=== PATIENT | female | born 1955 | race Caucasian/White ===

== ENCOUNTER → 2018-02-10 02:24 | Outpatient (CLI) | payer OTHER, SELFPAY ==
[2018-02-10 12:58] LABS: Hemoglobin A1C 7.5 % (4.5-6.2)
[2018-02-10 13:10] LABS: ALT 17 U/L (12-78); AST 9 U/L (15-37); Albumin 3.5 g/dL (3.4-5.0); Alkaline Phosphatase 75 U/L (46-116); Anion Gap 5.8 mmol/L (3-11); BUN 15 mg/dL (7-18); Bilirubin, Total 0.8 mg/dL (0.2-1.0); CO2 32.2 mmol/L (21.0-32.0); CREATININE 0.79 mg/dL (0.55-1.02); Calcium 9.1 mg/dL (8.5-10.1); Chloride 103 mmol/L (98-107); Cholesterol 143 mg/dL (50-200); Glucose 161 mg/dL (70-100); HDL Cholesterol 62 mg/dL (40-60); LDL CHOLESTEROL 71 mg/dL (<100); Potassium 4.5 mmol/L (3.5-5.1); Sodium 141 mmol/L (136-145); Total Protein 6.7 g/dL (6.4-8.2); Triglyceride 66 mg/dL (30-150)
[2018-02-10 13:30] LABS: COMMENT (LAB VIEW ONLY) 35.19 mg/dL; Microalb ug/mg Crea 30.7 ug/mg Cr
== END ==
PROVIDERS: PCP Family Medicine; Visit Provider Family Medicine
DX: E78.5 Hyperlipidemia, unspecified (principal); E03.9 Hypothyroidism, unspecified; E11.8 Type 2 diabetes mellitus with unspecified complications; Z79.4 Long term (current) use of insulin
CPT/HCPCS: 36415; 80053; 80061; 83721; 82043; 82570; 83036; 84443

== ENCOUNTER 2018-03-05 14:25 | Emergency (ER) | payer OTHER, SELFPAY ==
[2018-03-05] VITALS (46 sets, daily range): BP systolic 66–146; BP diastolic 40–113; PULSE 57–88; RESP 11–26; TEMP 36.8; O2SAT 92–98
--- NOTE | 2018-03-05 14:57 | W.ED.GENAD ---
Discharge Plan Disposition Patient Disposition: HOME Condition: Stable Discharge Details Chief Complaint: Chest Pain Clinical Impression: Chest pain Primary Care Provider: Rocio Mo ED Provider: Lashell Whalen Home Meds and New Rx's Prescriptions: Continue amitriptyline 25 MG tablet 25 mg PO HS Qty: 30 RF: 12 montelukast 10 MG tablet 10 mg PO DAILY Qty: 90 RF: 4 insulin glargine [Lantus Solostar U-100 Insulin] 100 UNIT/1 ML insulin pen 34 unit SQ HS Qty: 3 RF: 6 pen needle, diabetic [BD Ultra-Fine Jhoana Pen Needle] 1 EACH needle 1 ea Miscellaneous DAILY Qty: 100 RF: 3 blood sugar diagnostic [OneTouch Verio] 1 EACH strip 1 ea Miscellaneous 4-6 times/day Qty: 100 RF: 3 mirabegron [Myrbetriq] 25 MG tablet extended release 24 hr 25 mg PO DAILY Qty: 30 RF: 11 trazodone 50 MG tablet 50 - 100 mg PO HS PRNQty: 180 RF: 4 pravastatin 40 MG tablet 40 mg PO DAILY Qty: 90 RF: 4 lisinopril 20 MG tablet 20 mg PO DAILY Qty: 90 RF: 4 levothyroxine 50 MCG tablet 50 mcg PO DAILY Qty: 90 RF: 2 insulin lispro [Humalog KwikPen Insulin] 100 UNIT/1 ML insulin pen 1 - 20 units SQ AC MDD 60 Qty: 3 RF: 6 metformin 500 MG tablet 500 mg PO BID Qty: 180 RF: 2 albuterol sulfate [ProAir HFA] 8.5 GM HFA aerosol inhaler 1 - 2 puff Inhalation QID PRNQty: 3 RF: 6 empagliflozin [Jardiance] 25 MG tablet 25 mg PO DAILY Qty: 30 RF: 4 aspirin [Aspir-81] 81 MG tablet,delayed release (DR/EC) 81 mg PO HS RF: 0 albuterol sulfate 3 ML solution for nebulization 3 ml UPD Q6H PRN PRNQty: 30 RF: 0 Discharge Instructions Instructions: Chest Pain (ED) Additional Instructions: Please return immediately to the emergency department if you develop any new or worsening symptoms or if you become otherwise concerned. It is extremely important that you make an appointment to be seen by your primary care doctor and have a stress test performed in the next 48 hours. Please call [phone] if you have any difficulty scheduling department Referrals: Rocio Mo MD [Primary Care Provider] - Discharge Data Discharge Date/Time-TO BE ENTERED AT DEPARTURE: 03/05/18 21:38 Medical Decision Making MDM Narrative Medical decision making narrative: Preeti Garner is a 62 y/o woman with history of COPD, diabetes, hypertension, hyperlipidemia, GERD, hypothyroidism presenting to the emergency department with intermittent chest pain that last for seconds at a time that has been occurring over the last 3 months (and also approx 1 yr ago with neg stress test), non-exertional. On exam Pt is well and non-toxic appearing. + cardiac mumur known to Pt, otherwise normal cardiopulmonary exam. Concern for MSK vs pericarditis vs other, doubt ACS or PE. Pt does have cardiac risk factors, but long-standing pain without worsening and nature of pain (lasting for seconds, non-exertional) makes ACS very unlikely. Exam/hx not c/w acute aortic pathology. Plan for EKG, CXR, screening labs, ASA, telemetry. Pt continues to have no pain. EKG, CXR non-diagnostic. Trop neg. Out of abdundance of caution, plan for repeat trop and EKG given intermittent pain. A diagnosis of pulmonary embolism was considered. ?Low clinical suspicion. ?D-Dimer negative. ?A low clinical suspicion with a negative D-Dimer makes the risk of PE <2% and I doubt PE as a disease process in this patient. On reassessment Pt well without complaint. 2nd trop neg. No ischemic dynamic changes on rpt EKG. Plan for outpt stress test and PCP f/u. Pt placed on list for care management involvement in f/u plan. Lengthy discussion with Pt re: RTED precatuons and importance of outpt f/u with PCP, stress test. Pt is amenable to the plan. Medical Records Medical records reviewed: Yes I reviewed the patient's medical records. Imaging Data Radiologic Study: Attestation: I personally reviewed and interpreted this imaging study as follows: Imaging: X-Ray Radiologist's impression: CHEST X-RAY, PA AND LATERAL: Comparison is 12/05/17. The heart size is within normal limits. The pulmonary vasculature appears stable. The lungs remain clear. No effusions or pneumothoraces are identified. Degenerative changes are seen in the spine. Surgical clips are again noted in the right upper quadrant of the abdomen. IMPRESSION: No acute pulmonary process. Lab Data Lab results reviewed: Yes I reviewed the patient's lab results. ECG Data Attestation: I personally reviewed and interpreted this ECG (s) as follows: Prior ECG tracings: not available for review Interpretation: EKG #1 shows NSR at 85 with inc RBBB, ST changes leads I and aVL, no prior for comparison. No STEMI, non-diagnostic EKG #2 shows NSR at 70 with inc RBBB, ST changes aVL, no dynamic ischemic changes. No STEMI, non-diagnostic. HPI - General Adult General Mode of arrival: ambulatory. Date/Time Provider Initiated Documentation: 03/05/18 14:41. Limitations to Documentation: no limitations. Information obtained by: patient and family. HPI Narrative: Preeti Garner is a 62 y/o woman with history of COPD, diabetes, hypertension, hyperlipidemia, GERD, hypothyroidism presenting to emergency department with chest pain. Patient reports that she has had intermittent chest pain over the past 3 months. She reports that pain is a pressure sensation and lasts for a few seconds at a time. 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 It resolved, and she currently does not have chest pain. She reports that she does not have chest pain with exertion and it also does not seem related to movement, position, or deep breathing. She did have a stress test last year for similar pain that was negative. She has baseline shortness of breath from COPD that is not worse than usual. She denies any other pain, nausea, vomiting, sweating, numbness, tingling, weakness, fever, cough. Feels otherwise in her usual state of health. No recent travel or mobilization. Related Data Home Medications Medication Instructions Recorded Confirmed aspirin [Aspir-81] 81 mg PO HS 11/01/14 03/05/18 amitriptyline 25 mg PO HS #30 tab 09/06/16 trazodone 50 - 100 mg PO HS PRN #180 tab 09/23/17 albuterol sulfate [ProAir HFA] 1 - 2 puff INHALATION QID PRN #3 10/25/17 inhaler Previous Rx's Medication Instructions Recorded albuterol sulfate 3 ml UPD Q6H PRN PRN #30 vial 03/29/15 montelukast 10 mg PO DAILY #90 tab-cap 04/03/17 insulin glargine [Lantus Solostar 34 unit SQ HS #3 box 06/13/17 U-100 Insulin] pen needle, diabetic [BD #100 ndl 07/24/17 Ultra-Fine Jhoana Pen Needle] blood sugar diagnostic [OneTouch #100 strip 08/08/17 Verio] mirabegron [Myrbetriq] 25 mg PO DAILY #30 tab-cap 08/08/17 levothyroxine 50 mcg PO DAILY #90 tab-cap 09/23/17 lisinopril 20 mg PO DAILY #90 tab-cap 09/23/17 pravastatin 40 mg PO DAILY #90 tab-cap 09/23/17 insulin lispro [Humalog KwikPen 1 - 20 units SQ AC #3 box MDD 60 10/09/17 Insulin] metformin 500 mg PO BID #180 tab-cap 10/23/17 empagliflozin [Jardiance] 25 mg PO DAILY #30 tab-cap 10/30/17 Allergies Allergy/AdvReac Type Severity Reaction Status Date / Time egg AdvReac Intermediate ABDOMINAL Unverified 03/05/18 14:45 PAIN influenza virus vaccine, AdvReac Unknown NAUSEA/VOMI Unverified 03/05/18 14:45 specific TING sulfamethoxazole AdvReac Unknown NAUSEA/VOMI Unverified 03/05/18 14:45 TING trimethoprim AdvReac Unknown Unverified 03/05/18 14:45 General Stated Complaint: Chest Pain LUZ: 2 Review of Systems Review of Systems Constitutional: denies fevers Eyes: denies eye pain ENT: denies facial pain, dental pain, sore throat Cardiovascular: denies edema, reports chest pain Respiratory: denies SOB, cough GI: denies abdominal pain, vomiting, diarrhea : denies flank pain MSK: denies back pain, neck pain, arhtralgias, myalgias Skin: denies rash Neuro: denies headaches, lightheadedness, weakness PFSH Family History Mother Essential hypertension COPD (chronic obstructive pulmonary disease) Depression Heart disease Neoplasm Father Hodgkins disease Sister Essential hypertension Sister Diabetes Essential hypertension COPD (chronic obstructive pulmonary disease) Neoplasm Asthma Grandfather No problems noted. Grandfather Personal history of malignant neoplasm Grandmother No problems noted. Grandmother Essential hypertension Sister Substance abuse Alcohol abuse Son No problems noted. Son Asthma Medical History COPD (chronic obstructive pulmonary disease) Cardiac murmur Depressive disorder Fibromyalgia Hyperlipidemia Mixed stress and urge urinary incontinence Non-proliferative diabetic retinopathy Type 2 diabetes mellitus Uterine prolapse Social History Smoking/Tobacco Use Status: Never Surgical History Breast, Lumpectomy Cholecystectomy Fracture, Open Treatment (08/08/10) MOLE REMOVAL Open Carpal Tunnel release (~1999) Tonsillectomy Exam Narrative Exam Narrative: Constitutional: well and [id number], pleasant, conversing normally HENT: head atraumatic, normocephalic normal inspection, mucous membranes moist Eyes: conjunctiva normal, sclera normal, pupils 3mm b/l Neck: no stridor, normal ROM, trachea midline Chest: normal inspection Resp: normal work of breathing, LCTAB Cardio: normal rate, normal rhythm, + murmur known to Pt GI: abdomen soft, non-tender, non-distended Back: normal inspection, no rash Skin: warm, dry, normal color, no rash Neuro: alert, not altered, grossly non-focal, normal tone Ext: no edema Psych: normal mood, normal affect, normal behavior Course Vital Signs Temperature 36.8 C 03/05/18 14:41 Pulse 81 03/05/18 14:41 Respiratory Rate 24 03/05/18 14:41 Blood Pressure 128/53 L 03/05/18 14:41 Pulse Oximetry 93 L 03/05/18 14:41 Temperature 36.8 C 03/05/18 14:41 Pulse 81 03/05/18 14:41 Respiratory Rate 26 H 03/05/18 14:48 Blood Pressure 128/53 L 03/05/18 14:41 Pulse Oximetry 93 L 03/05/18 14:41
[2018-03-05 15:38] LABS: Abs Immature Grans 0.01 k/cumm (0.0-0.09); Absolute Basophil Count 0.08 k/cumm (0.0-0.2); Absolute Lymphocyte Count 2.47 k/cumm (1.2-3.4); Absolute Monocyte Count 0.49 k/cumm (0.11-0.7); Absolute Neutrophil Count 4.51 k/cumm (1.2-6.7); Eosinophils % 2.6; HCT 40.8 % (36.0-46.0); HGB 13.6 g/dL (12.0-15.5); Immature Grans % 0.1; Lymphocytes % 31.8; Mean Corp. HGB Concentration 33.3 g/dL (32.0-36.0); Mean Corpuscular Hemoglobin 29.7 pg (27.0-33.0); Mean Corpuscular Volume 89.1 fL (80-95); Mean Platelet Volume 10.7 fL (8.0-11.0); Monocytes % 6.3; Neutrophils % 58.2; Platelet Count 274 x1000/uL (130-400); RBC 4.58 m/cumm (4.00-5.20); White Blood Cell Count 7.76 k/cumm (4.4-10.8)
[2018-03-05 15:57] LABS: ALT 21 U/L (12-78); AST 9 U/L (15-37); Albumin 3.5 g/dL (3.4-5.0); Alkaline Phosphatase 96 U/L (46-116); Anion Gap 5.9 mmol/L (3-11); BUN 15 mg/dL (7-18); Bilirubin, Total 0.5 mg/dL (0.2-1.0); CO2 32.1 mmol/L (21.0-32.0); CREATININE 0.84 mg/dL (0.55-1.02); Chloride 102 mmol/L (98-107); Glucose 280 mg/dL (70-100); Potassium 3.7 mmol/L (3.5-5.1); Sodium 140 mmol/L (136-145); Total Protein 7.1 g/dL (6.4-8.2)
[2018-03-05 15:58] LABS: Troponin I < 0.02 ng/mL (0.00-0.06)
[2018-03-05 16:16] LABS: D-Dimer 497 ng/mlFEU (<500)
--- NOTE | 2018-03-05 16:27 | ED.GENADUL_ITS ---
Discharge Plan Disposition Patient Disposition: HOME Condition: Stable Discharge Details Chief Complaint: Chest Pain Clinical Impression: Chest pain Primary Care Provider: Rocio Mo ED Provider: Lashell Whalen Home Meds and New Rx's Prescriptions: Continue amitriptyline 25 MG tablet 25 mg PO HS Qty: 30 RF: 12 montelukast 10 MG tablet 10 mg PO DAILY Qty: 90 RF: 4 insulin glargine [Lantus Solostar U-100 Insulin] 100 UNIT/1 ML insulin pen 34 unit SQ HS Qty: 3 RF: 6 pen needle, diabetic [BD Ultra-Fine Jhoana Pen Needle] 1 EACH needle 1 ea Miscellaneous DAILY Qty: 100 RF: 3 blood sugar diagnostic [OneTouch Verio] 1 EACH strip 1 ea Miscellaneous 4-6 times/day Qty: 100 RF: 3 mirabegron [Myrbetriq] 25 MG tablet extended release 24 hr 25 mg PO DAILY Qty: 30 RF: 11 trazodone 50 MG tablet 50 - 100 mg PO HS PRNQty: 180 RF: 4 pravastatin 40 MG tablet 40 mg PO DAILY Qty: 90 RF: 4 lisinopril 20 MG tablet 20 mg PO DAILY Qty: 90 RF: 4 levothyroxine 50 MCG tablet 50 mcg PO DAILY Qty: 90 RF: 2 insulin lispro [Humalog KwikPen Insulin] 100 UNIT/1 ML insulin pen 1 - 20 units SQ AC MDD 60 Qty: 3 RF: 6 metformin 500 MG tablet 500 mg PO BID Qty: 180 RF: 2 albuterol sulfate [ProAir HFA] 8.5 GM HFA aerosol inhaler 1 - 2 puff Inhalation QID PRNQty: 3 RF: 6 empagliflozin [Jardiance] 25 MG tablet 25 mg PO DAILY Qty: 30 RF: 4 aspirin [Aspir-81] 81 MG tablet,delayed release (DR/EC) 81 mg PO HS RF: 0 albuterol sulfate 3 ML solution for nebulization 3 ml UPD Q6H PRN PRNQty: 30 RF: 0 Discharge Instructions Instructions: Chest Pain (ED) Additional Instructions: Please return immediately to the emergency department if you develop any new or worsening symptoms or if you become otherwise concerned. It is extremely important that you make an appointment to be seen by your primary care doctor and have a stress test performed in the next 48 hours. Please call [phone] if you have any difficulty scheduling department Referrals: Rocio Mo MD [Primary Care Provider] - Discharge Data Discharge Date/Time-TO BE ENTERED AT DEPARTURE: 03/05/18 21:38 Medical Decision Making MDM Narrative Medical decision making narrative: Preeti Garner is a 62 y/o woman with history of COPD, diabetes, hypertension, hyperlipidemia, GERD, hypothyroidism presenting to the emergency department with intermittent chest pain that last for seconds at a time that has been occurring over the last 3 months (and also approx 1 yr ago with neg stress test), non-exertional. On exam Pt is well and non-toxic appearing. + cardiac mumur known to Pt, otherwise normal cardiopulmonary exam. Concern for MSK vs pericarditis vs other, doubt ACS or PE. Pt does have cardiac risk factors, but long-standing pain without worsening and nature of pain (lasting for seconds, non-exertional) makes ACS very unlikely. Exam/hx not c/w acute aortic pathology. Plan for EKG, CXR, screening labs, ASA, telemetry. Pt continues to have no pain. EKG, CXR non-diagnostic. Trop neg. Out of abdundance of caution, plan for repeat trop and EKG given intermittent pain. A diagnosis of pulmonary embolism was considered. ?Low clinical suspicion. ?D- Dimer negative. ?A low clinical suspicion with a negative D-Dimer makes the risk of PE <2% and I doubt PE as a disease process in this patient. On reassessment Pt well without complaint. 2nd trop neg. No ischemic dynamic changes on rpt EKG. Plan for outpt stress test and PCP f/u. Pt placed on list for care management involvement in f/u plan. Lengthy discussion with Pt re: RTED precatuons and importance of outpt f/u with PCP, stress test. Pt is amenable to the plan. Medical Records Medical records reviewed: Yes I reviewed the patient's medical records. Imaging Data Radiologic Study: Attestation: I personally reviewed and interpreted this imaging study as follows: Imaging: X-Ray Radiologist's impression: CHEST X-RAY, PA AND LATERAL: Comparison is 12/05/17. The heart size is within normal limits. The pulmonary vasculature appears stable. The lungs remain clear. No effusions or pneumothoraces are identified. Degenerative changes are seen in the spine. Surgical clips are again noted in the right upper quadrant of the abdomen. IMPRESSION: No acute pulmonary process. Lab Data Lab results reviewed: Yes I reviewed the patient's lab results. ECG Data Attestation: I personally reviewed and interpreted this ECG (s) as follows: Prior ECG tracings: not available for review Interpretation: EKG #1 shows NSR at 85 with inc RBBB, ST changes leads I and aVL , no prior for comparison. No STEMI, non-diagnostic EKG #2 shows NSR at 70 with inc RBBB, ST changes aVL, no dynamic ischemic changes. No STEMI, non-diagnostic. HPI - General Adult General Mode of arrival: ambulatory . Date/Time Provider Initiated Documentation: 03/05/18 14:41 . Limitations to Documentation: no limitations . Information obtained by: patient and family . HPI Narrative: Preeti Garner is a 62 y/o woman with history of COPD, diabetes, hypertension, hyperlipidemia, GERD, hypothyroidism presenting to emergency department with chest pain. Patient reports that she has had intermittent chest pain over the past 3 months. She reports that pain is a pressure sensation and lasts for a few seconds at a time. 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 It resolved, and she currently does not have chest pain. She reports that she does not have chest pain with exertion and it also does not seem related to movement, position , or deep breathing. She did have a stress test last year for similar pain that was negative. She has baseline shortness of breath from COPD that is not worse than usual. She denies any other pain, nausea, vomiting, sweating, numbness, tingling, weakness, fever, cough. Feels otherwise in her usual state of health. No recent travel or mobilization. Related Data Home Medications Medication Instructions Recorded Confirmed aspirin [Aspir-81] 81 mg PO HS 11/01/14 03/05/18 amitriptyline 25 mg PO HS #30 tab 09/06/16 trazodone 50 - 100 mg PO HS PRN #180 tab 09/23/17 albuterol sulfate [ProAir HFA] 1 - 2 puff INHALATION QID PRN #3 10/25/17 inhaler Previous Rx's Medication Instructions Recorded albuterol sulfate 3 ml UPD Q6H PRN PRN #30 vial 03/29/15 montelukast 10 mg PO DAILY #90 tab-cap 04/03/17 insulin glargine [Lantus Solostar 34 unit SQ HS #3 box 06/13/17 U-100 Insulin] pen needle, diabetic [BD #100 ndl 07/24/17 Ultra-Fine Jhoana Pen Needle] blood sugar diagnostic [OneTouch #100 strip 08/08/17 Verio] mirabegron [Myrbetriq] 25 mg PO DAILY #30 tab-cap 08/08/17 levothyroxine 50 mcg PO DAILY #90 tab-cap 09/23/17 lisinopril 20 mg PO DAILY #90 tab-cap 09/23/17 pravastatin 40 mg PO DAILY #90 tab-cap 09/23/17 insulin lispro [Humalog KwikPen 1 - 20 units SQ AC #3 box MDD 60 10/09/17 Insulin] metformin 500 mg PO BID #180 tab-cap 10/23/17 empagliflozin [Jardiance] 25 mg PO DAILY #30 tab-cap 10/30/17 Allergies Allergy/AdvReac Type Severity Reaction Status Date / Time egg AdvReac Intermediate ABDOMINAL Unverified 03/05/18 14:45 PAIN influenza virus vaccine, AdvReac Unknown NAUSEA/VOMI Unverified 03/05/18 14:45 specific TING sulfamethoxazole AdvReac Unknown NAUSEA/VOMI Unverified 03/05/18 14:45 TING trimethoprim AdvReac Unknown Unverified 03/05/18 14:45 General Stated Complaint: Chest Pain LUZ: 2 Review of Systems Review of Systems Constitutional: denies fevers Eyes: denies eye pain ENT: denies facial pain, dental pain, sore throat Cardiovascular: denies edema, reports chest pain Respiratory: denies SOB, cough GI: denies abdominal pain, vomiting, diarrhea : denies flank pain MSK: denies back pain, neck pain, arhtralgias, myalgias Skin: denies rash Neuro: denies headaches, lightheadedness, weakness PFSH Family History Mother Essential hypertension COPD (chronic obstructive pulmonary disease) Depression Heart disease Neoplasm Father Hodgkins disease Sister Essential hypertension Sister Diabetes Essential hypertension COPD (chronic obstructive pulmonary disease) Neoplasm Asthma Grandfather No problems noted. Grandfather Personal history of malignant neoplasm Grandmother No problems noted. Grandmother Essential hypertension Sister Substance abuse Alcohol abuse Son No problems noted. Son Asthma Medical History COPD (chronic obstructive pulmonary disease) Cardiac murmur Depressive disorder Fibromyalgia Hyperlipidemia Mixed stress and urge urinary incontinence Non-proliferative diabetic retinopathy Type 2 diabetes mellitus Uterine prolapse Social History Smoking/Tobacco Use Status: Never Surgical History Breast, Lumpectomy Cholecystectomy Fracture, Open Treatment (08/08/10) MOLE REMOVAL Open Carpal Tunnel release (~1999) Tonsillectomy Exam Narrative Exam Narrative: Constitutional: well and [id number], pleasant, conversing normally HENT: head atraumatic, normocephalic normal inspection, mucous membranes moist Eyes: conjunctiva normal, sclera normal, pupils 3mm b/l Neck: no stridor, normal ROM, trachea midline Chest: normal inspection Resp: normal work of breathing, LCTAB Cardio: normal rate, normal rhythm, + murmur known to Pt GI: abdomen soft, non-tender, non-distended Back: normal inspection, no rash Skin: warm, dry, normal color, no rash Neuro: alert, not altered, grossly non-focal, normal tone Ext: no edema Psych: normal mood, normal affect, normal behavior Course Vital Signs Temperature 36.8 C 03/05/18 14:41 Pulse 81 03/05/18 14:41 Respiratory Rate 24 03/05/18 14:41 Blood Pressure 128/53 L 03/05/18 14:41 Pulse Oximetry 93 L 03/05/18 14:41 Temperature 36.8 C 03/05/18 14:41 Pulse 81 03/05/18 14:41 Respiratory Rate 26 H 03/05/18 14:48 Blood Pressure 128/53 L 03/05/18 14:41 Pulse Oximetry 93 L 03/05/18 14:41
[2018-03-05 16:46] LABS: TSH (W/Ref FT4) 1.63 uIU/mL (0.358-3.74)
[2018-03-05] MEDS: Aspirin 81 MG CHEW 324 MG CH (19:13)
[2018-03-05 21:21] LABS: Troponin I < 0.02 ng/mL (0.00-0.06)
--- NOTE | 2018-03-06 13:06 | PDOC.ERCMPRO ---
Care Management Progress Note 03/06/18-Pt seen on 03/05/18 for chest pain by Dr. Meliza crawford. Referral handed to Ender at [facility] for Stress Test and request for f/u with [facility] at [facility] faxed.
== END 2018-03-05 21:38 | disposition home or self-care (01) ==
PROVIDERS: Emergency Provider Student in an Organized Health Care Education/Training Program; PCP Family Medicine
DX: R07.9 Chest pain, unspecified (principal); J44.9 Chronic obstructive pulmonary disease, unspecified; E11.9 Type 2 diabetes mellitus without complications; Z79.4 Long term (current) use of insulin; I10 Essential (primary) hypertension
CPT/HCPCS: 36415; 36416; 80053; 82962; 93005; 99284; 71046; 84443; 84484; 85025; 85379; 93010

== ENCOUNTER 2018-03-14 00:06 | Outpatient (CLI) | payer OTHER, SELFPAY ==
--- NOTE | 2018-03-14 08:30 | ETT_ITS ---
*[facility]* *[facility]* [address] [place] [address] Stress Electrocardiography Derek protocol Date of study: 03/14/2018 *PATIENT PRESENTATION* Height: 157.5cm (62in) Blood Pressure: Weight: 102.3kg (225lb) BSA: 2.17m^2 Ordering physician: Luis Whalen Impressions: - Normal study after maximal exercise. - Atypical CP without EKG correlate. Summary: 1. Stress ECG conclusions: The stress ECG is negative. Occasional ventricular ectopy. 2. Stress: The target heart rate was achieved. There is a normal resting blood pressure with a hypertensive response to stress. Stress-induced atypical chest pain. Exercise capacity is average for age. Indication: R07.9. History: Patient's presenting symptoms: asymptomatic. REASON FOR VISIT: PATIENT PRESENTED TO THE EMERGENCY ROOM 03/05/18 WITH 2/10 NON-EXERTIONAL, INTERMITTENT LEFT-SIDED CHEST PAIN DESCRIBED A PRESSURE SENSATION. THE CHEST PAIN LASTS FOR A FEW SECONDS AT A TIME RESOLVING WITHOUT INTERVENTION AND HAS BEEN OCCURRING OVER THE LAST THREE MONTHS. TROPONINS NEGATIVE X 2. NO ISCHEMIC CHANGES NOTED ON EKG. PATIENT REPORTS INCREASE IN EMOTIONAL STRESS. PATIENT LAST EXPERIENCED CHEST PAIN SENSATION EARLIER THIS MORNING. MPI RESTING AND STRESS TEST ON 03/07/16 WAS NEGATIVE. PAST MEDICAL HISTORY: CHRONIC OBSTRUCTIVE PULMONARY DISEASE, HYPERTENSION, HYPERLIPIDEMIA, GERD, HYPOTHYROIDISM, CARDIAC MURMUR, DEPRESSIVE DISORDER, FIBROMYALGIA, STRESS AND URGE URINARY INCONTINENCE, NON-PROLIFERATIVE DIABETIC RETINOPATHY, TYPE 2 DIABETES MELLITUS, UTERINE PROLAPSE. FAMILY HISTORY: MOTHER - HYPERTENSION, CHRONIC OBSTRUCTIVE PULMONARY DISEASE, HEART DISEASE. SISTER - HYPERTENSION, DIABETES, CHRONIC OBSTRUCTIVE PULMONARY DISEASE, ASTHMA. SMOKING STATUS: NEVER SMOKER. EXERCISE ROUTINE: NONE. PMH: COPD. Risk factors: Family history of coronary artery disease. Hypertension. Diabetes mellitus. Obesity. Dyslipidemia. Cholesterol: 149mg/dl. HDL: 62mg/dl. LDL: 71mg/dl. Triglycerides: 66mg/dl. ALLERGIES: EGG, INFLUENZA VIRUS VACCINE, SULFAMETHOXAZOLE, TRIMETHOPRIM. MEDICATIONS: AMITRIPTYLINE 25 MG, HS. MOTELUKAST 10MG, DAILY. MIRABEGRON 25MG, DAILY. TRAZODONE 50MG, HS. PRAVASTATIN 40MG, DAILY. LISINOPRIL 20MG, DAILY. LEVOTHYROXINE 50MCG, DAILY. INSULIN LISPRO, AC. METFORMIN 500MG, BID. ALBUTEROL SULFATE, QID. EMPAGLIFLOZIN 25MG, DAILY. ASPIRIN 81MG, HS. Protocol: Derek protocol. Baseline ECG: SINUS RHYTHM WITH INCOMPLETE BUNDLE BRANCH BLOCK.. HEART RATE 69 BPM. Stress protocol: + +---+ + + + !Stage !HR !BP (mmHg) !Rhythm !Symptoms ! + +---+ + + + !Baseline supine !69 !110/62 (78) ! ! ! + +---+ + + + !Baseline standing !74 !120/60 (80) ! ! ! + +---+ + + + !Stage I; 1.7mph, !117!180/92 (121) ! ! ! !10degrees; 3 min ! ! ! ! ! + +---+ + + + !Stage II; 2.5mph, !150!210/100 (137)!Frequent PVC's! ! !12degrees; 3 min ! ! ! ! ! + +---+ + + + !Peak stress !150! ! ! ! + +---+ + + + !Recovery; 1 min !141!200/70 (113) ! !2 out of 10 chest ! ! ! ! ! !discomfort ! + +---+ + + + !Recovery; 3 min !102!180/70 (107) ! !Resolved ! + +---+ + + + !Recovery; 6 min !85 !128/64 (85) ! ! ! + +---+ + + + * Stress results: Maximal heart rate during stress was 150bpm (96% of maximal predicted heart rate). The maximal predicted heart rate was 157bpm. The target heart rate was achieved. There is a normal resting blood pressure with a hypertensive response to stress. The rate-pressure product for the peak heart rate and blood pressure was 86398ie Hg/min. Stress-induced atypical chest pain. Exercise capacity is average for age. Stress ECG: TREADMILL PORTION OF EXERCISE STRESS TEST ENDED IN 5MIN 39SEC DUE TO PATIENT FATIGUE. APPROPRIATE HEART RATE RESPONSE TO EXERCISE. HYPERTENSIVE BLOOD PRESSURE RESPONSE TO EXERCISE. MAX HEART RATE 150 BPM, 95% OF TARGET. APPROXIMATE METS ACHIEVED 7.05. 2/10 LEFT SIDED CHEST PAIN REPORTED WITH IMMEDIATE CESSATION OF EXERCISE. RESOLVED WITHIN ONE MINUTE. PVCS NOTED DURING STAGE TWO, INCREASING IN FREQUENCY UNTIL CESSATION OF EXERCISE. NO PVCS NOTED DURING RECOVERY PERIOD. NO SIGNIFICANT ST SEGMENT CHANGES NOTED. AVERAGE FUNCTIONAL CAPACITY. The stress ECG is negative. Occasional ventricular ectopy. Study data: Florentino Resendiz MD supervised and was readily available during the procedure. This study was interpreted by [facility]. Study status: Routine. Consent: The risks, benefits, and alternatives to the procedure were explained to the patient and informed consent was obtained. Procedure: Initial setup. A baseline ECG was recorded. Surface ECG leads and manual cuff blood pressure measurements were monitored. Heart sounds: Normal. Lung sounds: Normal. Supplemental oxygen. Oxygen, at an FIO2 of 95% was administered throughout the procedure. Treadmill exercise testing was performed using the Derek protocol. Study completion: The patient tolerated the procedure well and was discharged from the lab. Discharge: The patient left the laboratory in stable condition. Birthdate: Patient birthdate: 1955. Sex: Gender: female. Study date: Study date: 03/14/2018. Study time: 08:30 AM. Signature Documentation: The Stress ECG portion of this study was interpreted by Florentino Resendiz MD. Electronically signed by Florentino Resendiz 03/14/2018 16:18
== END 2018-03-14 00:26 ==
PROVIDERS: PCP Family Medicine; Visit Provider Student in an Organized Health Care Education/Training Program
DX: R07.89 Other chest pain (principal); I10 Essential (primary) hypertension; E78.5 Hyperlipidemia, unspecified; E03.9 Hypothyroidism, unspecified; E11.39 Type 2 diabetes mellitus with other diabetic ophthalmic complication; Z79.4 Long term (current) use of insulin; K21.9 Gastro-esophageal reflux disease without esophagitis; J44.9 Chronic obstructive pulmonary disease, unspecified
CPT/HCPCS: 93016; 93018; 93017

== ENCOUNTER 2018-05-12 14:41 | Emergency (ER) | payer OTHER, SELFPAY ==
[2018-05-12 14:54] VITALS: BP 152/57; PULSE 65; RESP 63; TEMP 36.6; O2SAT 97
--- NOTE | 2018-05-12 15:02 | ED.GENADUL_ITS ---
Discharge Plan Disposition Patient Disposition: HOME Condition: Stable Discharge Details Chief Complaint: Orthopedic Clinical Impression: Knee pain, left, Leg pain, left, Effusion, left knee, Arthritis of knee Primary Care Provider: Rocio Mo ED Provider: Judi Jeffries Home Meds and New Rx's Prescriptions: Continue lisinopril 20 MG tablet 20 mg PO DAILY Qty: 90 RF: 4 metformin 500 MG tablet 500 mg PO BID Qty: 180 RF: 2 montelukast 10 mg tablet 10 mg PO DAILY Qty: 90 RF: 4 albuterol sulfate [ProAir HFA] 90 mcg/actuation HFA aerosol inhaler 1 - 2 puff Inhalation QID PRN (Reason: bronchospasm) Qty: 3 RF: 4 insulin glargine [Lantus Solostar U-100 Insulin] 100 unit/mL (3 mL) insulin pen 34 unit subcut HS Qty: 3 RF: 6 mirabegron [Myrbetriq] 25 mg tablet extended release 24 hr 25 mg PO DAILY Qty: 90 RF: 4 empagliflozin [Jardiance] 25 mg tablet 25 mg PO DAILY Qty: 90 RF: 4 pen needle, diabetic [BD Ultra-Fine Jhoana Pen Needle] 32 gauge x 5/32 needle 1 ea Miscellaneous DAILY Qty: 300 RF: 6 insulin lispro [Humalog KwikPen Insulin] 100 unit/mL insulin pen 1 - 20 unit subcut AC MDD 60 Qty: 3 RF: 6 blood sugar diagnostic [OneTouch Verio] strip 1 ea Miscellaneous 4-6 times/day Qty: 100 RF: 3 levothyroxine 50 mcg tablet 50 mcg PO DAILY Qty: 90 RF: 2 nabumetone 750 mg tablet 750 mg PO BID Qty: 60 RF: 2 pravastatin 40 mg tablet 40 mg PO DAILY Qty: 90 RF: 4 buspirone 10 mg tablet 10 mg PO .bid to tid Qty: 270 RF: 2 trazodone 50 mg tablet 50 - 100 mg PO HS PRN (Reason: insomnia) Qty: 180 RF: 4 aspirin [Aspir-81] 81 MG tablet,delayed release (DR/EC) 81 mg PO HS RF: 0 albuterol sulfate 3 ML solution for nebulization 3 ml UPD Q6H PRN PRNQty: 30 RF: 0 Discharge Instructions Instructions: Knee Pain (ED), Leg Pain (ED) Additional Instructions: Rest, ice, elevate left leg is much as possible. Alternate Tylenol and Motrin as needed and directed for pain. Follow-up with your primary care doctor in 1 week for reevaluation as needed and for referral to orthopedics with any worsening or persistent symptoms. Return to the emergency department with any significant worsening of symptoms or new concerns. Referrals: Wesly Wood MD [ [facility] STAFF PHYSICIAN] - Discharge Data Discharge Date/Time-TO BE ENTERED AT DEPARTURE: 05/12/18 18:32 Discharge Physician: Judi Jeffries Medical Decision Making 62yo F w/ L knee and calf pain x 1 week. Denies known injury. States pain started in knee, now radiating into L leg. Pain worse with weight bearing. No recent surgery or travel. Has h/o post-surgical dvt in 2000 and she in concerned about dvt at this time. Afebrile. Pt appears nontoxic. No evidence of infection or trauma to knee. 1+ pitting edema L leg. NV intact. + calf tenderness. DDx includes arthritis, effusion, alberts's cyst, dvt, strain or sprain. Will obtain L knee xray and L leg ultrasound to r/o dvt and give a dose of tylenol. 1730 -- L leg US negative for DVT. Small 1cm Fluid collection noted in posterior L knee. Xray notes mild suprapatellar effusion and degenerative changes. Results d/w pt that likely fluid collection may be cyst and may be contributing to pain but also may be due to arthritis. Juan Ramon wrap applied. Pt instructed on continuing ice, rest, elevation, tylenol and NSAIDs. She is instructed to f/u with pcp for reevaluation and with orthopedics if symptoms persist or worsen. Instructed to return here with any concerns. HPI General Mode of arrival: ambulatory . Date/Time Provider Initiated Documentation: 05/12/18 14:57 . Limitations to Documentation: no limitations . Information obtained by: patient . HPI Narrative: Pt is a 62yo F who presents to the ED w/ a c/o L knee and leg pain for the past week. Pt states the pain started in her L knee 1 week ago and now she has pain in the L leg and calf for the past few days. Pt states the pain is worse with standing/weight bearing. Pt has tried ice, rest, elevation and occasionally tylenol w/o relief. Pt takes nabumetone regularly for her arthritis but she denies any relief with this. Pt denies known injury. Pt admits to a h/o blood clot in her L leg in 2000 that occurred post surgery. She denies fever, redness, chest pain, shortness of breath, recent travel or recent surgery. Past medical history: COPD, GERD, DM, HLD, Fibromyalgia, Hypothyroidism, Osteoarthritis Surgical history: Breast lumpectomy, Cholecystectomy, Carpal tunnel release, Tonsillectomy, R ankle surgery Social history: Denies tobacco, alcohol or drugs Meds: See list Allergies: Sulfa, Flu vaccine, Egg PCP: Dr. Mo Related Data Home Medications Medication Instructions Recorded Confirmed aspirin [Aspir-81] 81 mg PO HS 11/01/14 03/18/18 albuterol sulfate 3 ml UPD Q6H PRN PRN #30 vial 03/29/15 03/18/18 lisinopril 20 mg PO DAILY #90 tab-cap 09/23/17 03/18/18 metformin 500 mg PO BID #180 tab-cap 10/23/17 03/18/18 montelukast 10 mg tablet 10 mg PO DAILY #90 tab-cap 04/03/18 albuterol sulfate HFA 90 1 - 2 puff INHALATION QID PRN #3 04/04/18 mcg/actuation aerosol inhaler inhaler blood sugar diagnostic strips #100 strip 04/04/18 buspirone 10 mg tablet 10 mg PO .bid to tid #270 tab 04/04/18 empagliflozin 25 mg tablet 25 mg PO DAILY #90 tab-cap 04/04/18 insulin glargine (U-100) 100 34 unit SUBCUT HS #3 box 04/04/18 unit/mL (3 mL) subcutaneous pen insulin lispro (U-100) 100 unit/mL 1 - 20 unit SUBCUT AC #3 ml MDD 60 04/04/18 subcutaneous pen levothyroxine 50 mcg tablet 50 mcg PO DAILY #90 tab-cap 04/04/18 mirabegron ER 25 mg 25 mg PO DAILY #90 tab-cap 04/04/18 tablet,extended release 24 hr nabumetone 750 mg tablet 750 mg PO BID #60 tab 04/04/18 pen needle, diabetic 32 gauge x #300 each 04/04/18 pravastatin 40 mg tablet 40 mg PO DAILY #90 tab-cap 04/04/18 trazodone 50 mg tablet 50 - 100 mg PO HS PRN #180 tab 04/04/18 Previous Rx's Medication Instructions Recorded albuterol sulfate 3 ml UPD Q6H PRN PRN #30 vial 03/29/15 lisinopril 20 mg PO DAILY #90 tab-cap 09/23/17 metformin 500 mg PO BID #180 tab-cap 10/23/17 montelukast 10 mg tablet 10 mg PO DAILY #90 tab-cap 04/03/18 albuterol sulfate HFA 90 1 - 2 puff INHALATION QID PRN #3 04/04/18 mcg/actuation aerosol inhaler inhaler blood sugar diagnostic strips #100 strip 04/04/18 buspirone 10 mg tablet 10 mg PO .bid to tid #270 tab 04/04/18 empagliflozin 25 mg tablet 25 mg PO DAILY #90 tab-cap 04/04/18 insulin glargine (U-100) 100 34 unit SUBCUT HS #3 box 04/04/18 unit/mL (3 mL) subcutaneous pen insulin lispro (U-100) 100 unit/mL 1 - 20 unit SUBCUT AC #3 ml MDD 60 04/04/18 subcutaneous pen levothyroxine 50 mcg tablet 50 mcg PO DAILY #90 tab-cap 04/04/18 mirabegron ER 25 mg 25 mg PO DAILY #90 tab-cap 04/04/18 tablet,extended release 24 hr nabumetone 750 mg tablet 750 mg PO BID #60 tab 04/04/18 pen needle, diabetic 32 gauge x #300 each 04/04/18 pravastatin 40 mg tablet 40 mg PO DAILY #90 tab-cap 04/04/18 trazodone 50 mg tablet 50 - 100 mg PO HS PRN #180 tab 04/04/18 Allergies Allergy/AdvReac Type Severity Reaction Status Date / Time egg AdvReac Intermediate ABDOMINAL Unverified 05/12/18 14:58 PAIN influenza virus vaccine, AdvReac Unknown NAUSEA/VOMI Unverified 05/12/18 14:58 specific TING sulfamethoxazole AdvReac Unknown NAUSEA/VOMI Unverified 05/12/18 14:58 TING trimethoprim AdvReac Unknown Unverified 05/12/18 14:58 General Stated Complaint: Orthopedic LUZ: 3 Review of Systems Review of Systems All systems reviewed & are unremarkable except as noted in HPI and below Constitutional Reports as per HPI, Denies chills and Denies fever(s) Eyes Denies blurry vision ENT Denies dizziness, Denies sore throat and Denies throat swelling Cardiovascular Denies chest pain and Denies dyspnea Respiratory Denies dyspnea Gastrointestinal Denies abdominal pain, Denies diarrhea and Denies vomiting Genitourinary Denies hematuria and Denies dysuria Musculoskeletal Denies back pain and Denies numbness Integumentary/Breasts Denies lesions and Denies rash Neurologic Denies dizziness and Denies numbness Allergic/Immunologic Denies throat swelling PFSH Family History Mother Essential hypertension COPD (chronic obstructive pulmonary disease) Depression Heart disease Neoplasm Father Hodgkins disease Sister Essential hypertension Sister Diabetes Essential hypertension COPD (chronic obstructive pulmonary disease) Neoplasm Asthma Grandfather No problems noted. Grandfather Personal history of malignant neoplasm Grandmother No problems noted. Grandmother Essential hypertension Sister Substance abuse Alcohol abuse Son No problems noted. Son Asthma Medical History COPD (chronic obstructive pulmonary disease) Cardiac murmur Depressive disorder Fibromyalgia Hyperlipidemia Mixed stress and urge urinary incontinence Non-proliferative diabetic retinopathy Type 2 diabetes mellitus Uterine prolapse Social History household members: other details: 2 current occupational status: disabled pets and animals: Yes pets and animals: cat(s) and dog(s) Smoking/Tobacco Use Status: Never second hand exposure: Yes alcohol intake: never substance use type: does not use hilario/gnosticist: OTHER special hilario needs: No Surgical History Breast, Lumpectomy Cholecystectomy Fracture, Open Treatment (08/08/10) MOLE REMOVAL Open Carpal Tunnel release (~1999) Tonsillectomy Exam Const General: cooperative, healthy appearing and no acute distress HENMT Head: normal to inspection Mouth: oral mucosae normal Eyes General: appearance normal, both eyes and all related structures Neck Neck: normal visual inspection Resp Effort & Inspection: normal respiratory effort and able to speak in complete sentences Cardio Rate: regular rate Skin General skin exam: no rashes or lesions noted Neuro General: alert, awake and oriented x3 Motor: muscle tone normal throughout Extrem Left lower extremity: knee (Pain in L knee with ROM/valgus/varus stress. Negative anterior/posterior drawer test. No edema/ecchymoses/erythema to L knee. ), lower leg (Minimal L calf tenderness) Details: pitting edema Details: 1 +; no erythema, no ecchymosis, no crepitus and no deformity, ankle Details: normal to inspection and normal ROM; no tenderness and edema and foot Details: normal capillary refill, no edema and vascular exam Details: dorsalis pedis pulse present and posterior tibial pulse present; no tenderness Psych Appearance: grossly normal Affect: normal affect Course Vital Signs Temperature 97.9 F 05/12/18 14:54 Pulse 65 05/12/18 14:54 Respiratory Rate 63 H 05/12/18 14:54 Blood Pressure 152/57 H 05/12/18 14:54 Pulse Oximetry 97 05/12/18 14:54 Temperature 97.9 F 05/12/18 14:54 Temperature Source Skin 05/12/18 14:54 Pulse 65 05/12/18 14:54 Respiratory Rate 63 H 05/12/18 14:54 Respiratory Effort 05/12/18 14:58 Blood Pressure 152/57 H 05/12/18 14:54 Blood Pressure Position Sitting 05/12/18 14:54 Pulse Oximetry 97 05/12/18 14:54 Oxygen Delivery Method Room Air 05/12/18 14:54 Oxygen Flow Rate 0 05/12/18 14:54 Pain Level 5 05/12/18 14:54
--- NOTE | 2018-05-12 15:23 | DI.RAD_ITS ---
SYMPTOM/DIAGNOSIS: LEFT KNEE PAIN, R/O EFFUSION LEFT KNEE: Edema of the calf is identified. There is a 1.2 x 1.2 x 0.6 cm medial right knee fluid collection. There is no evidence of DVT.
--- NOTE | 2018-05-12 15:53 | DI.US_ITS ---
SYMPTOM/DIAGNOSIS: LEFT CALF PAIN, R/O DVT LEFT LEG ULTRASOUND: The study was carried out according to the usual protocol. The superficial, femoral, popliteal and proximal trifurcation in the superior portion of the leg are well seen. Good compressibility is noted throughout. Flow is demonstrated and flow augmentation was easily elicited with calf compression. SUMMARY: There is no evidence of DVT. Note is made of a 1.3 x 1.2 x 0.6 cm fluid collection posterior to the medial left knee which likely represents a Moore's cyst. The study is otherwise unremarkable.
--- NOTE | 2018-05-12 16:51 | DI.VRAD_ITS ---
EXAM: US Left Duplex Lower Extremity Veins, Limited EXAM DATE/TIME: 05/12/2018 4:36 PM CLINICAL HISTORY: 62 years old, female; Pain; Leg, lower; Left TECHNIQUE: Real-time Duplex ultrasound of the Left Lower Extremity with 2-D pierre scale, color Doppler flow and spectral waveform analysis. Limited exam focused on the left lower extremity veins. COMPARISON: No relevant prior studies available. FINDINGS: Left deep veins: Unremarkable. The common femoral, femoral and popliteal veins are patent without thrombus. Normal compressibility, augmentation response and Doppler waveforms. Left superficial veins: Unremarkable. Saphenofemoral junction is patent without thrombus. Soft tissues: Edema in the calf Fluid collection in the posterior medial knee 1.2 x 1.2 x 0.6 cm IMPRESSION: No evidence of deep vein thrombosis. Fluid collection in the posterior medial knee 1.2 x 1.2 x 0.6 cm Dictated and Authenticated by: June Sanderson MD. Ordering:NANCY MENDEZ MD
--- NOTE | 2018-05-12 16:53 | DI.VRAD_ITS ---
EXAM: XR Left Knee, 3 Views EXAM DATE/TIME: 05/12/2018 3:25 PM CLINICAL HISTORY: 62 years old, female; Injury or trauma; Injury history: Lt knee pain; Initial encounter; Swelling (edema); Left TECHNIQUE: XR Left knee 3 views. COMPARISON: CR LEFT KNEE 3 VIEW COMPLETE 03/11/2017 11:38 AM FINDINGS: Bones/joints: Mild suprapatellar joint effusion. There is no evidence of acute fracture.There is no evidence of malalignment or dislocation. Joint space narrowing in the medial compartment and patellofemoral compartment consistent with degenerative changes Soft tissues: Soft tissue swelling of the knee IMPRESSION: Mild suprapatellar joint effusion. Dictated and Authenticated by: June Sanderson MD. Ordering:NANCY MENDEZ MD
[2018-05-12] MEDS: Acetaminophen 325 MG TAB 650 MG PO (17:58)
== END 2018-05-12 18:32 | disposition home or self-care (01) ==
PROVIDERS: Emergency Provider Physician Assistant; PCP Family Medicine
DX: M25.562 Pain in left knee (principal); M79.605 Pain in left leg; M17.12 Unilateral primary osteoarthritis, left knee; J44.9 Chronic obstructive pulmonary disease, unspecified; E11.9 Type 2 diabetes mellitus without complications; Z79.4 Long term (current) use of insulin
CPT/HCPCS: 73562; 99284; 93971; 99285

== ENCOUNTER 2018-06-12 13:05 | Outpatient (CLI) | payer OTHER, SELFPAY ==
[2018-06-12 14:30] LABS: Anion Gap 6.4 mmol/L (3-11); BUN 13 mg/dL (7-18); CO2 32.6 mmol/L (21.0-32.0); CREATININE 0.63 mg/dL (0.55-1.02); Calcium 9.6 mg/dL (8.5-10.1); Chloride 104 mmol/L (98-107); Glucose 64 mg/dL (70-100); Potassium 4.2 mmol/L (3.5-5.1); Sodium 143 mmol/L (136-145)
[2018-06-12 15:35] LABS: Hemoglobin A1C 7.8 % (4.5-6.2)
== END 2018-06-12 13:25 ==
PROVIDERS: PCP Family Medicine; Visit Provider Family Medicine
DX: E11.8 Type 2 diabetes mellitus with unspecified complications (principal); Z79.4 Long term (current) use of insulin
CPT/HCPCS: 36415; 80048; 83036

== ENCOUNTER 2018-07-05 14:00 | Emergency (ER) | payer OTHER, SELFPAY ==
[2018-07-05 14:04] VITALS: BP 138/64; PULSE 70; RESP 18; TEMP 36.4; O2SAT 95
--- NOTE | 2018-07-05 14:20 | DI.RAD_ITS ---
SYMPTOM/DIAGNOSIS: S/P DROPPED CAN ON FOOT, R/O ACUTE FX. RIGHT FOOT: Hardware is noted in the lateral malleolus. Heel spurs are seen. No fracture or dislocation is seen. IMPRESSION: No acute abnormality
--- NOTE | 2018-07-05 14:21 | W.ED.GENAD ---
Discharge Plan Disposition Patient Disposition: HOME Condition: Stable Discharge Details Chief Complaint: Orthopedic Clinical Impression: Traumatic hematoma of right foot Reason For Visit: right foot injury Primary Care Provider: Rocio Mo ED Provider: Judi Jeffries Home Meds and New Rx's Prescriptions: Continued fexofenadine 180 mg tablet 180 mg PO DAILY Qty: 30 RF: 6 buspirone 10 mg tablet 10 mg PO TID RF: 0 nabumetone 750 mg tablet 750 mg PO BID Qty: 60 RF: 2 montelukast 10 mg tablet 10 mg PO DAILY Qty: 90 RF: 4 ProAir HFA 90 mcg/actuation HFA aerosol inhaler 1 - 2 puff Inhalation QID PRN (Reason: bronchospasm) Qty: 3 RF: 4 Lantus Solostar U-100 Insulin 100 unit/mL (3 mL) insulin pen 34 unit subcut HS Qty: 3 RF: 6 Myrbetriq 25 mg tablet extended release 24 hr 25 mg PO DAILY Qty: 90 RF: 4 Jardiance 25 mg tablet 25 mg PO DAILY Qty: 90 RF: 4 pen needle, diabetic [BD Ultra-Fine Jhoana Pen Needle] 32 gauge x 5/32 needle 1 ea Miscellaneous DAILY Qty: 300 RF: 6 Humalog KwikPen Insulin 100 unit/mL insulin pen 1 - 20 unit subcut AC MDD 60 Qty: 3 RF: 6 OneTouch Verio strip 1 ea Miscellaneous 4-6 times/day Qty: 100 RF: 3 levothyroxine 50 mcg tablet 50 mcg PO DAILY Qty: 90 RF: 2 pravastatin 40 mg tablet 40 mg PO DAILY Qty: 90 RF: 4 trazodone 50 mg tablet 50 - 100 mg PO HS PRN (Reason: insomnia) Qty: 180 RF: 4 metformin 500 mg tablet 500 mg PO BID Qty: 180 RF: 4 lisinopril 20 mg tablet 20 mg PO DAILY Qty: 90 RF: 4 paroxetine HCl 10 mg tablet 10 mg PO HS Qty: 90 RF: 1 aspirin [Aspir-81] 81 MG tablet,delayed release (DR/EC) 81 mg PO HS RF: 0 albuterol sulfate 3 ML solution for nebulization 3 ml UPD Q6H PRN PRNQty: 30 RF: 0 Discharge Instructions Instructions: Foot Contusion (ED) Additional Instructions: Rest, ice, elevate right foot as much as possible. Alternate Tylenol and Motrin as needed and directed for pain. Follow-up with primary care doctor or orthopedics in 1 week for reevaluation as needed. Return to the emergency department any worsening or new concerning symptoms. Referrals: Wesly Wood MD [ [facility] STAFF PHYSICIAN] - Discharge Data Discharge Physician: Judi Jeffries Medical Decision Making 63-year-old female presents with right foot pain after dropped a can on her foot this morning at home. She has a mild to moderate hematoma on her right dorsal lateral midfoot. Ankle normal to inspection. No deformity. Neurovascularly intact. She declines any medication for pain. Will send for right foot x-ray. 1530 --negative for fracture. Juan Ramon wrap placed. Patient instructed on rest, ice, elevate and to alternate Tylenol and Motrin. She instructed follow-up primary care doctor return here with any concerns. Medical Records Medical records reviewed: Yes I reviewed the patient's medical records. Imaging Data Radiologic Study: Radiologist's impression: XR Right Foot Complete, 3 or more Views EXAM DATE/TIME: 07/05/2018 2:22 PM CLINICAL HISTORY: 63 years old, female; Pain; Foot; Right; Patient HX: Swelling over 5th metatarsal region, S/P dropping a can on foot TECHNIQUE: XR Right foot 3 or more views. COMPARISON: No relevant prior studies available. FINDINGS: Bones/joints: Status post ORIF distal fibula. Inferior calcaneal spur noted. Bony alignment is anatomic without evidence for fracture or dislocation. Soft tissues: Normal. IMPRESSION: No evidence for acute fracture. HPI General Mode of arrival: ambulatory. Date/Time Provider Initiated Documentation: 07/05/18 14:00. Limitations to Documentation: no limitations. Information obtained by: patient. HPI Narrative: Patient is a 63-year-old female presents with right foot pain after dropped a can of food on her foot this morning. She has not taken anything for pain. She denies any ankle pain Related Data Home Medications Medication Instructions Recorded Confirmed aspirin [Aspir-81] 81 mg PO HS 11/01/14 06/16/18 albuterol sulfate 3 ml UPD Q6H PRN PRN #30 vial 03/29/15 06/16/18 montelukast 10 mg tablet 10 mg PO DAILY #90 tab-cap 04/03/18 06/16/18 albuterol sulfate HFA 90 1 - 2 puff INHALATION QID PRN #3 04/04/18 06/16/18 mcg/actuation aerosol inhaler inhaler blood sugar diagnostic strips #100 strip 04/04/18 06/16/18 empagliflozin 25 mg tablet 25 mg PO DAILY #90 tab-cap 04/04/18 06/16/18 insulin glargine (U-100) 100 34 unit SUBCUT HS #3 box 04/04/18 06/16/18 unit/mL (3 mL) subcutaneous pen insulin lispro (U- 100) 100 1 - 20 unit SUBCUT AC #3 ml MDD 60 04/04/18 06/16/18 unit/mL subcutaneous pen levothyroxine 50 mcg tablet 50 mcg PO DAILY #90 tab-cap 04/04/18 06/16/18 mirabegron ER 25 mg 25 mg PO DAILY #90 tab-cap 04/04/18 06/16/18 tablet,extended release 24 hr pen needle, diabetic 32 gauge x #300 each 04/04/18 06/16/18 pravastatin 40 mg tablet 40 mg PO DAILY #90 tab-cap 04/04/18 06/16/18 trazodone 50 mg tablet 50 - 100 mg PO HS PRN #180 tab 04/04/18 06/16/18 lisinopril 20 mg tablet 20 mg PO DAILY #90 tab-cap 05/13/18 06/16/18 metformin 500 mg tablet 500 mg PO BID #180 tab-cap 05/13/18 06/16/18 buspirone 10 mg tablet 10 mg PO TID tab 06/11/18 06/16/18 nabumetone 750 mg tablet 750 mg PO BID #60 tab 06/11/18 06/16/18 paroxetine 10 mg tablet 10 mg PO HS #90 tab 06/13/18 06/16/18 fexofenadine 180 mg tablet 180 mg PO DAILY #30 tab 06/16/18 06/16/18 Previous Rx's Medication Instructions Recorded albuterol sulfate 3 ml UPD Q6H PRN PRN #30 vial 03/29/15 montelukast 10 mg tablet 10 mg PO DAILY #90 tab-cap 04/03/18 albuterol sulfate HFA 90 1 - 2 puff INHALATION QID PRN #3 04/04/18 mcg/actuation aerosol inhaler inhaler blood sugar diagnostic strips #100 strip 04/04/18 empagliflozin 25 mg tablet 25 mg PO DAILY #90 tab-cap 04/04/18 insulin glargine (U-100) 100 34 unit SUBCUT HS #3 box 04/04/18 unit/mL (3 mL) subcutaneous pen insulin lispro (U- 100) 100 1 - 20 unit SUBCUT AC #3 ml MDD 60 04/04/18 unit/mL subcutaneous pen levothyroxine 50 mcg tablet 50 mcg PO DAILY #90 tab-cap 04/04/18 mirabegron ER 25 mg 25 mg PO DAILY #90 tab-cap 04/04/18 tablet,extended release 24 hr pen needle, diabetic 32 gauge x #300 each 04/04/18 pravastatin 40 mg tablet 40 mg PO DAILY #90 tab-cap 04/04/18 trazodone 50 mg tablet 50 - 100 mg PO HS PRN #180 tab 04/04/18 lisinopril 20 mg tablet 20 mg PO DAILY #90 tab-cap 05/13/18 metformin 500 mg tablet 500 mg PO BID #180 tab-cap 05/13/18 nabumetone 750 mg tablet 750 mg PO BID #60 tab 06/11/18 paroxetine 10 mg tablet 10 mg PO HS #90 tab 06/13/18 fexofenadine 180 mg tablet 180 mg PO DAILY #30 tab 06/16/18 Allergies Allergy/AdvReac Type Severity Reaction Status Date / Time egg AdvReac Intermediate ABDOMINAL Unverified 07/05/18 14:08 PAIN influenza virus vaccine, AdvReac Unknown NAUSEA/VOMI Unverified 07/05/18 14:08 specific TING sulfamethoxazole AdvReac Unknown NAUSEA/VOMI Unverified 07/05/18 14:08 TING trimethoprim AdvReac Unknown Unverified 07/05/18 14:08 General Stated Complaint: Orthopedic LUZ: 4 Review of Systems Review of Systems All systems reviewed & are unremarkable except as noted in HPI and below PFSH Social History household members: other details: 2 current occupational status: disabled pets and animals: Yes pets and animals: cat(s) and dog(s) Smoking/Tobacco Use Status: Never second hand exposure: Yes alcohol intake: never substance use type: does not use hilario/protestant: OTHER special hilario needs: No Exam Const General: cooperative, healthy appearing and no acute distress HENMT Head: normal to inspection Mouth: oral mucosae normal Eyes General: appearance normal, both eyes and all related structures Neck Neck: normal visual inspection Resp Effort & Inspection: normal respiratory effort and able to speak in complete sentences Cardio Rate: regular rate Skin General skin exam: no rashes or lesions noted Neuro General: alert, awake and oriented x3 Motor: muscle tone normal throughout Extrem Right lower extremity: ankle Details: normal to inspection and normal ROM; no tenderness, no swelling, no unusual warmth and no ecchymosis and foot (No right fifth metatarsal tenderness.) Details: ecchymosis (A proximally 4 x 4 centimeter area of raised ecchymosis consistent with hematoma to the right mid lateral foot) and vascular exam Details: dorsalis pedis pulse present and posterior tibial pulse present Psych Appearance: grossly normal Affect: normal affect Course Vital Signs Temperature 97.5 F L 07/05/18 14:04 Pulse 70 07/05/18 14:04 Respiratory Rate 18 07/05/18 14:04 Blood Pressure 138/64 07/05/18 14:04 Pulse Oximetry 95 07/05/18 14:04 Temperature 97.5 F L 07/05/18 14:04 Temperature Source Tympanic 07/05/18 14:04 Pulse 70 07/05/18 14:04 Respiratory Rate 18 07/05/18 14:04 Respiratory Effort 07/05/18 14:11 Blood Pressure 138/64 07/05/18 14:04 Blood Pressure Position Sitting 07/05/18 14:04 Pulse Oximetry 95 07/05/18 14:04 Oxygen Delivery Method Room Air 07/05/18 14:04 Oxygen Flow Rate 0 07/05/18 14:04 Pain Level 4 07/05/18 14:04
--- NOTE | 2018-07-05 15:24 | DI.VRAD_ITS ---
EXAM: XR Right Foot Complete, 3 or more Views EXAM DATE/TIME: 07/05/2018 2:22 PM CLINICAL HISTORY: 63 years old, female; Pain; Foot; Right; Patient HX: Swelling over 5th metatarsal region, S/P dropping a can on foot TECHNIQUE: XR Right foot 3 or more views. COMPARISON: No relevant prior studies available. FINDINGS: Bones/joints: Status post ORIF distal fibula. Inferior calcaneal spur noted. Bony alignment is anatomic without evidence for fracture or dislocation. Soft tissues: Normal. IMPRESSION: No evidence for acute fracture. COMMENT: Preliminary interpretation is based on receipt of 3 image(s). A final report will be issued subsequently. Dictated and Authenticated by: Diana Yu MD. Ordering:NANCY Lau MD
[2018-07-05 15:56] VITALS: BP 138/64; PULSE 70; RESP 18; TEMP 37.4; O2SAT 95
== END 2018-07-05 15:56 | disposition home or self-care (01) ==
PROVIDERS: Emergency Provider Physician Assistant; PCP Family Medicine
DX: S90.31XA Contusion of right foot, initial encounter (principal); W20.8XXA Other cause of strike by thrown, projected or falling object, initial encounter; I10 Essential (primary) hypertension; J44.9 Chronic obstructive pulmonary disease, unspecified; E11.9 Type 2 diabetes mellitus without complications; Z79.4 Long term (current) use of insulin
CPT/HCPCS: 99283; 73630

== ENCOUNTER 2018-09-06 12:10 | Emergency (ER) | payer OTHER, SELFPAY ==
[2018-09-06 12:12] VITALS: BP 157/57; PULSE 68; RESP 16; TEMP 36.8; O2SAT 97
--- NOTE | 2018-09-06 12:40 | ED.GENADUL_ITS ---
Discharge Plan Disposition Patient Disposition: HOME Discharge Details Chief Complaint: Abd Prob Clinical Impression: Abdominal pain, right upper quadrant Primary Care Provider: Rocio Mo ED Provider: Luis Whalen Home Meds and New Rx's Prescriptions: Continued buspirone 10 mg tablet 10 mg PO TID RF: 0 nabumetone 750 mg tablet 750 mg PO BID Qty: 60 RF: 2 montelukast 10 mg tablet 10 mg PO DAILY Qty: 90 RF: 4 albuterol sulfate [ProAir HFA] 90 mcg/actuation HFA aerosol inhaler 1 - 2 puff Inhalation QID PRN (Reason: bronchospasm) Qty: 3 RF: 4 Lantus Solostar U-100 Insulin 100 unit/mL (3 mL) insulin pen 34 unit subcut HS Qty: 3 RF: 6 Myrbetriq 25 mg tablet extended release 24 hr 25 mg PO DAILY Qty: 90 RF: 4 Jardiance 25 mg tablet 25 mg PO DAILY Qty: 90 RF: 4 pen needle, diabetic [BD Ultra-Fine Jhoana Pen Needle] 32 gauge x 5/32 needle 1 ea Miscellaneous DAILY Qty: 300 RF: 6 Humalog KwikPen Insulin 100 unit/mL insulin pen 1 - 20 unit subcut AC MDD 60 Qty: 3 RF: 6 OneTouch Verio strip 1 ea Miscellaneous 4-6 times/day Qty: 100 RF: 3 levothyroxine 50 mcg tablet 50 mcg PO DAILY Qty: 90 RF: 2 pravastatin 40 mg tablet 40 mg PO DAILY Qty: 90 RF: 4 trazodone 50 mg tablet 50 - 100 mg PO HS PRN (Reason: insomnia) Qty: 180 RF: 4 metformin 500 mg tablet 500 mg PO BID Qty: 180 RF: 4 lisinopril 20 mg tablet 20 mg PO DAILY Qty: 90 RF: 4 paroxetine HCl 10 mg tablet 10 mg PO HS Qty: 90 RF: 1 levocetirizine 5 mg tablet 5 mg PO DAILY Qty: 30 RF: 6 aspirin [Aspir-81] 81 MG tablet,delayed release (DR/EC) 81 mg PO HS RF: 0 albuterol sulfate 3 ML solution for nebulization 3 ml UPD Q6H PRN PRNQty: 30 RF: 0 Discharge Instructions Instructions: Abdominal Pain (ED) Additional Instructions: Maintain a clear liquid diet tonight. Tomorrow morning he may advance her diet to a bland diet. Advance diet further as tolerated tomorrow night. Please follow-up with your primary care physician as scheduled next week. You may need additional diagnostic testing should symptoms persist. Return to the ER for any worsening or new concerning symptoms. Referrals: Rocio Mo MD [Primary Care Provider] - Discharge Data Discharge Date/Time-TO BE ENTERED AT DEPARTURE: 09/06/18 14:34 Medical Decision Making 12:30 -- A medical screening exam was performed. 63-year-old female with history of insulin dependent diabetes, fibromyalgia, status post remote cholecystectomy, here with right upper quadrant abdominal pain x 1wk. Tender in her right upper quadrant and lateral right upper abdomen. No peritoneal findings. No rash. Plan to check labs including LFTs and lipase. 14:25 --Labs reviewed and nondiagnostic. Repeat abdominal exam benign. Plan is to have the patient follow-up with her primary care physician as scheduled week week. I encouraged her to return should you have any worsening or new concerning symptoms. Disposition decision was made weighing the risks and benefits of hospitalization versus outpatient treatment, the risk for further decompensation, and the patient's wishes. The patient was stable and requested discharge. Prior to discharge, my usual and customary return precautions were reviewed with the patient - this included follow-up instructions and reason to return to the emergency department if condition worsens, does not improve as expected, or other new concerns arise. HPI General Mode of arrival: ambulatory . Date/Time Provider Initiated Documentation: 09/06/18 12:11 . Limitations to Documentation: no limitations . Information obtained by: patient . HPI Narrative: 63-year-old female with history of insulin dependent diabetes, status post remote cholecystectomy, fibromyalgia, here with chief complaint of abdominal pain. Patient notes that for the past week she has been experiencing constant right upper quadrant abdominal pain. Pain feels like a dull pressure. Pain is mild. No modifiers. She has had some intermittent associated nausea. No vomiting. No diarrhea. No bloody stool or black stool. She does note that shows been fairly hard and she feels somewhat constipated. No associated fever. No trauma. No rash. Related Data Home Medications Medication Instructions Recorded Confirmed aspirin [Aspir-81] 81 mg PO HS 11/01/14 09/10/18 albuterol sulfate 3 ml UPD Q6H PRN PRN #30 vial 03/29/15 09/10/18 montelukast 10 mg tablet 10 mg PO DAILY #90 tab-cap 04/03/18 09/10/18 albuterol sulfate HFA 90 1 - 2 puff INHALATION QID PRN #3 04/04/18 09/10/18 mcg/actuation aerosol inhaler inhaler blood sugar diagnostic strips #100 strip 04/04/18 09/10/18 empagliflozin 25 mg tablet 25 mg PO DAILY #90 tab-cap 04/04/18 09/10/18 insulin glargine (U-100) 100 34 unit SUBCUT HS #3 box 04/04/18 09/10/18 unit/mL (3 mL) subcutaneous pen insulin lispro (U- 100) 100 1 - 20 unit SUBCUT AC #3 ml MDD 60 04/04/18 09/10/18 unit/mL subcutaneous pen levothyroxine 50 mcg tablet 50 mcg PO DAILY #90 tab-cap 04/04/18 09/10/18 mirabegron ER 25 mg 25 mg PO DAILY #90 tab-cap 04/04/18 09/10/18 tablet,extended release 24 hr pen needle, diabetic 32 gauge x #300 each 04/04/18 09/10/18 532 pravastatin 40 mg tablet 40 mg PO DAILY #90 tab-cap 04/04/18 09/10/18 trazodone 50 mg tablet 50 - 100 mg PO HS PRN #180 tab 04/04/18 09/10/18 lisinopril 20 mg tablet 20 mg PO DAILY #90 tab-cap 05/13/18 09/10/18 metformin 500 mg tablet 500 mg PO BID #180 tab-cap 05/13/18 09/10/18 buspirone 10 mg tablet 10 mg PO TID tab 06/11/18 09/10/18 nabumetone 750 mg tablet 750 mg PO BID #60 tab 06/11/18 09/10/18 paroxetine 10 mg tablet 10 mg PO HS #90 tab 06/13/18 09/10/18 levocetirizine 5 mg tablet 5 mg PO DAILY #30 tab 07/10/18 09/10/18 Previous Rx's Medication Instructions Recorded albuterol sulfate 3 ml UPD Q6H PRN PRN #30 vial 03/29/15 montelukast 10 mg tablet 10 mg PO DAILY #90 tab-cap 04/03/18 albuterol sulfate HFA 90 1 - 2 puff INHALATION QID PRN #3 04/04/18 mcg/actuation aerosol inhaler inhaler blood sugar diagnostic strips #100 strip 04/04/18 empagliflozin 25 mg tablet 25 mg PO DAILY #90 tab-cap 04/04/18 insulin glargine (U-100) 100 34 unit SUBCUT HS #3 box 04/04/18 unit/mL (3 mL) subcutaneous pen insulin lispro (U- 100) 100 1 - 20 unit SUBCUT AC #3 ml MDD 60 04/04/18 unit/mL subcutaneous pen levothyroxine 50 mcg tablet 50 mcg PO DAILY #90 tab-cap 04/04/18 mirabegron ER 25 mg 25 mg PO DAILY #90 tab-cap 04/04/18 tablet,extended release 24 hr pen needle, diabetic 32 gauge x #300 each 04/04/18 pravastatin 40 mg tablet 40 mg PO DAILY #90 tab-cap 04/04/18 trazodone 50 mg tablet 50 - 100 mg PO HS PRN #180 tab 04/04/18 lisinopril 20 mg tablet 20 mg PO DAILY #90 tab-cap 05/13/18 metformin 500 mg tablet 500 mg PO BID #180 tab-cap 05/13/18 nabumetone 750 mg tablet 750 mg PO BID #60 tab 06/11/18 paroxetine 10 mg tablet 10 mg PO HS #90 tab 06/13/18 levocetirizine 5 mg tablet 5 mg PO DAILY #30 tab 07/10/18 Allergies Allergy/AdvReac Type Severity Reaction Status Date / Time egg AdvReac Intermediate ABDOMINAL Unverified 09/10/18 16:32 PAIN influenza virus vaccine, AdvReac Unknown NAUSEA/VOMI Unverified 09/10/18 16:32 specific TING sulfamethoxazole AdvReac Unknown NAUSEA/VOMI Unverified 09/10/18 16:32 TING trimethoprim AdvReac Unknown Unverified 09/10/18 16:32 General Stated Complaint: Abd Prob LUZ: 4 Review of Systems Review of Systems All systems reviewed & are unremarkable except as noted in HPI and below PFSH Medical History COPD (chronic obstructive pulmonary disease) Cardiac murmur Depressive disorder Fibromyalgia Hyperlipidemia Mixed stress and urge urinary incontinence Non-proliferative diabetic retinopathy Type 2 diabetes mellitus Uterine prolapse Surgical History Breast, Lumpectomy Cholecystectomy Fracture, Open Treatment (08/08/10) MOLE REMOVAL Open Carpal Tunnel release (~1999) Tonsillectomy Family History Mother Essential hypertension COPD (chronic obstructive pulmonary disease) Depression Heart disease Neoplasm Father Hodgkins disease Sister Essential hypertension Sister Diabetes Essential hypertension COPD (chronic obstructive pulmonary disease) Neoplasm Asthma Grandfather No problems noted. Grandfather Personal history of malignant neoplasm Grandmother No problems noted. Grandmother Essential hypertension Sister Substance abuse Alcohol abuse Son No problems noted. Son Asthma Social History Smoking/Tobacco Use Status: Never Second Hand Exposure: Yes Alcohol Intake: never Drug use: Never Substance use type: does not use Household members: other Details: 2 Pets and animals: Yes Pets and animals: cat(s) and dog(s) What type of physical activity do you participate in: none Isabelle/Religious: OTHER Special isabelle needs: No Do you feel safe at home: Yes Do you feel safe in your relationship?: Yes Exam Const General: cooperative and no acute distress HENMT Head: normocephalic Mouth: moist mucous membranes Eyes Conjunctivae: normal conjunctivae Sclera: normal sclerae Neck Neck: trachea midline and supple Resp Auscultation: clear to auscultation bilaterally, no rales, no rhonchi and no wheezes Cardio Jugular venous pressure: no JVD Rate: regular rate and not tachycardic Rhythm: regular rhythm GI Inspection: no abdominal wall ecchymosis Palpation: soft, no hepatosplenomegaly, not firm, no guarding, no masses, not rigid and tender in the RUQ; Crocker's sign negative Auscultation: normal bowel sounds Back/Spine/Pelvis Back: no CVA tenderness Skin General skin exam: no rashes or lesions noted Neuro General: alert, awake and tone normal Extrem General: no edema Psych Appearance: grossly normal Course Vital Signs Temperature 36.8 C 09/06/18 12:12 Pulse 68 09/06/18 12:12 Respiratory Rate 16 09/06/18 12:12 Blood Pressure 157/57 H 09/06/18 12:12 Pulse Oximetry 97 09/06/18 12:12 Temperature 36.8 C 09/06/18 12:12 Temperature Source Temporal Artery Scan 09/06/18 12:12 Pulse 68 09/06/18 12:12 Respiratory Rate 16 09/06/18 12:12 Respiratory Effort 09/06/18 12:12 Blood Pressure 157/57 H 09/06/18 12:12 Blood Pressure Position Sitting 09/06/18 12:12 Pulse Oximetry 97 09/06/18 12:12 Oxygen Delivery Method Room Air 09/06/18 12:12 Oxygen Flow Rate 0 09/06/18 12:12 Pain Level 2 09/06/18 12:12
[2018-09-06 12:41] LABS: Abs Immature Grans 0.01 k/cumm (0.0-0.09); Absolute Basophil Count 0.09 k/cumm (0.0-0.2); Absolute Eosinophil Count 0.26 k/cumm (0.0-0.7); Absolute Monocyte Count 0.53 k/cumm (0.11-0.7); Basophils % 1.5; Eosinophils % 4.2; HCT 41.4 % (36.0-46.0); Immature Grans % 0.2; Lymphocytes % 30.7; Mean Corp. HGB Concentration 33.8 g/dL (32.0-36.0); Mean Corpuscular Hemoglobin 30.2 pg (27.0-33.0); Mean Corpuscular Volume 89.2 fL (80-95); Mean Platelet Volume 10.4 fL (8.0-11.0); Monocytes % 8.6; Neutrophils % 54.8; Platelet Count 264 x1000/uL (130-400); RBC 4.64 m/cumm (4.00-5.20); RBC Distribution Width 13.4 % (11.7-14.6); White Blood Cell Count 6.19 k/cumm (4.4-10.8)
[2018-09-06 12:51] LABS: Lipase 137 U/L (73-393)
[2018-09-06 12:54] LABS: ALT 21 U/L (12-78); AST 13 U/L (15-37); Albumin 3.8 g/dL (3.4-5.0); Alkaline Phosphatase 85 U/L (46-116); Anion Gap 6.8 mmol/L (3-11); BUN 19 mg/dL (7-18); Bilirubin, Total 0.9 mg/dL (0.2-1.0); CO2 30.2 mmol/L (21.0-32.0); CREATININE 0.77 mg/dL (0.55-1.02); Calcium 9.1 mg/dL (8.5-10.1); Chloride 101 mmol/L (98-107); Glucose 123 mg/dL (70-100); Potassium 4.4 mmol/L (3.5-5.1); Sodium 138 mmol/L (136-145); Total Protein 7.1 g/dL (6.4-8.2)
[2018-09-06 13:47] LABS: Bilirubin Negative (Negative); Blood Negative (Negative); Clarity Clear; Glucose 500 mg/dL (Negative); Ketones Negative (Negative); Leukocyte Esterase Negative (Negative); Nitrite Negative (Negative); Urobilinogen 0.2 EU/dL (Up TO 0.2); pH 5.5 (5-8)
== END 2018-09-06 14:34 | disposition home or self-care (01) ==
PROVIDERS: Emergency Provider Student in an Organized Health Care Education/Training Program; PCP Family Medicine
DX: R10.11 Right upper quadrant pain (principal); J44.9 Chronic obstructive pulmonary disease, unspecified; E11.39 Type 2 diabetes mellitus with other diabetic ophthalmic complication; Z79.4 Long term (current) use of insulin; Z90.49 Acquired absence of other specified parts of digestive tract
CPT/HCPCS: 36415; 80053; 83690; 99283; 81003; 85025

== ENCOUNTER 2018-10-27 14:01 | Outpatient (CLI) | payer OTHER, SELFPAY ==
[2018-10-27 14:50] LABS: Abs Immature Grans 0.02 k/cumm (0.0-0.09); Absolute Basophil Count 0.02 k/cumm (0.0-0.2); Absolute Lymphocyte Count 0.94 k/cumm (1.2-3.4); Absolute Monocyte Count 0.28 k/cumm (0.11-0.7); Absolute Neutrophil Count 5.53 k/cumm (1.2-6.7); Basophils % 0.3; HGB 12.9 g/dL (12.0-15.5); Immature Grans % 0.3; Lymphocytes % 13.8; Mean Corp. HGB Concentration 32.3 g/dL (32.0-36.0); Mean Corpuscular Hemoglobin 29.2 pg (27.0-33.0); Mean Corpuscular Volume 90.5 fL (80-95); Mean Platelet Volume 10.7 fL (8.0-11.0); Monocytes % 4.1; Neutrophils % 81.5; Platelet Count 282 x1000/uL (130-400); RBC 4.42 m/cumm (4.00-5.20); RBC Distribution Width 13.5 % (11.7-14.6); White Blood Cell Count 6.79 k/cumm (4.4-10.8)
[2018-10-27 15:02] LABS: Hemoglobin A1C 8.3 % (4.5-6.2)
[2018-10-27 15:53] LABS: ALT 24 U/L (12-78); AST 9 U/L (15-37); Albumin 3.7 g/dL (3.4-5.0); Alkaline Phosphatase 97 U/L (46-116); Anion Gap 8.8 mmol/L (3-11); BUN 31 mg/dL (7-18); Bilirubin, Total 0.6 mg/dL (0.2-1.0); CO2 29.2 mmol/L (21.0-32.0); CREATININE 1.18 mg/dL (0.55-1.02); Calcium 9.5 mg/dL (8.5-10.1); Chloride 98 mmol/L (98-107); Estimated GFR 46.11 (mL/min/1.73m2); Glucose 391 mg/dL (70-100); Potassium 4.6 mmol/L (3.5-5.1); Sodium 136 mmol/L (136-145); TSH 0.47 uIU/mL (0.358-3.74); Total Protein 6.8 g/dL (6.4-8.2)
== END 2018-10-27 14:21 ==
PROVIDERS: PCP Family Medicine; Visit Provider Family Medicine
DX: R53.83 Other fatigue (principal); E11.9 Type 2 diabetes mellitus without complications
CPT/HCPCS: 36415; 80053; 83036; 84443; 85025

== ENCOUNTER 2019-02-17 14:13 | Outpatient (CLI) | payer OTHER, SELFPAY ==
[2019-02-17 19:35] LABS: Hemoglobin A1C 8.1 % (4.5-6.2)
== END 2019-02-17 14:33 ==
PROVIDERS: PCP Family Medicine; Visit Provider Family Medicine
DX: E11.39 Type 2 diabetes mellitus with other diabetic ophthalmic complication (principal); E11.65 Type 2 diabetes mellitus with hyperglycemia
CPT/HCPCS: 36415; 83036

== ENCOUNTER 2019-02-26 13:11 | Outpatient (CLI) | payer OTHER, SELFPAY ==
[2019-02-26] MEDS: Inhaler, Assist Device 1 EACH MC (14:11)
[2019-02-26] MEDS: Albuterol HFA 18 GM 200 PUFF INH IH (14:12)
--- NOTE | 2019-03-02 10:44 | PFT_ITS ---
PULMONARY FUNCTION TEST REPORT DATE OF SERVICE: February 26, 2019 REQUESTING PROVIDER: Rocio Mo M.D. Spirometry shows no evidence of obstructive airways disease. There is significant bronchodilator response. Pre-bronchodilator spirometry was slightly suboptimal effort. Lung volumes show no evidence of restriction. Diffusion capacity normal. Airways resistance normal. IMPRESSION: Overall normal pulmonary function study. The significant bronchodilator response is likely representing a much better patient effort for the post-bronchodilator spirometry. Clinical correlation recommended. For comparison purposes this study was compared to previous ones from 01/31/09 and 02/22/09, the patient has an overall 490 cc's improvement in FVC and from 01/31/09 and a slight 90 cc's improvement since 02/22/09. FEV1 has had an overall improvement of 460 cc's and from 02/22/09 there has been a 230 cc's improvement. Clinical correlation recommended. GRECIA/mindi D/
== END 2019-02-26 13:31 ==
PROVIDERS: PCP Family Medicine; Visit Provider Family Medicine
DX: J44.9 Chronic obstructive pulmonary disease, unspecified (principal); R06.09 Other forms of dyspnea; R05 Cough
CPT/HCPCS: 94060; 94150; 94726; 94729

== ENCOUNTER → 2019-03-06 13:41 | Outpatient (BNVA) | payer OTHER, SELFPAY | PROVIDERS: PCP Family Medicine; Referring Provider Family Medicine; Visit Provider Surgery | DX: R10.30 Lower abdominal pain, unspecified (principal); E11.9 Type 2 diabetes mellitus without complications; Z79.4 Long term (current) use of insulin; J44.9 Chronic obstructive pulmonary disease, unspecified | CPT/HCPCS: 99202; 99214 ==

== ENCOUNTER 2019-04-22 14:27 | Outpatient (CLI) | payer OTHER, SELFPAY ==
--- NOTE | 2019-04-22 14:30 | DI.RAD_ITS ---
EXAM: XR HIP AND PELVIS ADULT BL INDICATION: hip and back pain, m25.559.m54.9. COMPARISON: No exams were available for comparison TECHNIQUE: 2D digital imaging was performed. FINDINGS: The hip joints are well maintained. The bones are normally mineralized. No acute fracture or disloc ation is present. Mild degenerative changes are seen in the right sacroiliac joint. The left sacroi liac joint and symphysis pubis are unremarkable. The soft tissues are unremarkable.
--- NOTE | 2019-04-22 14:30 | DI.RAD_ITS ---
EXAM: XR KNEE RT 3V AP,LAT,ANDREW INDICATION: KNEE AND HIP PAIN,. COMPARISON: No exams were available for comparison TECHNIQUE: 2D digital imaging was performed. FINDINGS: No bone, joint, or soft tissue abnormalities identified. IMPRESSION: Unremarkable examination.
== END 2019-04-22 14:47 ==
PROVIDERS: PCP Family Medicine; Visit Provider Internal Medicine
DX: M25.559 Pain in unspecified hip (principal); M54.5 Low back pain; M53.3 Sacrococcygeal disorders, not elsewhere classified; M25.561 Pain in right knee
CPT/HCPCS: 73521; 73562

== ENCOUNTER → 2019-05-19 14:27 | Outpatient (BNVA) | payer OTHER, SELFPAY | PROVIDERS: PCP Family Medicine; Referring Provider Family Medicine; Visit Provider Student in an Organized Health Care Education/Training Program | DX: M70.62 Trochanteric bursitis, left hip (principal); M70.61 Trochanteric bursitis, right hip; E11.8 Type 2 diabetes mellitus with unspecified complications; Z79.4 Long term (current) use of insulin | CPT/HCPCS: 99203; 99214 ==

== ENCOUNTER 2019-07-01 15:16 | Outpatient (REF) | payer OTHER, SELFPAY ==
--- NOTE | 2019-07-01 14:20 | PAPFT_PTH ---
PATIENT: Preeti Garner LOC: [facility] U#:[id number] AGE/SX: 63/F ROOM: RE07/01/[address]: Rocio Mo MD : 1955 BED: DIS: 07/01/2019 SPEC #: [id number] RECD: 07/02/19 12:27 STATUS: DUC RESyd #: [id number] ÁNGEL: 07/01/19 14:[address]: Rocio Mo DEPT: [facility], [facility] Cytology RECD BY: Renetta Giang Tissues: 1 - CX/ENDOCX FOR PAP SMEARS Procedures: PAP THIN PREP/UVM Screening HPV DNA PROBE Comments: [id number]
== END 2019-07-01 15:36 ==
LOC: LBN 15:16
PROVIDERS: PCP Family Medicine; Visit Provider Family Medicine
DX: Z12.4 Encounter for screening for malignant neoplasm of cervix (principal)
CPT/HCPCS: 88142; 87624

== ENCOUNTER 2019-09-01 00:43 | Outpatient (CLI) | payer OTHER, SELFPAY ==
--- NOTE | 2019-09-01 15:20 | DI.MAMMO_ITS ---
EXAM: MAMMO SCREENING CLINICAL HISTORY: screening, Z12.39 TECHNIQUE: Mammograms were interpreted according to the usual protocol including computer analysis w [employer] CAD system, tomosynthesis and C-view imaging. COMPARISON: 2011 through 2016 FINDINGS: The breasts are composed of scattered fibroglandular densities, Breast Density category B. No suspicious masses or suspicious microcalcifications are seen. No skin thickening or abnormal axillary lymph nodes are seen. There has been no significant change from prior exams. IMPRESSION: BI-RADS Category 1 - Negative. Yearly screening mammography is recommended. Breast Density - Category B - Scattered areas of fibroglandular density
== END 2019-09-01 01:03 ==
PROVIDERS: PCP Family Medicine; Visit Provider Family Medicine
DX: Z12.31 Encounter for screening mammogram for malignant neoplasm of breast (principal)
CPT/HCPCS: 77063; 77067

== ENCOUNTER 2020-02-24 05:16 | Outpatient (CLI) | payer OTHER, MEDICAID, SELFPAY ==
[2020-02-24 12:40] LABS: Hemoglobin A1C 8.2 % (<5.7)
[2020-02-24 12:46] LABS: Anion Gap 6.8 mmol/L (3-11); BUN 19 mg/dL (7-18); CO2 30.2 mmol/L (21.0-32.0); CREATININE 0.74 mg/dL (0.55-1.02); Calcium 9.3 mg/dL (8.5-10.1); Calculated LDL 127 mg/dL (<100); Chloride 106 mmol/L (98-107); Cholesterol 213 mg/dL (<200); Glucose 206 mg/dL (74-106); HDL Cholesterol 67 mg/dL (40-60); Potassium 4.6 mmol/L (3.5-5.1); Sodium 143 mmol/L (136-145); TSH 1.29 uIU/mL (0.36-3.74); Triglyceride 96 mg/dL (<150)
[2020-02-24 12:51] LABS: COMMENT (LAB VIEW ONLY) 44.96 mg/dL; Microalb ug/mg Crea 25.1 ug/mg Cr
== END 2020-02-24 05:36 ==
PROVIDERS: PCP Family Medicine; Visit Provider Family Medicine
DX: E11.9 Type 2 diabetes mellitus without complications (principal); E03.9 Hypothyroidism, unspecified
CPT/HCPCS: 36415; 80048; 80061; 82043; 82570; 83036; 84443

== ENCOUNTER 2020-06-10 03:39 | Outpatient (CLI) | payer OTHER, MEDICAID, SELFPAY ==
[2020-06-10 14:52] LABS: Hemoglobin A1C 7.7 % (<5.7)
[2020-06-10 15:46] LABS: ALT 18 U/L (14-59); AST 9 U/L (15-37); Albumin 3.8 g/dL (3.4-5.0); Alkaline Phosphatase 89 U/L (46-116); Anion Gap 6.5 mmol/L (3-11); BUN 25 mg/dL (7-18); Bilirubin, Total 0.6 mg/dL (0.2-1.0); CO2 31.5 mmol/L (21.0-32.0); CREATININE 0.95 mg/dL (0.55-1.02); Calcium 9.4 mg/dL (8.5-10.1); Calculated LDL 88 mg/dL (<100); Chloride 102 mmol/L (98-107); Cholesterol 171 mg/dL (<200); Estimated GFR 59.04 (mL/min/1.73m2); Glucose 229 mg/dL (74-106); HDL Cholesterol 65 mg/dL (40-60); Potassium 4.5 mmol/L (3.5-5.1); Sodium 140 mmol/L (136-145); Total Protein 7.1 g/dL (6.4-8.2); Triglyceride 94 mg/dL (<150)
[2020-06-10 16:22] LABS: Ferritin 103 ng/mL (8-252)
== END 2020-06-10 03:59 ==
PROVIDERS: PCP Family Medicine; Visit Provider Nurse Practitioner
DX: E11.9 Type 2 diabetes mellitus without complications (principal); R79.89 Other specified abnormal findings of blood chemistry
CPT/HCPCS: 36415; 80053; 80061; 82728; 83036

== ENCOUNTER 2020-06-29 04:24 | Outpatient (CLI) | payer MEDICARE, MEDICAID, SELFPAY ==
[2020-06-29 12:36] LABS: Abs Immature Grans 0.02 10^3/uL (0.0-0.06); Absolute Basophil Count 0.08 10^3/uL (0.0-0.2); Absolute Eosinophil Count 0.11 10^3/uL (0.0-0.7); Absolute Lymphocyte Count 1.78 10^3/uL (1.2-3.4); Absolute Monocyte Count 0.37 10^3/uL (0.1-0.8); Absolute Neutrophil Count 4.22 10^3/uL (1.2-6.7); Basophils % 1.2; Eosinophils % 1.7; HCT 42.7 % (36.0-46.0); Immature Grans % 0.3; Lymphocytes % 27.1; MCH 29.9 pg (27.0-33.0); MCHC 32.8 % (32.0-36.0); MPV 10.6 fL (8.0-11.0); Monocytes % 5.6; Neutrophils % 64.1; Nucleated RBC 0 %; Platelet Count 251 10^3/uL (130-400); RBC 4.69 10^6/uL (3.93-5.22); RDW 12.3 % (11.7-14.6); RDW-SD 40.8 fL; WBC 6.58 10^3/uL (4.4-10.8)
[2020-06-29 13:16] LABS: ESR 10 mm/hr (0-30)
[2020-06-29 13:33] LABS: C-Reactive Protein 0.37 mg/dL (0.0-0.3); Uric Acid 3.6 mg/dL (2.6-6.0)
[2020-06-29 21:22] LABS: Rheumatoid Factor <8.6 IU/mL (<12.0)
[2020-06-30 10:46] LABS: Lyme Ab w Rflx to Lyme Confirm Negative (Negative)
== END 2020-06-29 04:44 ==
PROVIDERS: PCP Family Medicine; Visit Provider Family Medicine
DX: M25.59 Pain in other specified joint (principal)
CPT/HCPCS: 36415; 85652; 84550; 85025; 86140; 86431; 86618

== ENCOUNTER 2020-09-21 01:22 | Outpatient (CLI) | payer MEDICARE, MEDICAID, SELFPAY ==
--- NOTE | 2020-09-21 07:45 | DI.RAD_ITS ---
EXAM: XR KNEE LT 3V AP,LAT,ANDREW CLINICAL HISTORY: left knee pain/fall on knee 10 weeks,M25.562. TECHNIQUE: 2D digital imaging was performed. COMPARISON: CR XR knee LT 4V AP,lat,andrew,pat from 05/12/2018 FINDINGS: There is no evidence of fracture nor joint. No obvious degenerative changes. No osseous lesions. B one density is age-appropriate. IMPRESSION: DATA REPOSITORY: RADIATION DOSE DELIVERED:
== END 2020-09-21 01:42 ==
PROVIDERS: PCP Family Medicine; Visit Provider Family Medicine
DX: M25.562 Pain in left knee (principal)
CPT/HCPCS: 73562

== ENCOUNTER 2020-11-08 03:42 | Outpatient (CLI) | payer MEDICARE, MEDICAID, SELFPAY ==
--- NOTE | 2020-11-08 14:00 | NS.NUTBLAN_ITS ---
ASSESSMENT: Preeti ( 65 F) presents with referral for diagnostic CGM placement and education.No recent labs available, documentation reveals [id number]/dl on 06/12/20 and A1c7.7% on 06/10/20. She reports FBG today was 158mg/dl. Random fingerstick ~ 3.5 hrs postprandial at this encounter was 285mg/dl. Her diet recall for today was coffee x2 with cream at breakfast, Noodles, cheeses sauce, 2 slices garlic toast and broccoli with peppers and onions at 10:30 am. She stated that she plans on ham, mashed potatoes and green beans for supper tonight. She reports coffee and water are her usual beverage choices with2 -3 light beers/day on weekends.When CHO counting was discussed she was able to adequately explain and demonstrate the concept. She uses 35 units Lantus HS and Humalog on a sliding scale with a 1:15 insulin :CHO ratio. She reports taking 6 units immediately after meal this am to cover the carbs. She is also on 25 mg Jardiance qd. Preeti reports using fingersticks 1x/day for FBG. She stated that she has had very few episodes hypoglycemia and that they were all in the high 60's.. She reports that she had GI issues with metformin and does not use that medication at this time. Her weight is 224lbs ( 203% IBW) indicating obesity and she stated that she had desirable weight loss this year and is interested in losing more weight. She stated that she was able to achieve this weight loss with support from Toi Hernandez PharmD. Nutrition Dx: Hyperglycemia r/t DMT2 AEB: Bg 285 mg/dl, on insulin and Jardiance. INTERVENTION: As noted above Preeti is adept at CHO counting which we reviewed. She is adept at the process and understands the concept but her BG levels indicate CGM to be a good option to help with TIR. We reviewed TIR ( 70-180 mg/dl ) and the hours per day and %age of time recommended per day to avoid DM complications. Explained interstitial fluid glucose readings Vs. BG readings and lag time. Educated patient on alrms and set hers for 70-220 mg/dl based on recent BG reading at this encounter. Assisted and educated Preeti in setting up Satm[employer] account to share data. Helped patient place sensor and educated her on reader operation. Provided Tegaderm clear over bandages to help with sensor adherence. Reviewed benefit of 7% weight loss and continued work with Toi to lower A1c level. 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 MONITOR/EVAL: Preeti will return to this office in 14 days for f/u appointment to download and print AGP and other reports on [facility] to identify areas of potential glucose variability and solution based action plans using diet and medication for optimum TIR ( >70%). She has been notified by her provider that she qualifies for a Dexcom -6 with her current insurance and we will place that device at next encounter if she obtains it and brings that along with her.we will review data for the 14 day free style marvin and submit template to her provider for analysis. Time spent face to face : 1 hour/ 4 units
== END 2020-11-08 03:43 | disposition home or self-care (01) ==
LOC: DS 03:43
PROVIDERS: PCP Family Medicine; Visit Provider Dietitian, Registered
DX: E11.65 Type 2 diabetes mellitus with hyperglycemia (principal); Z79.4 Long term (current) use of insulin; Z71.3 Dietary counseling and surveillance
CPT/HCPCS: 97802

== ENCOUNTER 2021-03-22 03:30 | Outpatient (CLI) | payer MEDICARE, MEDICAID, SELFPAY ==
[2021-03-22 15:06] LABS: Abs Immature Grans 0.01 10^3/uL (0.0-0.06); Absolute Basophil Count 0.09 10^3/uL (0.0-0.2); Absolute Eosinophil Count 0.15 10^3/uL (0.0-0.7); Absolute Lymphocyte Count 1.54 10^3/uL (1.2-3.4); Absolute Monocyte Count 0.36 10^3/uL (0.1-0.8); Absolute Neutrophil Count 3.54 10^3/uL (1.2-6.7); Basophils % 1.6; Eosinophils % 2.6; HCT 41.3 % (36.0-46.0); HGB 13.2 g/dL (11.2-15.7); Immature Grans % 0.2; Lymphocytes % 27.1; MCH 29.9 pg (27.0-33.0); MCV 93.7 fL (80-95); MPV 10.5 fL (8.0-11.0); Monocytes % 6.3; Neutrophils % 62.2; Nucleated RBC 0 %; Platelet Count 253 10^3/uL (130-400); RBC 4.41 10^6/uL (3.93-5.22); RDW 12.9 % (11.7-14.6); RDW-SD 44.3 fL; WBC 5.69 10^3/uL (4.4-10.8)
[2021-03-22 16:14] LABS: Hemoglobin A1C 8.8 % (<5.7)
[2021-03-22 16:31] LABS: ALT 23 U/L (14-59); AST 10 U/L (15-37); Albumin 3.6 g/dL (3.4-5.0); Alkaline Phosphatase 93 U/L (46-116); BUN 21 mg/dL (7-18); Bilirubin, Total 0.6 mg/dL (0.2-1.0); Calcium 9.3 mg/dL (8.5-10.1); Chloride 105 mmol/L (98-107); Estimated GFR 55.47 (mL/min/1.73m2); Ferritin 89 ng/mL (8-252); Glucose 252 mg/dL (74-106); Potassium 4.5 mmol/L (3.5-5.1); Sodium 143 mmol/L (136-145); Total Protein 6.7 g/dL (6.4-8.2)
== END 2021-03-22 03:31 | disposition home or self-care (01) ==
LOC: LBO 03:30
PROVIDERS: PCP Family Medicine; Visit Provider Family Medicine
DX: E11.9 Type 2 diabetes mellitus without complications; G25.81 Restless legs syndrome
CPT/HCPCS: 36415; 80053; 82728; 83036; 85025

== ENCOUNTER 2021-06-30 00:19 | Outpatient (CLI) | payer MEDICARE, MEDICAID, SELFPAY ==
--- NOTE | 2021-06-30 11:39 | DI.MAMMO_ITS ---
Exam(s) MAMMO SCREENING EXAM: MAMMO SCREENING CLINICAL HISTORY: screening,Z12.39 TECHNIQUE: Bilateral full field digital CC and MLO mammographic images were obtained with 3D tomosyn thesis and utilizing computer aided detection (CAD). COMPARISON: Available for comparison. FINDINGS: Masses/Architectural Distortion: None seen. Microcalcifications: No suspicious pleomorphic-type are seen. Skin Thickening/Nipple Retraction: None. IMPRESSION: 1. No significant interval change with no specific features of malignancy noted. 2. Unless there is more urgent need, screening mammography is recommended, as per [employer] guidelines. BI-RADS Category 1 - Negative Breast Density - Category B - Scattered areas of fibroglandular density Breast density category C or D implies that the patient has dense breast tissue. Dense breast tissue is very common and is not abnormal but dense breast tissue can make it harder to find cancer on a ma mmogram. Also, dense breast tissue may increase their breast cancer risk. This information about the result of the mammogram report was provided to the patient to raise their awareness. Use this report when you speak with the patient about their risks for breast cancer, which includes their family hist ory. At that time, you may recommend for more screening tests (Ultrasound or MRI) as they might be us eful based on their risk. A negative radiographic report should not delay biopsy if a dominant or clinically suspicious mass is present. Up to ten percent of cancers are not identified on mammography. A negative report may reinforce clinical impression. Adenosis and dense breasts may obscure an underlying neoplasm. False positive reports average 6 to 10%. Patient will receive a letter notifying them of these results.
== END 2021-06-30 00:39 ==
PROVIDERS: PCP Family Medicine; Visit Provider Family Medicine
DX: Z12.31 Encounter for screening mammogram for malignant neoplasm of breast (principal)
CPT/HCPCS: 77063; 77067

== ENCOUNTER 2021-07-21 14:09 | Outpatient (REF) | payer MEDICARE, MEDICAID, SELFPAY ==
[2021-07-23 13:39] LABS: COVID-19 RT-PCR UVMMC Result Positive (Negative)
== END 2021-07-21 14:10 | disposition home or self-care (01) ==
LOC: LBN 14:09
PROVIDERS: PCP Family Medicine; Visit Provider Family Medicine
DX: R52 Pain, unspecified (principal); Z20.822 Contact with and (suspected) exposure to COVID-19
CPT/HCPCS: U0003

== ENCOUNTER 2021-09-06 02:35 | Outpatient (CLI) | payer MEDICARE, MEDICAID, SELFPAY ==
[2021-09-06 16:59] LABS: Hemoglobin A1C 7.8 % (<5.7)
[2021-09-06 17:17] LABS: ALT 18 U/L (14-59); AST 8 U/L (15-37); Albumin 3.5 g/dL (3.4-5.0); Alkaline Phosphatase 96 U/L (46-116); Anion Gap 5.8 mmol/L (3-11); BUN 16 mg/dL (7-18); Bilirubin, Total 0.7 mg/dL (0.2-1.0); CO2 31.2 mmol/L (21.0-32.0); CREATININE 0.7 mg/dL (0.55-1.02); Calcium 9.1 mg/dL (8.5-10.1); Calculated LDL 47 mg/dL (<100); Chloride 103 mmol/L (98-107); Cholesterol 138 mg/dL (<200); Glucose 227 mg/dL (74-106); HDL Cholesterol 72 mg/dL (40-60); Potassium 4.2 mmol/L (3.5-5.1); Sodium 140 mmol/L (136-145); TSH (W/Ref FT4) 3.04 uIU/mL (0.36-3.74); Total Protein 6.7 g/dL (6.4-8.2); Triglyceride 98 mg/dL (<150)
[2021-09-06 18:15] LABS: COMMENT (LAB VIEW ONLY) 94.89 mg/dL; Microalb ug/mg Crea 50.9 ug/mg Cr
[2021-09-08 09:14] LABS: Hepatitis C Ab w Rflx HCV PCR Negative (Negative)
[2021-09-08 09:23] LABS: HIV-1/2 Ag & Ab Screen Negative (Negative)
== END 2021-09-06 02:36 | disposition home or self-care (01) ==
PROVIDERS: PCP Family Medicine; Visit Provider Family Medicine
DX: I10 Essential (primary) hypertension (principal); E03.9 Hypothyroidism, unspecified; Z11.59 Encounter for screening for other viral diseases; Z79.4 Long term (current) use of insulin; E11.65 Type 2 diabetes mellitus with hyperglycemia; Z11.4 Encounter for screening for human immunodeficiency virus [HIV]
CPT/HCPCS: 36415; 80053; 80061; 86803; 87389; 82043; 82570; 83036; 84443

== ENCOUNTER → 2021-09-07 08:14 | Outpatient (BNVA) | payer MEDICARE, MEDICAID, SELFPAY | PROVIDERS: PCP Family Medicine; Referring Provider Family Medicine; Visit Provider Student in an Organized Health Care Education/Training Program | DX: M23.92 Unspecified internal derangement of left knee (principal) | CPT/HCPCS: 99214 ==

== ENCOUNTER 2021-09-21 01:49 | Outpatient (CLI) | payer MEDICARE, MEDICAID, SELFPAY ==
--- NOTE | 2021-09-21 06:30 | DI.MRI_ITS ---
Exam(s) MR LOWER JOINT LT WO EXAM: MR LOWER JOINT LT WO CLINICAL HISTORY: PAIN, INTERNAL DERANGEMENT,M23.92. TECHNIQUE: Multiplanar multisequence MRI was performed. COMPARISON: CR XR KNEE LT 3V AP,LAT,ANDREW from 09/21/2020 FINDINGS: BONES: There is no fracture or contusion pattern. JOINTS: Articular cartilage is unremarkable. A small joint effusion is present. TENDONS: Extensor mechanism: Unremarkable. Medial retinaculum: Unremarkable. Lateral retinaculum: Unremarkable. Popliteus: Unremarkable. Medial head of the gastrocnemius muscle: Edema at the origin of the medial gastrocnemius. Lateral he ad unremarkable. MUSCLES: Unremarkable. MENISCI: The medial meniscus is unremarkable. The lateral meniscus shows a question of a small tear in the anterior aspect of the anterior horn and adjacent small meniscal cyst. SOFT TISSUES: Unremarkable. LIGAMENTS: Anterior Cruciate: Edema throughout could represent severe sprain versus mucoid degeneration. Posterior Cruciate: Unremarkable. Medial Collateral:Unremarkable. Lateral Collateral: Unremarkable. OTHER: Tiny Moore's cyst. Venous varicosities medial subcutaneous fat. Minimal edema. IMPRESSION: Severe ACL sprain versus mucoid degeneration. Sprain at the origin of the medial head of gastrocnemius muscle. Small tear and adjacent cyst of the anterior horn of the lateral meniscus. DATA REPOSITORY:
== END 2021-09-21 02:09 ==
PROVIDERS: PCP Family Medicine; Visit Provider Student in an Organized Health Care Education/Training Program
DX: S83.252A Bucket-handle tear of lateral meniscus, current injury, left knee, initial encounter (principal); X58.XXXA Exposure to other specified factors, initial encounter
CPT/HCPCS: 73721

== ENCOUNTER → 2021-10-09 15:08 | Outpatient (BNVA) | payer MEDICARE, MEDICAID, SELFPAY | PROVIDERS: PCP Nurse Practitioner; Referring Provider Nurse Practitioner; Visit Provider Student in an Organized Health Care Education/Training Program | DX: M23.92 Unspecified internal derangement of left knee (principal) | CPT/HCPCS: 20610; J1040 ==

== ENCOUNTER 2022-02-05 02:57 | Outpatient (CLI) | payer MEDICARE, MEDICAID, SELFPAY ==
--- NOTE | 2022-02-05 10:00 | NS.NUTBLAN_ITS ---
Lenka was referred for diabetes self management education and education on how to place a Dexcom 6 Continuous Glucose Monitor. She is also followed by Toi Hernandez, PharmD, CDCES at [facility]. Dm meds: lantus 35 units HS, 1-20 Lispro TID, 25 mg Jardiance Carb: Insulin Ratio: 1 units insulin for 6-10 g CHO Session today focused on how to program Dexcom 6 snow shoveler and attach sensor/transmitter. able to place sensor without issue. Set low alert at 75 mg/dl, high alert at 200 mg/dl. Will follow up in 10 days for data download. Will forward results to PCP, Toi Kay at that time. Follow up 02/14/22 at 2 pm. i
== END 2022-02-05 02:58 | disposition home or self-care (01) ==
LOC: DS 02:57
PROVIDERS: PCP Nurse Practitioner; Visit Provider Dietitian, Registered
DX: E11.9 Type 2 diabetes mellitus without complications (principal); Z79.4 Long term (current) use of insulin; Z71.3 Dietary counseling and surveillance
CPT/HCPCS: 97802

== ENCOUNTER 2022-03-05 04:24 | Outpatient (CLI) | payer MEDICARE, MEDICAID, SELFPAY ==
--- NOTE | 2022-03-05 11:00 | NS.NUTBLAN_ITS ---
Preeti returns for diabetes self management education. 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 Really liked using the Dexcom 6 continuous glucose monitor last week. She reports it helped her make better meal choices and she has lost 11 lbs in last 2 weeks. Wt: 211 lbs DM meds: she has reduced lantus to 30 units HS and takes humalog at meals with a 1:15 ratio. Diet Recall: Eggs, fruit for B, L: hot dog bun with 3 meat balls- D: meat and vegetables. She has been taking fingersticks 2-3 times daily since CGM not available. Reports fasting sugars < 140 mg/dl and that post prandial levels are < 200 mg.dl. Reports that last week she took 10 units humalog (1:5 ratio) with dinner and ended up with a BS of 55 mg/dl. Suspect with recent weight loss, better food choices that insulin sensitivity improved. Reviewed meals and encouraged her to continue to count carbs at meals and to take a minimum of 1:15 insulin/carb ratio. Also, reviewed how to treat hypoglycemia (15:15 rule) and hyperglycemia. Preeti to follow up with Toi Hernandez at [facility] about getting replacement sales analytics manager. Will follow up by phone in next 2 weeks.
== END 2022-03-05 04:25 | disposition home or self-care (01) ==
LOC: DS 04:25
PROVIDERS: PCP Nurse Practitioner; Visit Provider Dietitian, Registered
DX: E11.9 Type 2 diabetes mellitus without complications (principal); Z79.4 Long term (current) use of insulin; Z71.3 Dietary counseling and surveillance
CPT/HCPCS: 97802

== ENCOUNTER 2022-10-02 08:47 | Outpatient (CLI) | payer MEDICARE, MEDICAID, SELFPAY ==
[2022-10-02 12:29] LABS: ESR 2 mm/hr (0-30)
[2022-10-02 12:49] LABS: ALT 20 U/L (14-59); AST 10 U/L (15-37); Albumin 3.7 g/dL (3.4-5.0); Alkaline Phosphatase 77 U/L (46-116); Anion Gap 4.9 mmol/L (3-11); BUN 26 mg/dL (7-18); Bilirubin, Total 0.8 mg/dL (0.2-1.0); CO2 32.1 mmol/L (21.0-32.0); CREATININE 0.8 mg/dL (0.55-1.02); Calcium 9.2 mg/dL (8.5-10.1); Calculated LDL 86 mg/dL (<100); Chloride 102 mmol/L (98-107); Cholesterol 171 mg/dL (<200); Estimated GFR 80.21 (mL/min/1.73m2); Glucose 158 mg/dL (74-106); HDL Cholesterol 77 mg/dL (40-60); Potassium 4.4 mmol/L (3.5-5.1); Sodium 139 mmol/L (136-145); Total Protein 7.2 g/dL (6.4-8.2); Triglyceride 41 mg/dL (<150)
[2022-10-02 12:57] LABS: C-Reactive Protein 0.19 mg/dL (0.0-0.3)
== END 2022-10-02 08:48 | disposition home or self-care (01) ==
LOC: LOS 08:47
PROVIDERS: PCP Nurse Practitioner Family; Referring Provider Nurse Practitioner Family; Visit Provider Nurse Practitioner Family
DX: E78.5 Hyperlipidemia, unspecified (principal); M25.50 Pain in unspecified joint; E11.8 Type 2 diabetes mellitus with unspecified complications; Z79.4 Long term (current) use of insulin
CPT/HCPCS: 36415; 80053; 80061; 85652; 83036; 86140

== ENCOUNTER 2023-01-02 13:27 | Outpatient (REF) | payer MEDICARE, MEDICAID, SELFPAY ==
[2023-01-02 13:04] LABS: TSH (W/Ref FT4) 2.64 uIU/mL (0.36-3.74)
== END 2023-01-02 13:28 | disposition home or self-care (01) ==
LOC: LBN 13:27
PROVIDERS: PCP Nurse Practitioner Family; Visit Provider Nurse Practitioner Family
DX: E03.9 Hypothyroidism, unspecified (principal)
CPT/HCPCS: 84443

== ENCOUNTER 2024-01-24 17:02 | Emergency (ER) | payer MEDICARE, SELFPAY ==
[2024-01-24 17:29] VITALS: BP 133/73; PULSE 84; RESP 18; TEMP 36.9; O2SAT 96
--- NOTE | 2024-01-24 21:15 | DI.RAD_ITS ---
Exam(s) XR KNEE LT 3V AP,LAT,ANDREW EXAM: XR KNEE LT 3V AP,LAT,ANDREW CLINICAL HISTORY: fall. TECHNIQUE: 2D digital imaging was performed. Three views. COMPARISON: MR MR LOWER JOINT LT WO from 09/21/2021 FINDINGS: BONES: No acute fracture is present. No bony destructive lesion is seen. JOINTS: The knee is normally aligned. No joint effusion is seen. Bony density seen anterior to tibial spines on the lateral view appears chronic. Joint spaces are maintained. No significant periarticu lar spurring. SOFT TISSUE: Swelling. IMPRESSION: Anterior soft tissue swelling. No evidence of fracture. Joint space loose body. DATA REPOSITORY: RADIATION DOSE DELIVERED:
--- NOTE | 2024-01-24 21:15 | DI.RAD_ITS ---
Exam(s) XR SHOULDER RT COMPLETE 2+V EXAM: XR SHOULDER RT COMPLETE 2+V CLINICAL HISTORY: fall. TECHNIQUE: 2D digital imaging was performed. Four views. COMPARISON: No exams were available for comparison FINDINGS: BONES: No acute fracture is present. No bony destructive lesion is seen. JOINTS: No dislocation present. AC joint not widened. Spurring at the glenoid. Glenohumeral joint space is maintained. SOFT TISSUE: Small calcification adjacent to greater tuberosity could indicate calcific tendinosis. IMPRESSION: No acute abnormality. DATA REPOSITORY: RADIATION DOSE DELIVERED:
--- NOTE | 2024-01-24 21:20 | W.ED.GENAD ---
Discharge Plan Disposition Patient Disposition: Home Condition: Good Discharge Details Clinical Impression: Fall Primary Care Provider: Flaco Germain ED Provider: Freda Vasquez Home Meds and New Rx's Prescriptions: Continued (DME) OneTouch Verio test strips Strip 1 ea Miscellaneous 4-6 times/day Qty: 100 11RF Rx Instructions: use 4 times a day ketoconazole 2 % cream 1 applic topical BID Qty: 60 2RF Rx Instructions: local application on feet lesions twice a day until rash is gone pravastatin 80 mg tablet 40 mg PO DAILY Qty: 45 4RF insulin lispro [Humalog KwikPen Insulin] 100 unit/mL insulin pen 1 - 20 unit subcut AC MDD 60 Qty: 15 12RF Rx Instructions: take 5 units for each 15 carb- at each meal (DME) pen needle, diabetic [BD Ultra-Fine Jhoana Pen Needle] 32 gauge x 5/32 needle 1 ea Miscellaneous DAILY Qty: 300 6RF Rx Instructions: FOR JHOANA 4mm 32G pen needles Dx E11.39 (DME) blood-glucose meter,continuous Misc See Rx Instructions .ROUTE .MEDSUPPLY Qty: 6 3RF Rx Instructions: As directed (DME) Dexcom G6 Sensor Device See Rx Instructions .Route Qty: 3 12RF Rx Instructions: Once Q10 days As directed (DME) Dexcom G6 Transmitter Device See Rx Instructions .Route Qty: 1 4RF Rx Instructions: As directed montelukast 10 mg tablet 10 mg PO DAILY Qty: 90 3RF insulin glargine [Lantus Solostar U-100 Insulin] 100 unit/mL (3 mL) insulin pen 37 unit subcut HS Qty: 30 6RF Rx Instructions: increased dose/not sent mirabegron 50 mg tablet extended release 24 hr 50 mg PO DAILY Qty: 90 3RF Jardiance 25 mg tablet See Rx Instructions .ROUTE .COMPLEX Qty: 90 3RF Dose Instruction: TAKE 1 TABLET BY MOUTH DAILY Rx Instructions: TAKE 1 TABLET BY MOUTH DAILY trazodone 50 mg tablet See Rx Instructions .ROUTE .COMPLEX Qty: 180 3RF Dose Instruction: TAKE 1-2 TABLETS BY MOUTH EVERY DAY AT BEDTIME NEEDED FOR INSOMNIA Rx Instructions: TAKE 1-2 TABLETS BY MOUTH EVERY DAY AT BEDTIME NEEDED FOR INSOMNIA lisinopril 20 mg tablet 20 mg PO DAILY Qty: 90 3RF albuterol sulfate 2.5 mg /3 mL (0.083 %) solution for nebulization 2.5 mg UPD Q6H PRN MDD 4 vials PRN (Reason: shortness of breath or wheezing) Qty: 100 0RF levothyroxine 50 mcg tablet 50 mcg PO DAILY Qty: 90 2RF mirtazapine 15 mg tablet 15 mg PO QHS Qty: 90 0RF Bydureon BCise 2 mg/0.85 mL auto-injector 2 mg subcut Q7D Qty: 3.4 0RF albuterol sulfate [ProAir HFA] 90 mcg/actuation HFA aerosol inhaler 2 puff Inhalation QID PRN (Reason: bronchospasm, wheeze) Qty: 3 4RF aspirin [Aspir-81] 81 MG tablet,delayed release (DR/EC) 81 mg PO HS Discharge Instructions Instructions: Acute Pain, Adult, Preventing Falls ED Additional Instructions: Tylenol and ibuprofen over the counter for pain; follow the directions on the bottle. You can use ice on your shoulder and knee. Rest them for the next 2-3 days. Call your primary care doctor on Saturday to schedule an appointment within the next week to followup on your visit here. Return to the emergency department for new or worsening symptoms including inability to walk, numbness/weakness/tingling, or if you have any other concerns. Referrals: Flaco Germain NP [Primary Care Provider] - [facility] General Mode of arrival: ambulatory. Date/Time Provider Initiated Documentation: 01/24/24 17:15. Limitations to Documentation: no limitations. Information obtained by: patient. HPI Narrative: 68yo F with hx of asthma, COPD, IDDM, HTN, presenting after mechanical fall. Tripped over cat carrier at around 4pm, landed on her knees and then fell forward striking her right shoulder. Did not strike her head or lose consciousness. Reports knee pain L >R and right shoulder pain worse with moving her shoulder. Denies pain or injury elsewhere. Otherwise in her usual state of health with no fevers, chills, headache, nasuea, vomiting Related Data Home Medications ?Medication ?Instructions ?Recorded ?Confirmed aspirin 81 mg tablet,delayed 81 mg PO HS 11/01/14 01/24/24 release (Aspir-) pen needle, diabetic 32 gauge x #300 ea 03/31/19 09/23/2332 (BD Ultra-Fine Jhoana Pen Needle) blood sugar diagnostic (OneTouch #100 strips 06/20/20 09/23/23 Verio test strips) ketoconazole 2 % topical cream 1 applic topical BID #60 grams 03/20/21 01/24/24 blood-glucose meter,continuous #6 ea 05/10/22 09/23/23 blood-glucose sensor (Dexcom G6 #3 ea 05/10/22 09/23/23 Sensor device) blood-glucose transmitter (Dexcom #1 ea 05/10/22 09/23/23 G6 Transmitter device) montelukast 10 mg tablet 10 mg PO DAILY #90 tab-caps 06/19/22 01/24/24 pravastatin 80 mg tablet 40 mg (1/2 x 80 mg) PO DAILY #45 07/03/22 01/24/24 tabs insulin glargine 100 unit/mL (3 37 unit (0.37 mL) subcut HS #30 mL 04/22/23 01/24/24 mL) subcutaneous pen (Lantus Solostar U-100 Insulin) mirabegron 50 mg tablet,extended 50 mg PO DAILY #90 tabs 04/22/23 01/24/24 release 24 hr empagliflozin 25 mg tablet See Rx Instructions .Route 06/03/23 01/24/24 (Jardiance) .COMPLEX #90 tabs trazodone 50 mg tablet See Rx Instructions .Route 09/06/23 01/24/24 .COMPLEX #180 tabs insulin lispro 100 unit/mL 1 - 20 unit (0.01 - 0.2 mL) subcut 09/09/23 01/24/24 subcutaneous pen (Humalog KwikPen AC #15 mL (U-100) Insulin) lisinopril 20 mg tablet 20 mg PO DAILY #90 tab-caps 12/06/23 01/24/24 albuterol sulfate 2.5 mg/3 mL 2.5 mg (3 mL) UPD Q6H PRN PRN 12/09/23 01/24/24 (0.083 %) solution for nebulization shortness of breath or wheezing #100 vials levothyroxine 50 mcg tablet 50 mcg PO DAILY #90 tab-caps 12/09/23 01/24/24 mirtazapine 15 mg tablet 15 mg PO QHS #90 tabs 12/09/23 01/24/24 exenatide microspheres 2 mg/0.85 2 mg (0.85 mL) subcut Q7D #3.4 mL 12/11/23 01/24/24 mL subcutaneous auto-injector (Bydureon BCise) albuterol sulfate 90 mcg/actuation 2 puff inhalation QID PRN 12/13/23 01/24/24 aerosol inhaler (ProAir HFA) bronchospasm, wheeze #3 grams Previous Rx's ?Medication ?Instructions ?Recorded pen needle, diabetic 32 gauge x #300 ea 03/31/19 (BD Ultra-Fine Jhoana Pen Needle) blood sugar diagnostic (Modern Message #100 strips 06/20/20 Verio test strips) ketoconazole 2 % topical cream 1 applic topical BID #60 grams 03/20/21 blood-glucose meter,continuous #6 ea 05/10/22 blood-glucose sensor (Dexcom G6 #3 ea 05/10/22 Sensor device) blood-glucose transmitter (Dexcom #1 ea 05/10/22 G6 Transmitter device) montelukast 10 mg tablet 10 mg PO DAILY #90 tab-caps 06/19/22 pravastatin 80 mg tablet 40 mg (1/2 x 80 mg) PO DAILY #45 07/03/22 tabs insulin glargine 100 unit/mL (3 37 unit (0.37 mL) subcut HS #30 mL 04/22/23 mL) subcutaneous pen (Lantus Solostar U-100 Insulin) mirabegron 50 mg tablet,extended 50 mg PO DAILY #90 tabs 04/22/23 release 24 hr empagliflozin 25 mg tablet See Rx Instructions .Route 06/03/23 (Jardiance) .COMPLEX #90 tabs trazodone 50 mg tablet See Rx Instructions .Route 09/06/23 .COMPLEX #180 tabs insulin lispro 100 unit/mL 1 - 20 unit (0.01 - 0.2 mL) subcut 09/09/23 subcutaneous pen (Humalog KwikPen AC #15 mL (U-100) Insulin) lisinopril 20 mg tablet 20 mg PO DAILY #90 tab-caps 12/06/23 albuterol sulfate 2.5 mg/3 mL 2.5 mg (3 mL) UPD Q6H PRN PRN 12/09/23 (0.083 %) solution for nebulization shortness of breath or wheezing #100 vials levothyroxine 50 mcg tablet 50 mcg PO DAILY #90 tab-caps 12/09/23 mirtazapine 15 mg tablet 15 mg PO QHS #90 tabs 12/09/23 exenatide microspheres 2 mg/0.85 2 mg (0.85 mL) subcut Q7D #3.4 mL 12/11/23 mL subcutaneous auto-injector (AIRSISse) albuterol sulfate 90 mcg/actuation 2 puff inhalation QID PRN 12/13/23 aerosol inhaler (ProAir HFA) bronchospasm, wheeze #3 grams Allergies Allergy/AdvReac Type Severity Reaction Status Date / Time egg AdvReac Intermediate ABDOMINAL Verified 01/24/24 17:31 PAIN influenza virus vaccine, AdvReac Unknown NAUSEA/VOMI Verified 01/24/24 17:31 specific TING sulfamethoxazole AdvReac Unknown NAUSEA/VOMI Verified 01/24/24 17:31 TING trimethoprim AdvReac Unknown Nausea Verified 01/24/24 17:31 General Stated Complaint: Orthopedic LUZ: 4 Review of Systems Narrative: see HPI Course Vital Signs Vital signs: Vital Signs Temperature 36.9 C 01/24/24 17:29 Pulse 84 01/24/24 17:29 Respiratory Rate 18 01/24/24 17:29 Blood Pressure 133/73 01/24/24 17:29 Pulse Oximetry 96 01/24/24 17:29 Temperature 36.9 C 01/24/24 17:29 Temperature Source Temporal Artery Scan 01/24/24 17:29 Pulse 84 01/24/24 17:29 Respiratory Rate 18 01/24/24 17:29 Blood Pressure 133/73 01/24/24 17:29 Pulse Oximetry 96 01/24/24 17:29 Oxygen Delivery Method Room Air 01/24/24 17:29 Oxygen Flow Rate 0 01/24/24 17:29 Medical Decision Making Imaging Data Radiologic Study: Imaging: X-Ray Radiologist's impression: L knee: IMPRESSION: No acute findings. R shoulder: IMPRESSION: No acute fracture or dislocation. Quality:SDOH Health Related Social Needs: No Data to Display PFSH All Active Problems (Updated 01/24/24 @ 23:10 by Freda Vasquez MD) Fall (Acute) Chronic rhinitis (Acute) Arthralgia (Acute) Lymphadenopathy (Acute) Rhinitis (Acute) Internal derangement of left knee (Acute) Restless leg syndrome, uncontrolled (Acute) Uterine prolapse (Acute) bladder/rectum; Pessary- Type 2 diabetes mellitus with complication, with long-term current use of insulin (Acute) ophtalmopathy no neuropathy 08/2021- mild microalbuminuria Primary fibromyalgia syndrome (Acute) arthralgias Mixed stress and urge urinary incontinence (Acute 01/06/14) : Enablex started Mild non proliferative diabetic retinopathy (Acute 02/23/09) Mild, non-proliferative OU per Dr. Carey 12/21/08 Hyperlipidemia (Acute 11/12/12) Depressive disorder (Acute) Cardiac murmur, unspecified (Acute) normal echocardiogram -2014 COPD (chronic obstructive pulmonary disease) (Acute) Alpha 1 anti-trypsin deficiency - phenotype MS () PFTs: 2009/good bronchodil. response/ Hypothyroidism (Chronic) GERD (gastroesophageal reflux disease) (Chronic) Hyperlipidemia (Chronic) Hypertension (Chronic) Severe obesity (BMI >= 40) (Chronic) Medical History Cardiac murmur COPD (chronic obstructive pulmonary disease) COVID-19 06/2021- mild symtoms Depressive disorder Fibromyalgia Hyperlipidemia Mixed stress and urge urinary incontinence Non-proliferative diabetic retinopathy Type 2 diabetes mellitus Uterine prolapse Surgical History Breast, Lumpectomy RIGHT Cholecystectomy Fracture, Open Treatment (08/08/10) right distal fibula; internal fixation MOLE REMOVAL Open Carpal Tunnel release (~1999) RIGHT Tonsillectomy Family History Mother , age 74 Essential hypertension COPD (chronic obstructive pulmonary disease) Depression Heart disease Lung cancer Asthma Father , age 39 Hodgkins disease Sister Essential hypertension Alcohol abuse Sister Diabetes Essential hypertension COPD (chronic obstructive pulmonary disease) Neoplasm ORAL Asthma Maternal Grandfather , age 70 Depression Diabetes Hypertension Paternal Grandfather , age 74 Lung cancer Brain cancer Maternal Grandmother , age 66 Diabetes Hypertension Paternal Grandmother , age 89 Essential hypertension Alcohol abuse Sister , ALCOHOL POISONING at age 25. Substance abuse Alcohol abuse Son Alcohol abuse Son Asthma Alcohol abuse Social History Smoking/Tobacco Use Status: Never Second Hand Exposure: Yes Smoking risk assessment performed?: Yes Alcohol Intake: current Alcohol Intake frequency: a few times a week Alcohol type: beer Drug use: Never Substance use type: does not use Caregiver/Support person: No Household members: significant other and children Housing: house Communication Needs: None Pets and animals: Yes Pets and animals: cat(s) and dog(s) Sexually active: Yes Do you think of yourself as: straight/heterosexual Current gender identity: female What is your relationship status?: living with partner How often do you talk on the phone with friends or family?: three or more times per week How often do you get together with friends or relatives?: three or more times per week How often do you attend orthodox or confucianist services?: decline to answer Do you belong to any clubs or organized social groups?: decline to answer Panel score (0-1 are the most socially isolated patients): 2 What type of physical activity do you participate in: decline to answer Duration: < 15 minutes/day Frequency: decline to answer Isabelle/Worship: Synagogue Special isabelle needs: No Seatbelt use: always Helmet use: No Drive intox or ride w/intox driver messenger: No Do you feel safe at home: Yes Do you feel safe in your relationship?: Yes Female Reproductive History Menstrual control method: progestin IUCD
[2024-01-24] MEDS: Ketorolac 15 MG/ML VIAL IM (21:25)
[2024-01-24] MEDS: Acetaminophen 500 MG TAB 1000 MG PO (21:25)
--- NOTE | 2024-01-24 23:08 | DI.VRAD_ITS ---
PROCEDURE INFORMATION: Exam: XR Left Knee Exam date and time: 01/24/2024 9:56 PM Age: 68 years old Clinical indication: Injury or trauma; Fall; Blunt trauma; Knee; Left TECHNIQUE: Imaging protocol: Radiologic exam of the left knee. Views: 3 views. COMPARISON: MR LOWER JOINT LT WO 09/21/2021 8:39 AM FINDINGS: Bones/joints: No suspicious osseous lytic or blastic lesion. No discrete or displaced fracture. No joint dislocation. Soft tissues: Prepatellar edema. IMPRESSION: No acute findings. Dictated and Authenticated by: Gerardo Caban MD. Ordering:TRACY Barba MD
--- NOTE | 2024-01-24 23:10 | DI.VRAD_ITS ---
PROCEDURE INFORMATION: Exam: XR Right Shoulder Exam date and time: 01/24/2024 9:51 PM Age: 68 years old Clinical indication: Injury or trauma; Fall; Blunt trauma (contusions or hematomas); Shoulder; Right TECHNIQUE: Imaging protocol: Radiologic exam of the right shoulder. Views: 2 or more views. COMPARISON: CR XR CHEST 2V PA LATERAL 03/05/2018 3:27 PM FINDINGS: Bones/joints: No suspicious osseous lytic or blastic lesion. No acute fracture or dislocation. Acromioclavicular and coracoclavicular intervals within normal limits. Mild spurring of the glenoid. Soft tissues: No focal abnormality. IMPRESSION: No acute fracture or dislocation. Dictated and Authenticated by: Gerardo Caban MD. Ordering:TRACY Barba MD
--- NOTE | 2024-01-24 23:17 | ED.GENADUL_ITS ---
Discharge Plan Disposition Patient Disposition: Home Condition: Good Discharge Details Clinical Impression: Fall Primary Care Provider: Flaco Germain ED Provider: Freda Vasquez Home Meds and New Rx's Prescriptions: Continued (DME) OneTouch Verio test strips Strip 1 ea Miscellaneous 4-6 times/day Qty: 100 11RF Rx Instructions: use 4 times a day ketoconazole 2 % cream 1 applic topical BID Qty: 60 2RF Rx Instructions: local application on feet lesions twice a day until rash is gone pravastatin 80 mg tablet 40 mg PO DAILY Qty: 45 4RF insulin lispro [Humalog KwikPen Insulin] 100 unit/mL insulin pen 1 - 20 unit subcut AC MDD 60 Qty: 15 12RF Rx Instructions: take 5 units for each 15 carb- at each meal (DME) pen needle, diabetic [BD Ultra-Fine Jhoana Pen Needle] 32 gauge x 5/32 needle 1 ea Miscellaneous DAILY Qty: 300 6RF Rx Instructions: FOR JHOANA 4mm 32G pen needles Dx E11.39 (DME) blood-glucose meter,continuous Misc See Rx Instructions .ROUTE .MEDSUPPLY Qty: 6 3RF Rx Instructions: As directed (DME) Dexcom G6 Sensor Device See Rx Instructions .Route Qty: 3 12RF Rx Instructions: Once Q10 days As directed (DME) Dexcom G6 Transmitter Device See Rx Instructions .Route Qty: 1 4RF Rx Instructions: As directed montelukast 10 mg tablet 10 mg PO DAILY Qty: 90 3RF insulin glargine [Lantus Solostar U-100 Insulin] 100 unit/mL (3 mL) insulin pen 37 unit subcut HS Qty: 30 6RF Rx Instructions: increased dose/not sent mirabegron 50 mg tablet extended release 24 hr 50 mg PO DAILY Qty: 90 3RF Jardiance 25 mg tablet See Rx Instructions .ROUTE .COMPLEX Qty: 90 3RF Dose Instruction: TAKE 1 TABLET BY MOUTH DAILY Rx Instructions: TAKE 1 TABLET BY MOUTH DAILY trazodone 50 mg tablet See Rx Instructions .ROUTE .COMPLEX Qty: 180 3RF Dose Instruction: TAKE 1-2 TABLETS BY MOUTH EVERY DAY AT BEDTIME NEEDED FOR INSOMNIA Rx Instructions: TAKE 1-2 TABLETS BY MOUTH EVERY DAY AT BEDTIME NEEDED FOR INSOMNIA lisinopril 20 mg tablet 20 mg PO DAILY Qty: 90 3RF albuterol sulfate 2.5 mg /3 mL (0.083 %) solution for nebulization 2.5 mg UPD Q6H PRN MDD 4 vials PRN (Reason: shortness of breath or wheezing) Qty: 100 0RF levothyroxine 50 mcg tablet 50 mcg PO DAILY Qty: 90 2RF mirtazapine 15 mg tablet 15 mg PO QHS Qty: 90 0RF Bydureon BCise 2 mg/0.85 mL auto-injector 2 mg subcut Q7D Qty: 3.4 0RF albuterol sulfate [ProAir HFA] 90 mcg/actuation HFA aerosol inhaler 2 puff Inhalation QID PRN (Reason: bronchospasm, wheeze) Qty: 3 4RF aspirin [Aspir-81] 81 MG tablet,delayed release (DR/EC) 81 mg PO HS Discharge Instructions Instructions: Acute Pain, Adult, Preventing Falls ED Additional Instructions: Tylenol and ibuprofen over the counter for pain; follow the directions on the bottle. You can use ice on your shoulder and knee. Rest them for the next 2-3 days. Call your primary care doctor on Saturday to schedule an appointment within the next week to followup on your visit here. Return to the emergency department for new or worsening symptoms including inability to walk, numbness/weakness/tingling, or if you have any other co ncerns. Referrals: Flaco Germain NP [Primary Care Provider] - [facility] General Mode of arrival: ambulatory . Date/Time Provider Initiated Documentation: 01/24/24 17:15 . Limitations to Documentation: no limitations . Information obtained by: patient . HPI Narrative: 68yo F with hx of asthma, COPD, IDDM, HTN, presenting after mechanical fall. Tripped over cat carrier at around 4pm, landed on her knees and then fell forward striking her right shoulder. Did not strike her head or lose consciousness. Reports knee pain L >R and right shoulder pain worse with moving her shoulder. Denies pain or injury elsewhere. Otherwise in her usual state of health with no fevers, chills, headache, nasuea, vomiting, numbness, tingling, weakness, or other concerns. Related Data Home Medications ?Medication ?Instructions ?Recorded ?Confirmed aspirin 81 mg tablet,delayed 81 mg PO HS 11/01/14 01/24/24 release (Aspir-) pen needle, diabetic 32 gauge x #300 ea 03/31/19 09/23/23/32 (BD Ultra-Fine Jhoana Pen Needle) blood sugar diagnostic (OneTouch #100 strips 06/20/20 09/23/23 Verio test strips) ketoconazole 2 % topical cream 1 applic topical BID #60 grams 03/20/21 01/24/24 blood-glucose meter,continuous #6 ea 05/10/22 09/23/23 blood-glucose sensor (Dexcom G6 #3 ea 05/10/22 09/23/23 Sensor device) blood-glucose transmitter (Dexcom #1 ea 05/10/22 09/23/23 G6 Transmitter device) montelukast 10 mg tablet 10 mg PO DAILY #90 tab-caps 06/19/22 01/24/24 pravastatin 80 mg tablet 40 mg (1/2 x 80 mg) PO DAILY #45 07/03/22 01/24/24 tabs insulin glargine 100 unit/mL (3 37 unit (0.37 mL) subcut HS #30 mL 04/22/23 01/24/24 mL) subcutaneous pen (Lantus Solostar U-100 Insulin) mirabegron 50 mg tablet,extended 50 mg PO DAILY #90 tabs 04/22/23 01/24/24 release 24 hr empagliflozin 25 mg tablet See Rx Instructions .Route 06/03/23 01/24/24 (Jardiance) .COMPLEX #90 tabs trazodone 50 mg tablet See Rx Instructions .Route 09/06/23 01/24/24 .COMPLEX #180 tabs insulin lispro 100 unit/mL 1 - 20 unit (0.01 - 0.2 mL) subcut 09/09/23 01/24/24 subcutaneous pen (Humalog KwikPen AC #15 mL (U-100) Insulin) lisinopril 20 mg tablet 20 mg PO DAILY #90 tab-caps 12/06/23 01/24/24 albuterol sulfate 2.5 mg/3 mL 2.5 mg (3 mL) UPD Q6H PRN PRN 12/09/23 01/24/24 (0.083 %) solution for nebulization shortness of breath or wheezing #100 vials levothyroxine 50 mcg tablet 50 mcg PO DAILY #90 tab-caps 12/09/23 01/24/24 mirtazapine 15 mg tablet 15 mg PO QHS #90 tabs 12/09/23 01/24/24 exenatide microspheres 2 mg/0.85 2 mg (0.85 mL) subcut Q7D #3.4 mL 12/11/23 01/24/24 mL subcutaneous auto-injector (Bydureon BCise) albuterol sulfate 90 mcg/actuation 2 puff inhalation QID PRN 12/13/23 01/24/24 aerosol inhaler (ProAir HFA) bronchospasm, wheeze #3 grams Previous Rx's ?Medication ?Instructions ?Recorded pen needle, diabetic 32 gauge x #300 ea 03/31/19 (BD Ultra-Fine Jhoana Pen Needle) blood sugar diagnostic (Orchestria CorporationTouch #100 strips 06/20/20 Verio test strips) ketoconazole 2 % topical cream 1 applic topical BID #60 grams 03/20/21 blood-glucose meter,continuous #6 ea 05/10/22 blood-glucose sensor (Dexcom G6 #3 ea 05/10/22 Sensor device) blood-glucose transmitter (Dexcom #1 ea 05/10/22 G6 Transmitter device) montelukast 10 mg tablet 10 mg PO DAILY #90 tab-caps 06/19/22 pravastatin 80 mg tablet 40 mg (1/2 x 80 mg) PO DAILY #45 07/03/22 tabs insulin glargine 100 unit/mL (3 37 unit (0.37 mL) subcut HS #30 mL 04/22/23 mL) subcutaneous pen (Lantus Solostar U-100 Insulin) mirabegron 50 mg tablet,extended 50 mg PO DAILY #90 tabs 04/22/23 release 24 hr empagliflozin 25 mg tablet See Rx Instructions .Route 06/03/23 (Jardiance) .COMPLEX #90 tabs trazodone 50 mg tablet See Rx Instructions .Route 09/06/23 .COMPLEX #180 tabs insulin lispro 100 unit/mL 1 - 20 unit (0.01 - 0.2 mL) subcut 09/09/23 subcutaneous pen (Humalog KwikPen AC #15 mL (U-100) Insulin) lisinopril 20 mg tablet 20 mg PO DAILY #90 tab-caps 12/06/23 albuterol sulfate 2.5 mg/3 mL 2.5 mg (3 mL) UPD Q6H PRN PRN 12/09/23 (0.083 %) solution for nebulization shortness of breath or wheezing #100 vials levothyroxine 50 mcg tablet 50 mcg PO DAILY #90 tab-caps 12/09/23 mirtazapine 15 mg tablet 15 mg PO QHS #90 tabs 12/09/23 exenatide microspheres 2 mg/0.85 2 mg (0.85 mL) subcut Q7D #3.4 mL 12/11/23 mL subcutaneous auto-injector (ByOpenRentse) albuterol sulfate 90 mcg/actuation 2 puff inhalation QID PRN 12/13/23 aerosol inhaler (ProAir HFA) bronchospasm, wheeze #3 grams Allergies Allergy/AdvReac Type Severity Reaction Status Date / Time egg AdvReac Intermediate ABDOMINAL Verified 01/24/24 17:31 PAIN influenza virus vaccine, AdvReac Unknown NAUSEA/VOMI Verified 01/24/24 17:31 specific TING sulfamethoxazole AdvReac Unknown NAUSEA/VOMI Verified 01/24/24 17:31 TING trimethoprim AdvReac Unknown Nausea Verified 01/24/24 17:31 General Stated Complaint: Orthopedic LUZ: 4 Review of Systems Narrative: see HPI Exam Narrative Exam Narrative: GENERAL: Alert, no acute distress. SKIN: Warm and well perfused. HEAD: Atraumatic, normocephalic without edema, discoloration or evidence of trauma. EYES: PERRL. MOUTH: No malocclusion or trismus. NECK: Trachea midline. No discolorations or edema. CV: Regular rate and rhythm, Normal s1 and s2. PV: Radial pulses 2+ bilaterally and symmetric. Dorsalis pedis pulses 2+ bilaterally and symmetric. 2+ capillary refill. No extremity edema. CHEST: No abrasions or ecchymosis. Chest symmetric with respirations. No chest wall tenderness. Lungs are clear to auscultation bilaterally. ABDOMEN: No ecchymosis or abrasions. Soft, nondistended, nontender. BACK: No abrasions, skin openings, or ecchymosis. Spine without bony tenderness, no step offs. PELVIC: Pelvis stable, nontender to lateral compression MSK: No gross deformities Echymosis and mild swelling to anterior left knee. Mild pain with ROM at R shoulder and L knee. No bony tenderness at shoulder. Tolerates full range of motion of extremities without tenderness. No tenderness at right wrist including no snuffbox tenderness. NEURO: Alert and oriented to person, place, and time. GCS 15. Sensation grossly intact and symmetric muscle dermatomes including bilateral upper and lower extremities. Strength 5/5 in bilateral UE and LE. Course Vital Signs Vital signs: Vital Signs Temperature 36.9 C 01/24/24 17:29 Pulse 84 01/24/24 17:29 Respiratory Rate 18 01/24/24 17:29 Blood Pressure 133/73 01/24/24 17:29 Pulse Oximetry 96 01/24/24 17:29 Temperature 36.9 C 01/24/24 17:29 Temperature Source Temporal Artery Scan 01/24/24 17:29 Pulse 84 01/24/24 17:29 Respiratory Rate 18 01/24/24 17:29 Blood Pressure 133/73 01/24/24 17:29 Pulse Oximetry 96 01/24/24 17:29 Oxygen Delivery Method Room Air 01/24/24 17:29 Oxygen Flow Rate 0 01/24/24 17:29 Medical Decision Making 68yo F with hx of asthma, COPD, IDDM, HTN, presenting after MFFS. Vital signs reassuring. Left knee echymosis and pain with ROM at left knee and right shou lder, otherwise no traumatic findings on exam. Neurovascular intact. Not concerned for limb ischemia, intracranial injury, spinal fracture. No indication for advanced imaging or labs. Plain films independently reviewed, agree with radiology reads below with no fracture or disolocation. Tylenol and toradol for pain in the ED. Advised symptomatic treatment at home. Discharged home; discharge instructions and return precations were reviewed with patient who verbalized understanding. All qeustions were answered and she is in full agreement with the plan. Quality:SDOH Health Related Social Needs: No Data to Display PFSH All Active Problems (Updated 01/24/24 @ 23:10 by Freda Vasquez MD) Fall (Acute) Chronic rhinitis (Acute) Arthralgia (Acute) Lymphadenopathy (Acute) Rhinitis (Acute) Internal derangement of left knee (Acute) Restless leg syndrome, uncontrolled (Acute) Uterine prolapse (Acute) bladder/rectum; Pessary- Type 2 diabetes mellitus with complication, with long-term current use of insulin (Acute) ophtalmopathy no neuropathy 08/2021- mild microalbuminuria Primary fibromyalgia syndrome (Acute) arthralgias Mixed stress and urge urinary incontinence (Acute 01/06/14) : Enablex started Mild non proliferative diabetic retinopathy (Acute 02/23/09) Mild, non-proliferative OU per Dr. Carey 12/21/08 Hyperlipidemia (Acute 11/12/12) Depressive disorder (Acute) Cardiac murmur, unspecified (Acute) normal echocardiogram COPD (chronic obstructive pulmonary disease) (Acute) Alpha 1 anti-trypsin deficiency - phenotype MS () PFTs: 2009/ bronchodil. response/ Hypothyroidism (Chronic) GERD (gastroesophageal reflux disease) (Chronic) Hyperlipidemia (Chronic) Hypertension (Chronic) Severe obesity (BMI >= 40) (Chronic) Medical History Cardiac murmur COPD (chronic obstructive pulmonary disease) COVID-19 06/2021- mild symtoms Depressive disorder Fibromyalgia Hyperlipidemia Mixed stress and urge urinary incontinence Non-proliferative diabetic retinopathy Type 2 diabetes mellitus Uterine prolapse Surgical History Breast, Lumpectomy RIGHT Cholecystectomy Fracture, Open Treatment (08/08/10) right distal fibula; internal fixation MOLE REMOVAL Open Carpal Tunnel release (~1999) RIGHT Tonsillectomy Family History Mother , age 74 Essential hypertension COPD (chronic obstructive pulmonary disease) Depression Heart disease Lung cancer Asthma Father , age 39 Hodgkins disease Sister Essential hypertension Alcohol abuse Sister Diabetes Essential hypertension COPD (chronic obstructive pulmonary disease) Neoplasm ORAL Asthma Maternal Grandfather , age 70 Depression Diabetes Hypertension Paternal Grandfather , age 74 Lung cancer Brain cancer Maternal Grandmother , age 66 Diabetes Hypertension Paternal Grandmother , age 89 Essential hypertension Alcohol abuse Sister , ALCOHOL POISONING at age 25. Substance abuse Alcohol abuse Son Alcohol abuse Son Asthma Alcohol abuse Social History Smoking/Tobacco Use Status: Never Second Hand Exposure: Yes Smoking risk assessment performed?: Yes Alcohol Intake: current Alcohol Intake frequency: a few times a week Alcohol type: beer Drug use: Never Substance use type: does not use Caregiver/Support person: No Household members: significant other and children Housing: house Communication Needs: None Pets and animals: Yes Pets and animals: cat(s) and dog(s) Sexually active: Yes Do you think of yourself as: straight/heterosexual Current gender identity: female What is your relationship status?: living with partner How often do you talk on the phone with friends or family?: three or more times per week How often do you get together with friends or relatives?: three or more times per week How often do you attend evangelical or rastafarian services?: decline to answer Do you belong to any clubs or organized social groups?: decline to answer Panel score (0-1 are the most socially isolated patients): 2 What type of physical activity do you participate in: decline to answer Duration: < 15 minutes/day Frequency: decline to answer Isabelle/Catholic: Congregation Special isabelle needs: No Seatbelt use: always Helmet use: No Drive intox or ride w/intox crude oil driver: No Do you feel safe at home: Yes Do you feel safe in your relationship?: Yes Female Reproductive History Menstrual control method: progestin IUCD
[2024-01-24 23:25] VITALS: BP 141/94; PULSE 71; RESP 17; TEMP 36.6; O2SAT 93
== END 2024-01-25 00:02 | disposition home or self-care (01) ==
PROVIDERS: Emergency Provider Student in an Organized Health Care Education/Training Program; PCP Nurse Practitioner Family
DX: S80.02XA Contusion of left knee, initial encounter (principal); M25.511 Pain in right shoulder; J44.9 Chronic obstructive pulmonary disease, unspecified; I10 Essential (primary) hypertension; E78.5 Hyperlipidemia, unspecified; E11.3293 Type 2 diabetes mellitus with mild nonproliferative diabetic retinopathy without macular edema, bilateral; Z79.82 Long term (current) use of aspirin; Z79.4 Long term (current) use of insulin; W01.0XXA Fall on same level from slipping, tripping and stumbling without subsequent striking against object, initial encounter; Y93.01 Activity, walking, marching and hiking; Y92.018 Other place in single-family (private) house as the place of occurrence of the external cause
CPT/HCPCS: 73562; 96372; 99284; 73030; 99283; J1885

== ENCOUNTER 2024-02-21 21:42 | Outpatient (REF) | payer MEDICARE, SELFPAY ==
--- OUTSIDE RECORDS SUMMARY | 2024-02-21 21:44 | XMS_ITS | Encounter Summary ---
Author Organization [facility] Address [address] [place] [address] Care Team Providers Care Reconciliation Accountant Name Role Phone Unavailable Primary Care Provider Unavailabl e Encounter Details Date Type Department Care Team (Late st Contact Info) Description 04/21/2008 Before PRISM Converted Visit ([facility]) [facility] - [facility] conversion [address] [place] [address] Odette Perea NP Social History Tobacco Use Types Packs/Day Years Used Date Smoking Tobacco: Never Assessed Sex and Gender Information Value Date Recorded Sex Assigned at Not on file Gender Identity Not on file Sexual Orientation Not on file documented as of this encounter Plan of Treatment Not on file documented as of this encounter Procedures Procedure Name Priority Date/Time Associated Diagnosis Comments HPV DETECTION, HIGH RISK TYPES Routine 04/21/2008 10:00 EDT CYTOPATHOLOGY Routine 04/21/2008 0:00 EDT documented in this encounter Results * HUMAN PAPILLOMA VIRUS DNA TEST (04/21/2008 10:00 EDT) Specimen Description Cervix, ThinPrep vial [facility] Result Negative for HPV types 16, 18, 31, 33, 35, 39, 45, 51, 52, 56, 58, 59, and 68. [facility] Report Status Final 04/30/2008 [facility] 04/21/2008 10:0 0 EDT 04/27/2008 8:29 EST Odette Perea NP MICROBIOLOGY - GENER AL ORDERABLES [facility] [address] [place] [id number] * CYTOPATHOLOGY (04/21/2008 0:00 EDT) Pathology Report: CYTOPATHOLOGY REPORT ? Reports generated via electronic interface contain original data; ? however they are lacking the format of the original report. ? Caution should be taken when reading/interpreti ng unformatted reports. ? Name: ? PREETI ROJAS ? Accession #: ? [id number] ? : ? 1955 (Age: 52) ??F ?Collect Date: ? 04/21/2008 ? Location: ? [facility] ? Receive Date: ? 04/22/2008 ? Provider: ?ODETTE M ROMI BATTERY CHARGER ? Copy to: ? Specimen/Source: ?Pap Test, Cervix/Endocervix, ThinPrep Imaging System ? with manual evaluation ? Last Menstrual Period: ? Nov. 06 ? Other: ? HPVDX - HPV testing requested regardless of diagnosis on current ThinPrep Pap ?? test. ? SPECIMEN ADEQUACY ? Satisfactory for Evaluation ? - transformation zone component present ? GENERAL CATEGORIZATION ? Negative for Intraepithelial Lesion or Malignancy ? Document reviewed and electronically signed by: ? Roxana Perry, CT(ASCP) ? Report Date: ??04/26/2008 12:42 ? End of Report ? [facility] 04/21/2008 04/22/2008 Odette Perea BATTERY CHARGER PATHOLOGY ORDERABLES [facility] [address] [place] [address] documented in this encounter Visit Diagnoses Not on filedocumented in this encounter
--- OUTSIDE RECORDS SUMMARY | 2024-02-21 21:44 | XMS_ITS | Encounter Summary ---
Author Organization [facility] [place] [address] Care Team Providers Care Associate Financial Advisor Name Role Phone Rocio Mo MD Primary Care Provider [phone] Reason for Visit * Reason Comments Establish Care * Consultation (Routine) - Closed Specialty Diagnoses / Procedures Referred By Contviolet t Referred To Contact Obstetrics and Gynecology Diagnoses Mixed Incontinence Rocio Mo MD [address] [place] [address] [address] [facility] [place] [address] [place] [address] [facility] [address] [place] [address] Referral ID Status Reason Start Date Expiration Date Visits Re quested Visits Authorized [id number] Closed 03/22/2021 03/22/2022 1 1 Encounter Details Date Type Department Care Team (Late st Contact Info) Description 05/05/2021 4:00 PM EST Office Visit Obstetrics [place] [address] Jt Hood, [facility] [place] [address] Mixed stress and urge urinary incontinence Social History Tobacco Use Types Packs/Day Years Used Date Smoking Tobacco: Never Smokeless Tobacco: Never Comments:passive smoke expos ure Sex and Gender Information Value Date Recorded Sex Assigned at Not on file Gender Identity Not on file Sexual Orientation Not on file documented as of this encounter Last Filed Vital Signs Vital Sign Reading Time Taken Comments Blood Pressure 139/57 05/05/2021 3:49 PM EST Pulse 73 05/05/2021 3:49 PM EST Temperature 36.4 ??C (97.6 ??F) 05/05/2021 3:49 PM ES T Respiratory Rate 16 05/05/2021 3:49 PM EST Oxygen Saturation 97% 05/05/2021 3:49 PM EST Inhaled Oxygen Concentration - - Weight 100.7 kg (222 lb) 05/05/2021 3:49 PM EST Height 160 cm (5' 3) 05/05/2021 3:49 PM EST Body Mass Index 39.33 05/05/2021 3:49 PM EST documented in this encounter Progress Notes * Jt Hood, DO - 05/05/2021 4:00 PM EST Female Pelvic Medicine and Reconstructive Surgery @ [facility] Patient Name: Preeti Garner Patient Primary Care Provider: Rocio Mo MD Patient Active Problem List Diagnosis Code ??? CIS - Asthma ??? CIS - Depression ??? CIS - Diabetes Type II ??? CIS - Entered not Verified ??? CIS - Fibromyalgia ??? CIS - HTN ??? CIS - Hyperlipidemia ??? 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 ??? CIS - Obesity ??? CIS - Uterovaginal prolapse ??? Seborrheic keratosis L82.1 ??? Solar lentigo L81.4 Chief Complaint: Urinary incontinence History of Present Illness: Ms. Garner is a 65 y.o. old para 2 woman (NSVDx2) with medical history significant for Diabetes with retinopathy (last A1c 05/2020: 7.7% and last month 8.8% per patient), hypothyroidism, hypertension, HLD, fibromyalgia, DJD, Depression and Obesity, seen at the kind request of Dr. Rocio Mo. She presents for evaluation and assessment of mixed urinary incontinence of many years duration. She has seen Dr. Brooklynn Lucas, Jaxon Valdez and Lance Wong for this issue in the past, most recently with Dr. Wong in 2013 where she was diagnosed with REYNALDO and asymptomatic posterior vaginal prolapse; she was started on Oxybutynin 15mg ER daily, discussed behavioral changes and recommended pelvic floor exercises. Per my records review, the patient has not had urodynamics, although it was planned by Dr. Valdez. Dr. Mo' notes indicate that the patient has also trialed Myrbetriq with diminishing effect and was recommended to start Enablex 15mg daily at her last visit in February 2021, but she avoided starting this medication because of the dementia risk. Currently the patient reports leakage constantly throughout the day. She reports leakage with and without urge. She also has leakage with cough, laugh, sneeze and even turning her body a certain way.She is unable to be sexually active because leaking is severe. She using 1-2 overnight incontinencepads per day. She gets up at least once per night with an urge and has leaking on those occasions. She does not wake up wet. She denies ABL and symptomatic prolapse at this time. Goals for this visit 1. Hoping to find an alternative Urinary tract history Patient denies history of recurrent urinary tract infection. Patient denies history of pyelonephritis. Patient denies history of urinary tract abnormality. Patient denies history of nephrolithiasis. Patient denies history of hematuria. Bladder irritants: Fluid intake: 2 cups of coffee, 2 glasses water, 1-2 beers a few nights per week, diet Pepsi rarely, 2 cans seltzer per day, ~48-64 oz per day Caffeine intake: 2 coffees per day Cigarette smoking (packs, time, if quit when): never Alcohol: beer occasional Bladder Function Urinary incontinence: yes ICIQ-UI Short Form How often do you leak urine? Never 0 About once a week or less often 1 2-3 times a week 2 About once a day 3 Several times a day 4 5 All the time 5 How much urine do you usually leak? None 0 A small amount 1 2 A moderate amount 2 A large amount 3 Overall, how much does leaking interfere with your everyday life? 5 (0 not at all, 10 a great deal) ICIQ Sum the scores: 12 When does urine leak? (Check all that apply) Never - Urine does not leak x Leaks before you can get to the toilet x Leaks when you cough or sneeze Leaks when you are asleep x Leaks when you are physically active/exercising Leaks when you have finished urinating or are dressed x Leaks for no obvious reason Leaks all the time Pad use (per day): 2/day Pad type: Overnight pad Daytime voids: 4 times per day Nocturia: 1x/night Previous urinary incontinence treatment (Medical/Behavioral/Surgical): Mirabegron currently on 50mg/daily Storage symptoms Urinary frequency x Nocturia x Stress urinary incontinence - leakage with exertion, cough/sneeze x Urge urinary incontinence - leakage preceded immediately by urge to void Noctural enuresis - NOT IN ASSOCIATION WITH URGE Continuous urinary leakage Other: (e,g. giggle, intercourse-related) Bladder sensation x Normal - aware of filling and increased sensation up to desire to void Increased - feels an early and persistent need to void Reduced - aware of filling but NOT definite desire to void Absent - NO sensation of filling or need to void Non-specific - No specific bladder symptoms during filling or void Voiding symptoms x None Slow stream Spraying Intermittent stream - stop/start on > 1 occasion during void Straining - muscular effort to initiate, maintain OR improve stream Terminal dribble - prolonged final part of void Feeling of incomplete emptying Pelvic Organ Prolapse (POP) Any personally see or feel a vaginal bulge? no What precipitates prolapse or symptoms of prolapse? n/a Previous treatment for POP (physical therapy, pessary, surgery)?: Pessary cause incomplete bladder emptying (200cc) Bowel Function Fecal incontinence (yes/no): no Number of fecal incontinent episodes (day/week): n/a Number of bowel movements (day/week): Daily, sometimes more than once a day Defecatory Dysfunction: Symptom Presence Symptom Presence NONE x Incomplete Emptying Straining Infrequent stools (<3 week) Splinting Abdominal discomfort Loose stools Defecatory urgency Hard stools Other Sexual Function Active?: Not currently sexually active due to leaking Pain with intercourse?: Not previously If yes, insertional/Deep? n/a Desire to retain sexual function? yes Past Medical History: Diagnosis Date ??? Asthma ??? BMI 40.0-44.9, adult ??? COPD (chronic obstructive pulmonary disease) ??? Depression ??? Depression ??? Diabetes with retinopathy ??? DJD (degenerative joint disease) ??? Fibromyalgia ??? Hyperlipidemia ??? Hypertension ??? Hypothyroidism Past Surgical History: Procedure Laterality Date ??? BREAST LUMPECTOMY ??? CARPAL TUNNEL RELEASE Right ??? CHOLECYSTECTOMY ??? ORIF FEMUR DECOMPRESSION Right ??? TONSILLECTOMY OB History Para Term AB Living 2 2 0 0 0 0 SAB IAB Ectopic Multiple Live Births 0 0 0 0 0 # Outcome Date GA Lbr Santana/2nd Weight Sex Delivery Anes PTL Lv 2 Para Vag-Spont 1 Para Vag-Spont Outpatient Medications Marked as Taking for the 05/05/21 encounter (Office Visit) with Jt Hood, DO Medication Sig Dispense Refill ??? Jardiance 25 mg Tablet ??? ketoconazole (Nizoral) 2 % Cream APPLY EXTERNALLY TO THE AFFECTED AREA OF FEET LESIONS TWICE DAILY UNTIL RASH IS GONE ??? Myrbetriq 50 mg Tablet Sustained Release 24 hr ??? oxybutynin (DITROPAN-XL) 5 mg Tablet Extended Rel 24 hr Take 1 tablet by mouth daily. 90 tablet6 ??? citalopram (CELEXA) 20 mg tablet Take 20 mg by mouth daily. ??? levothyroxine (SYNTHROID) 25 mcg tablet Take 25 mcg by mouth daily. ??? insulin glargine (LANTUS) 100 unit/mL injection 42 units, SQ, qpm ??? insulin lispro (HUMALOG) 100 unit/mL injection 100 unit(s), SQ, as directed,with food ??? montelukast (SINGULAIR) 10 mg tablet ??? ALBUTEROL SULFATE INHL 2 puffs , Inh, q 6 hours prn ??? lisinopril (PRINIVIL;ZESTRIL) 20 mg tablet 10mg, PO, Once daily ??? aspirin (BABY ASPIRIN) 81 mg chewable tablet ??? traZODone (DESYREL) 100 mg tablet ??? pravastatin (PRAVACHOL) 40 mg tablet Allergies Allergen Reactions ??? Influenza Virus Vaccine, Specific Other reaction(s): NAUSEA/VOMITING ??? Sulfamethoxazole-Trimethoprim CIS - Nausea/Vomiting ??? Trimethoprim Other reaction(s): trimethoprim Social History Socioeconomic History ??? Marital status: Spouse name: Not on file ??? Number of children: Not on file ??? Years of education: Not on file ??? Highest education level: Not on file Occupational History ??? Not on file Tobacco Use ??? Smoking status: Never Smoker ??? Smokeless tobacco: Never Used ??? Tobacco comment: passive smoke exposure Vaping Use ??? Vaping Use: Never used Substance and Sexual Activity ??? Alcohol use: Not on file ??? Drug use: Not on file ??? Sexual activity: Not on file Other Topics Concern ??? Not on file Social History Narrative ??? Not on file Social Determinants of Health Financial Resource Strain: Not on file Food Insecurity: Not on file Transportation Needs: Not on file Physical Activity: Not on file Housing Stability: Not on file Family History Problem Relation Age of Onset ??? Heart Defect Mother ??? Lung Cancer Mother ??? Lymphoma Father Family history: denies history of gynecologic cancer ROS: Review of all other systems negative except for those mentioned above or indicated below: System Symptom Presence Constitutional Weight Loss Weight gain Eyes History of glaucoma ENT/Mouth Mouth sores/Dry mouth Cardiovascular Chest pain Leg swelling Respiratory Wheezing SOB COPD and asthma GI Nausea/vomiting Constipation Abdominal pain Skin/Breast Breast masses Rash/ulcer Musculoskeletal Muscle weakness Trouble Walking Neurological Dizziness/falling Numbness Psychiatric Depression Controlled with Citalopram Anxiety Endocrine Abnormal thirst Menopause: Y/N / age? 49yo Hot flashes no Hematologic Frequent bruising History of blood transfusions no Blood clots (DVT / PE) Following cholecystectomy, left leg DVT Prior problems w/ anesthesia no Last Pap smear: 07/02/2019: NILM, HR HPV neg Outside medical records reviewed: yes Data reviewed (images/urodynamic studies): none available To further delineate patient's urinary symptoms, a urine dip test and postvoid residual via bladderscanner were obtained. US PVR: 14cc OBJECTIVE: BP 139/57 Pulse 73 Temp 36.4 ??C (97.6 ??F) (Temporal) Resp 16 Ht 160 cm (5' 3) Wt 100.7kg (222 lb) SpO2 97% BMI 39.33 kg/m?? General: normal appearing female, pleasant mood, normal speech Skin: skin of abdomen/pelvis normal Respiratory: clear to auscultation bilaterally Neuro: no paraspinous tenderness; saddle sensory function (S2-4) intact in the pelvic area to touch Cardiac: regular rate and rhythm, no appreciated murmurs Gastrointestinal: no palpable masses/organomegaly, soft/nontender, no appreciable hernia Musculoskeletal: levator ani tone (0-5): 2, levator ani contraction (0-5): 5, No levator tenderness; lower extremity motor 5/5 bilaterally Pelvic: Cough stress test (empty supine): POSITIVE External Genitalia: Vulva, [place]'s and Bartholin glands normal, urethra without tenderness or mass Vagina: Atrophic epithelium (yes/no)?: mild Discharge?: none Cervix: Present, no lesions Bimanual (uterus/adnexa): no adnexal masses or tenderness, small anteverted uterus Rectovaginal: Enterocele: none Rectocele: small Anal sphincter: Resting tone: 3/5 Anal wink: present External anal sphincter: intact POP Q Measurements: Aa -1 Ba -1 C -5 GH 2.5 3 PB 2.5 2.5 TVL 11 Ap 0 Bp 0 D -6 Impression: Ms. Garner is a .65 y.o. woman with: ?? Mixed Urinary incontinence with suspected Intrinsic sphincter deficiency ?? Asymptomatic uterovaginal prolapse Recommendations: I reviewed the anatomy and physiology of urinary continence. We discussed options for management including: Continued observation, pelvic floor exercises (supervised or unsupervised), pessary and/or surgery. Based on the patients expressed goals for management I have recommended the following: ?? Urinary Incontinence ?? Continue Mirabegron ?? Bladder diary reviewed and will return to office ?? Urodynamics to assess for ISD and candidacy for urethral bulking injections ?? We reviewed timed voiding, urge suppression, bladder retraining and dietary modifications for urge ?? Currently asymptomatic stage 2 support ?? Has tried a pessary in the past for incontinence, but this caused retention ?? Continue observation The patient was evaluated under the supervision of Dr. Lemus, attending Urogynecologist. Jt Hood DO Division of Female Pelvic Medicine/Reconstructive Surgery CC: MD Rocio Herman * Rebekah Wasserman CCMA - 05/05/2021 4:00 PM EST This patient was seen in the OBGYN clinic today. I was present as bun panner for the sensitive partsof her examination. Examination chaperoned by Rebekah M Lisy, CCMA. * Chano Lemus MD - 05/05/2021 4:00 PM EST I have seen the patient in person and reviewed the fellow's above history and I agree with the details as written. The assessment and plan were formulated in discussion with me and I agree with them as documented. Pertinent History: Ms. Garner is a 65 y.o. woman with symptoms of mixed urinary incontinence, incontinence with sex. She has been taking mirabegron for urge UI symptoms. Pertinent Exam: I discussed Dr. Hood's examination with him at the time of the visit, met the patient but did not repeat the examination. Major issues addressed: Mixed urinary incontinence, including incontinence with sex. Positive emptybladder cough stress test today, suggestive of intrinsic sphincter deficiency. Relatively asymptomatic cystocele, rectocele. Increased BMI, which is a risk factor for UI and prolapse. Plan: I agree with plans for a baseline bladder diary and setting up urodynamic testing to see if she is a candidate for a urethral bulking agent. Continue mirabegron for now. CHANO LEMUS MD documented in this encounter Plan of Treatment Not on file documented as of this encounter Procedures Procedure Name Priority Date/Time Associated Diagnosis Comments BLADDER SCANNER Routine 05/05/2021 Mixed stress and urge urinary incontinence documented in this encounter Results * Bladder Scanner (05/05/2021) Bladder Scan (mL) 14 mL Chano Lemus MD URO PROC W/O RFL ORD ERABLES documented in this encounter Visit Diagnoses Diagnosis Mixed stress and urge urinary incontinence Mixed incontinence urge and stress (male)(female) documented in this encounter Care Teams Associate Financial Advisor Relationship Specialty Start Date End Date Rocio Mo MD [address] [place] [address] PCP - General Family Medicine 07/11/15 documented as of this encounter
--- OUTSIDE RECORDS SUMMARY | 2024-02-21 21:44 | XMS_ITS | Encounter Summary ---
Author Organization [facility] [place] [address] Care Team Providers Care Head Wood Grinder Name Role Phone Rocio Mo MD Primary Care Provider [phone] Reason for Visit * Reason Comments Skin Check * Consultation (Routine) - Closed Specialty Diagnoses / Procedures Referred By Dhaval t Referred To Contact Dermatology Diagnoses derm issue Rocio Mo MD [address] [facility] [address] [place] [address] Patrick Saxena MD [address] [place] [address], [facility] [place] [place] [address] Referral ID Status Reason Start Date Expiration Date V isits Requested Visits Authorized [id number] Closed Consult, Test & Treat Connection Center 07/12/2015 07/11/2016 1 1 Encounter Details Date Type Department Care Team (Late st Contact Info) Description 07/25/2015 9:15 AM EST Office Visit Dermatology at [address] [address] Ptarick Saxena MD [address] [place] [address], [facility] [place], [place] [id number] Solar lentigo (Primary Dx); Seborrheic keratosis Social History Tobacco Use Types Packs/Day Years Used Date Smoking Tobacco: Never Smokeless Tobacco: Never Comments:passive smoke expos ure Sex and Gender Information Value Date Recorded Sex Assigned at Not on file Gender Identity Not on file Sexual Orientation Not on file documented as of this encounter Progress Notes * Patrick Saxena MD - 07/25/2015 9:52 AM EST Problem: Skin check. Preeti is a 60-year-old woman who would like to have a skin checkup. She recalls having had lots of sunburns growing up. She has no personal or family history of skin cancer or melanoma. During a recent physical examination with Rocio Mo, concern was raised about an atypical pigmented lesion on the presternal chest. Physical examination reveals a pleasant, fair skinned, 60-year-old woman who has a hyperkeratotic papule, pinkish in the central chest, with some surrounding base pigmentation, and a junctional pattern surrounding it and extending inferiorly from it. It appears to be consistent with an irritated and partially excoriated seborrheic keratosis, but the differential could include possible malignant melanocytic neoplasm. Otherwise, examination of the head and the neck, the chest, the back, hands, arms, forearms, thighs, and calves reveals benign solar lentigos, benign nevi, several seborrheic keratoses. Assessment and Plan: 1. Probable irritated seborrheic keratosis, atypical appearance, presternal chest. a. Today shave biopsy obtained of inferior portion of this and submitted for pathologic analysis. b. Await biopsy results. c. We will notify the patient of these in three to four days. d. Wound care instructions and supplies given. 2. Benign skin examination. a. Patient reassured about the otherwise benign skin examination. b. Return to clinic here p.r.n. for new lesions/concerns. COPY: Rocio Mo M.D. documented in this encounter Plan of Treatment Not on file documented as of this encounter Procedures Procedure Name Priority Date/Time Associated Diagnosis Comments SURGICAL PATHOLOGY REPORT Routine 07/25/2015 12:00 PM EST documented in this encounter Results * Surgical Pathology Report (07/25/2015 12:00 PM EST) Final Diagnosis [id number] ?Location: [facility] The signing pathologist has (i) examined the relevant preparation(s) for the specimen(s) and (ii) rendered or confirmed the diagnosis(es). . ?Surgical Pathology DIAGNOSIS Skin, presternal chest, shave biopsy: - Lentigo and associated incidental melanocytic nevus. ??See Discussion. 07/26/15 BJM 07/29/15 Verified by: ? Oscar MEZA, Rashel Goss ?Dermatopathologist ?(Electronic Signature) The attending pathologist whose signature appears on this report has reviewed all diagnostic slides and has edited the gross and/or microscopic portion of the report in rendering the final pathologic diagnosis. DISCUSSION The majority of the lesion demonstrates features of a lentigo. ??In addition, there is a subtle lentiginous compound melanocytic nevus, completely removed in the planes of sections examined. ??A Melan-A immunohistochemical stain highlights the solitary melanocytes of the lentigo and the melanocytic nevus. ??No atypical melanocytic neoplasm is identified in these sections. This case has been reviewed by Dr. Modi, who concurs with the diagnosis. Multiple deeper levels have been examined. ADDITIONAL STUDIES Immunohistochemistry Studies: Formalin-fixed, paraffin-embedded tissue sections are studied using the polymer technique with appropriate positive and negative controls. ??These IHC studies provide the pathologist with adjunctive diagnostic information. Antibody specificity has been verified by testing antibodies on a series of in-house tissues with known immunohistochemical performance characteristics. The clinical interpretation of any antibody positive staining or its absence is evaluated within the context of clinical presentation, morphology, histopathological criteria and other diagnostic tests. Block ?Antibody ? Result (Positive/Negative) A1 ? Melan-A ?Highlights solitary melanocytes of lentigo; ?highlights melanocytic nevus. CLINICAL INFORMATION Specimen Submitted: A - Presternal chest, shave Clinical History: History of growing scabbing pigmented lesion Clinical Diagnosis: Seborrheic keratosis rule out MM SPECIMEN PROCESSING A - Labeled/Fixative: Patient demographics, formalin. Quantity/Size: Single, 0.8 x 0.7 x 0.1 cm. Tissue Description: Shave of myers wrinkled skin with patchy pigmentation. Sections/Processing: Inked and quadrasected. (T1) ??ksb 07/29/2015 8:26 AM EST [facility] SPECIMEN FROM SKIN / Unknown 07/25/2015 12:00 PM EST 07/25/2015 12:00 PM EST Patrick Saxena MD PATHOLOGY/CYTOLOGY O RDERABLES [facility] [place] [address] documented in this encounter Visit Diagnoses Diagnosis Solar lentigo- Primary Other dyschromia Seborrheic keratosis Other seborrheic keratosis documented in this encounter Care Teams Head Wood Grinder Relationship Specialty Start Date End Date Rocio Mo MD [address] [facility] [address] [place] [address] PCP - General Family Medicine 07/11/15 documented as of this encounter
--- OUTSIDE RECORDS SUMMARY | 2024-02-21 21:44 | XMS_ITS | Encounter Summary ---
Author Organization [facility] [place] [address] Care Team Providers Care Crop Farmers Name Role Phone Dhruv Timmons APRN Primary Care Provider [phone] Encounter Details Date Type Department Care Team (Late st Contact Info) Description 01/01/2014 Orders Only Obstetrics and Gynecology at [facility] [place] [address] Viviana Ma pediatric rn UTI (urinary tract infection) (Primary Dx) Social History Tobacco Use Types Packs/Day Years Used Date Smoking Tobacco: Never Smokeless Tobacco: Never Comments:passive smoke expos ure Sex and Gender Information Value Date Recorded Sex Assigned at Not on file Gender Identity Not on file Sexual Orientation Not on file documented as of this encounter Progress Notes * Viviana Ma, RN - 01/01/2014 11:01 AM EDT Insurance would not cover Enablex, Oxybutynin ER [address] Wong. documented in this encounter Plan of Treatment Not on file documented as of this encounter Visit Diagnoses Diagnosis Acute UTI (urinary tract infection)- Primary Urinary tract infection, site not specified documented in this encounter Care Teams Crop Farmers Relationship Specialty Start Date End Date Dhruv Timmons APRN [address] [place] [address] PCP - General 05/16/10 07/10/15 documented as of this encounter
--- OUTSIDE RECORDS SUMMARY | 2024-02-21 21:44 | XMS_ITS | Encounter Summary ---
Author Organization [facility] Address [address] [place] [address] Care Team Providers Care Embedded Developer Name Role Phone Unknown, Provider Primary Care Provider Encounter Details Date Type Department Care Team (Late st Contact Info) Description 07/22/2021 Lab Requisition [facility] Pathology & Laboratory Medicine - [facility] [address] [place] [address] Outr Resulting Lab, Provider Social History Tobacco Use Types Packs/Day Years Used Date Smoking Tobacco: Never Assessed Sex and Gender Information Value Date Recorded Sex Assigned at Not on file Gender Identity Not on file Sexual Orientation Not on file documented as of this encounter Plan of Treatment Not on file documented as of this encounter Procedures Procedure Name Priority Date/Time Associated Diagnosis Comments ZZCOVID-19 TEST [facility] PCR Today 07/21/2021 13:30 EST COVID-19 TESTING Routine 07/21/2021 13:3 0 EST documented in this encounter Results * COVID-19 TEST [facility] PCR (07/21/2021 13:30 EST) Swab 07/21/2021 13:3 0 EST 07/22/2021 21:50 EST Provider Outr Resulting Lab MICROBIOLOGY - GENERAL ORDERABLES [facility] [address] [place] [address] * (ABNORMAL) COVID-19 TESTING (07/21/2021 13:30 EST) COVID-19 rt-PCR Result Positive( AA) Negative 07/23/2021 12:09 EST [facility] Comment: This test has not been FDA cleared or approved. This test has been authorized by FDA under an EUA for use by authorized laboratories. This test has been authorized only for detection of nucleic acid from 2019-nCoV, not for any other viruses or pathogens. This test is only authorized for the duration of the declaration that circumstances exist justifying the authorization of emergency use of in vitro diagnostic tests for detection and/or diagnosis of 2019-nCoV under section 564(b)(1) of Act, 21 U.S.C ?? 360bbb-3(b) (1), unless the authorization is terminated or revoked sooner. Testing was performed using the mingo SARS-CoV-2 assay ([employer] on the Imngo 6800 System Performing Lab Mingo [address] [facility] 07/23/2021 12:09 EST [facility] Swab 07/21/2021 13:3 0 EST 07/22/2021 21:50 EST Provider Outr Resulting Lab MICROBIOLOGY - GENERAL ORDERABLES [facility] [address] [place] [address] documented in this encounter Visit Diagnoses Not on filedocumented in this encounter Additional Health Concerns Infection Onset Date Last Indicated Resolved Time COVID-19 07/21/2021 07/21/2021 08/10/2021 22:1 5 EST documented as of this encounter Care Teams Embedded Developer Relationship Specialty Start Date End Date Unknown, Provider, PCP - General 04/28/15 documented as of this encounter
--- OUTSIDE RECORDS SUMMARY | 2024-02-21 21:44 | XMS_ITS | Encounter Summary ---
Author Organization [facility] Address [address] [place] [address] Care Team Providers Care Sharepoint Net Developer Name Role Phone Unknown, Provider Primary Care Provider Encounter Details Date Type Department Care Team (Late st Contact Info) Description 06/29/2020 Lab Requisition [facility] Pathology & Laboratory Medicine - [facility] [address] [place] [address] Outr Resulting Lab, Provider Social History Tobacco [...] Procedure Name Priority Date/Time Associated Diagnosis Comments HOLD SST Today 06/29/2020 12:32 EST LYME AB Today 06/29/2020 12:32 EST RHEUMATOID FACTOR Today 06/29/2020 12: 32 EST documented in this encounter Results * HOLD SST (06/29/2020 12:32 EST) Hold Hold 06/29/2020 22:01 EST [facility] Blood VENOUS BLOOD / Unknown 06/29/2020 12:32 EST 06/29/2020 20:53 EST Provider Outr Resulting Lab LAB INFO SER VICE AND SUPPORT & PHONE RESULT [facility] [address] [place] [address] * LYME AB (06/29/2020 12:32 EST) Lyme Ab Negative Negative 06/30/2020 10:42 EST [facility] Comment:New 3rd generation a ssay in use 12/02/2019 Blood VENOUS BLOOD / Unknown 06/29/2020 12:32 EST 06/29/2020 20:53 EST Provider Outr Resulting Lab IMMUNOLOGY A ND SEROLOGY ORDERABLES [facility] [address] [place] [address] * RHEUMATOID FACTOR (06/29/2020 12:32 EST) Pathologist [facility] Rheumatoid Factor <8.6 <12.0 IU/mL 06/29/2020 21:16 EST [facility] Blood VENOUS BLOOD / Unknown 06/29/2020 12:32 EST 06/29/2020 20:53 EST Provider Outr Resulting Lab CHEMISTRY & BLOOD GAS ORDERABLES [facility] [address] [place] [address] documented in this encounter Visit Diagnoses Not on filedocumented in this encounter Additional Health Concerns Infection Onset Date Last Indicated Resolved Time COVID-19 07/21/2021 07/21/2021 08/10/2021 22:1 5 EST documented as of this encounter Care Teams Sharepoint Net Developer Relationship Specialty Start Date End Date Unknown, Provider, PCP - General 04/28/15 documented as of this encounter
--- OUTSIDE RECORDS SUMMARY | 2024-02-21 21:44 | XMS_ITS | Encounter Summary ---
Author Organization [facility] Address [address] [place] [address] Care Team Providers Care Drilling Engineering Manager Name Role Phone Unknown, Provider Primary Care Provider Encounter Details Date Type Department Care Team (Late st Contact Info) Description 07/03/2019 Lab Requisition [facility] Pathology & Laboratory Medicine - [facility] [address] [place] [address] Rocio Mo MD [address] [place] [address] [address] [place] [address] Encounter for other general examination Social History Tobacco Use Types Packs/Day Years Used Date Smoking Tobacco: Never Assessed Sex and Gender Information Value Date Recorded Sex Assigned at Not on file Gender Identity Not on file Sexual Orientation Not on file documented as of this encounter Plan of Treatment Not on file documented as of this encounter Procedures Procedure Name Priority Date/Time Associated Diagnosis Comments PAP TEST Today 07/01/2019 Encounter for other general examination HPV DNA DETECTION WITH GENOTYPING, PCR Today 07/01/2019 Encounter for other general examination documented in this encounter Results * HUMAN PAPILLOMAVIRUS (HPV) DETECTION-HIGH RISK TYPES (07/01/2019) HPV other High Risk types, PCR Negative Negative 07/10/2019 14:22 EST [facility] Comment:No E6 or E7 mRNA is detected from HPV types 16,18,31,33,35,39,45,51,52,56,58,59,66, and 68 by grader marker mediated amplification. Papanicolaou smear specimen (specimen) CERVIX UTERI STRUCTURE / Unknown 07/01/2019 07/09/2019 12:17 EST Rocio Mo MD MICROBIOLOGY - GENE RAL ORDERABLES [facility] [address] [place] [address] * PAP TEST (07/01/2019) Specimens A. 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 07/10/2019 14:22 [facility] Attestation . By the signature below, the attending physician certifies that they have personally conducted a gross and/or microscopic examination of the described specimens and rendered or confirmed the above diagnosis. 07/10/2019 14:22 [facility] at 1422 Clinical History NONE 07/10/19 14:22 [facility] HPV The result for the Human Papillomavirus (HPV) Detection-High Risk Types is Negative. No E6 or E7 mRNA is detected from HPV types 16,18,31,33,35,39 ,45,51,52,56,58,5 9,66, and 68 by grader marker mediated amplification.Gloria ting was performed on specimen [id number] and was resulted on 07/10/2019 1419 EST by ALAINA, LAB INSTRUMENT RESULTS IN 07/10/2019 14:22 [facility] Scanned Images 07/10/2019 14:22 [facility] Papanicolaou smear specimen (specimen) CERVIX UTERI STRUCTURE / Unknown 07/01/2019 07/03/2019 10:45 EST Rocio Mo MD PATHOLOGY ORDERABLE S [facility] [address] [place] [address] documented in this encounter Visit Diagnoses Diagnosis Encounter for other general examination documented in this encounter Additional Health Concerns Infection Onset Date Last Indicated Resolved Time COVID-19 07/21/2021 07/21/2021 08/10/2021 22:1 5 EST documented as of this encounter Care Teams Drilling Engineering Manager Relationship Specialty Start Date End Date Unknown, Provider, PCP - General 04/28/15 documented as of this encounter
--- OUTSIDE RECORDS SUMMARY | 2024-02-21 21:44 | XMS_ITS | Encounter Summary ---
Author Organization [facility] [place] [address] Care Team Providers Care Foreign Law Consultant Name Role Phone Dhruv Timmons APRN Primary Care Provider [phone] Reason for Visit * Reason Comments Medication Refill Encounter Details Date Type Department Care Team (Late st Contact Info) Description 08/05/2014 Refill Obstetrics [place] [address] Lance Wong MD [facility] [address] OBSTETRICS [place] [address] Social History Tobacco Use Types Packs/Day Years Used Date Smoking Tobacco: Never Smokeless Tobacco: Never Comments:passive smoke expos ure Sex and Gender Information Value Date Recorded Sex Assigned at Not on file Gender Identity Not on file Sexual Orientation Not on file documented as of this encounter Plan of Treatment Not on file documented as of this encounter Visit Diagnoses Not on filedocumented in this encounter Care Teams Foreign Law Consultant Relationship Specialty Start Date End Date Dhruv Timmons APRN [address] [place] [address] PCP - General 05/16/10 07/10/15 documented as of this encounter
--- OUTSIDE RECORDS SUMMARY | 2024-02-21 21:44 | XMS_ITS | Encounter Summary ---
Author Organization [facility] Address [address] [place] [address] Care Team Providers Care Slicer Machine Operator Name Role Phone Unavailable Primary Care Provider Unavailabl e Encounter Details Date Type Department Care Team (Late st Contact Info) Description 07/09/[address] [facility] [phone] Georgi Mo MD [address] [place] [id number] Social History Tobacco Use Types Packs/Day Years Used Date Smoking Tobacco: Never Assessed Sex and Gender Information Value Date Recorded Sex Assigned at Not on file Gender Identity Not on file Sexual Orientation Not on file documented as of this encounter Plan of Treatment Not on file documented as of this encounter Procedures Procedure Name Priority Date/Time Associated Diagnosis Comments PAP TEST- RESULT ONLY Routine 07/09/2012 0:00 EST documented in this encounter Results * PAP TEST- RESULT ONLY (07/09/2012 0:00 EST) Pathology Report: CYTOPATHOLOGY REPORT Reports generated via electronic interface contain original data; however they are lacking the format of the original report. Caution should be taken when reading/interpreti ng unformatted reports. Name: ? PREETI GARNER ? Accession #: ? [id number] ? : ? 1955 (Age: 57) ??F ?Collect Date: ? 07/09/2012 ? Location: ? [facility] ? Receive Date: ? 07/11/2012 ? Provider: GEORGI MO MD Copy to: ? Final Report SPECIMEN ADEQUACY ? Satisfactory for Evaluation - transformation zone component present GENERAL CATEGORIZATION ? Negative for Intraepithelial Lesion or Malignancy ?? Menstrual/Pregnanc y Status: ??Post Menopausal Specimen/Source: ??Pap Test, Cervix/Endocervix, ThinPrep Imaging System with manual evaluation Document reviewed and electronically signed by: ? HERMELINDA Camarillo(ASCP) ? Report ??Date: 07/17/2012 14:18 HPV with Pap Test ? Date Ordered: ? 07/17/2012 ? Status: ?? Signed Out ?Date Complete: ? 07/18/2012 ? By: ??System Interface ? Date Reported: ? 07/18/2012 ? Interpretation RESULT: Negative for HPV. No E6 or E7 mRNA is detected from HPV types 16,18,31,33,35, 39,45,51,52,56,58, 59,66, and 68 by tennis desk team member mediated amplification. Comments Document reviewed and electronically signed by: ? System Interface ? Report date: 07/18/2012 By the signature above, the attending physician certifies that he/she has personally conducted a gross and/or microscopic examination of the described specimens and rendered or confirmed the above diagnosis. End of Report [facility] 07/09/2012 07/11/2012 Georgi Mo MD PATHOLOGY ORDERABLE S [facility] [address] [place] [address] documented in this encounter Visit Diagnoses Not on filedocumented in this encounter
--- OUTSIDE RECORDS SUMMARY | 2024-02-21 21:44 | XMS_ITS | Encounter Summary ---
Author Organization [facility] [place] [address] Care Team Providers Care Tool Turret Lathe Set Up Operator Name Role Phone Brunilda Hoyt APRN Primary Care Provider [phone] Reason for Visit * Reason Comments Vaginal Prolapse Urinary Incontinence Encounter Details Date Type Department Care Team (Late st Contact Info) Description 12/31/2013 1:00 PM EDT Office Visit Obstetrics [place] [address] Duane Wong MD [facility] [address] OBSTETRICS [place] [address] Unspecified urinary incontinence; Prolapse of vaginal maurice; Mixed stress and urge urinary incontinence Discharge Disposition: Home Social History Tobacco Use Types Packs/Day Years Used Date Smoking Tobacco: Never Smokeless Tobacco: Never Comments:passive smoke expos ure Sex and Gender Information Value Date Recorded Sex Assigned at Not on file Gender Identity Not on file Sexual Orientation Not on file documented as of this encounter Last Filed Vital Signs Vital Sign Reading Time Taken Comments Blood Pressure 130/82 12/31/2013 2:04 PM EDT Pulse 80 12/31/2013 2:04 PM EDT Temperature - - Respiratory Rate - - Oxygen Saturation - - Inhaled Oxygen Concentration - - Weight 110.5 kg (243 lb 8 oz) 12/31/2013 2:04 PM EDT Height 160 cm (5' 3) 12/31/2013 2:04 PM EDT Body Mass Index 43.13 12/31/2013 2:04 PM EDT documented in this encounter Progress Notes * Duane Wong MD - 12/31/2013 1:59 PM EDT Female Pelvic Medicine and Reconstructive Surgery @ [facility] Patient Name: Preeti Ganrer Patient Primary Care Provider: BRUNILDA HOYT APRN Referring Provider: Rocio Mo Chief Complaint: Urinary incontinence History of Present Illness: Ms. Garner is a 58 y.o. old para 2 woman, seen at the kind request of Rocio Mo. She has in the past seen Dr. Brooklynn Lucas as well as Dr. Jaxon Valdez for this problem. She reports that her leakage is getting worse over the past year, getting sick wearing an overnight pad every day (wear 2-3 pads per day). Will leak urine when coughing, getting into the car, jump roping. More bothersome, she will also leak larger amounts just standing up from a chair associated with an urge. Will leak in the morning when she gets up to go to the bathroom (this morning shedrenched everything on the way to the bathroom). Takes Trazadone and sleeps through the night butshe thinks this is why she is incontinent in the mornings. Been experiencing these symptoms for thepast 5 years but getting worse this year (more volume when leaks to now it is a gush of fluid). Been doing Kegel exercises every day to try to help but they cause pain and put pressure on her backbone (another doctor attributed to arthritis in spine). Goals for visit: 1. Do not dare to go on dates or be intimate with anyone because of the fear from incontinence Bladder Function Urinary incontinence: yes No. episodes: 5x/ day Pad use (per day): 2-3 Pad type: Overnight regular pads Daytime voids: 8x/ day Nocturia: Does not wake up to urinate Previous urinary incontinence treatment (Medical/Behavioral/Surgical): no Storage symptoms x Urinary frequency Nocturia x Stress urinary incontinence - leakage with exertion, cough/sneeze x Urge urinary incontinence - leakage preceded immediately by urge to void Noctural enuresis - NOT IN ASSOCIATION WITH URGE Continuous urinary leakage x Other: (e,g. giggle, intercourse-related) Bladder sensation x Normal - aware of filling and increased sensation up to desire to void Increased - feels an early and persistent need to void Reduced - aware of filling but NOT definite desire to void Absent - NO sensation of filling or need to void Non-specific - No specific bladder symptoms during filling or void Voiding symptoms None Slow stream Spraying x Intermittent stream - stop/start on > 1 occasion during void Straining - muscular effort to initiate, maintain OR improve stream Terminal dribble - prolonged final part of void Feeling of incomplete emptying Bladder irritants: Caffeine intake: Coffee 6-8 cups/ day Cigarette smoking (packs, time, if quit when): no Alcohol: no Pelvic Organ Prolapse (POP) Any personally see or feel a vaginal bulge? no What precipitates prolapse or symptoms of prolapse? no Extent of protrusion: na Previous treatment for POP (physical therapy, pessary, surgery)?: Pessary, stopped using it due to urinary retention Bowel Function Fecal incontinence (yes/no): no Number of fecal incontinent episodes (day/week): na Number of bowel movements (day/week): 1-2x/ every other day Defecatory Dysfunction: Symptom Presence Symptom Presence NONE Incomplete Emptying Straining x Infrequent stools (<3 week) Splinting Abdominal discomfort Loose stools Defecatory urgency Hard stools x Other Sexual Function Active?: no Pain with intercourse?: na If yes, insertional / deep?: na Desire to retain sexual function?: yes Change or concern regarding libido?: na Gynecologic/Obstetric History: Last PAP smear: Last year, all normal in past Last mammogram: Last year, normal in past Past Medical History Diagnosis Date ??? Diabetes with retinopathy ??? BMI 40.0-44.9, adult ??? Hypothyroidism ??? Hyperlipidemia ??? Hypertension ??? Depression ??? Fibromyalgia ??? Depression ??? DJD (degenerative joint disease) Past Surgical History Procedure Date ??? Cholecystectomy ??? Carpal tunnel release ??? Tonsillectomy ??? Breast lumpectomy Outpatient Prescriptions Marked as Taking for the 12/31/13 encounter (Office Visit) with Duane Wong MD Medication Sig Dispense Refill ??? citalopram (CELEXA) 20 mg tablet Take 20 mg by mouth daily. ??? amitriptyline (ELAVIL) 25 mg tablet Take 25 mg by mouth nightly. ??? levothyroxine (SYNTHROID) 25 mcg tablet Take [...] 40 mg tablet Allergies Allergen Reactions ??? Sulfamethoxazole-Trimethoprim CIS - Nausea/Vomiting History Social History ??? Marital Status: , was with female partner for 5 years. She 2 years ago and has not been with anyone since. Prior to that relationship she was with men Spouse Name: N/A Number of Children: 2--two sons (ages 43, 46). One son lives with her (autistic?), one lives in [place]. ??? Years of Education: N/A Occupational History ??? On disability. 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 Social History Main Topics ??? Smoking status: Never Smoker ??? Smokeless tobacco: Never Used Comment: passive smoke exposure ??? Alcohol Use: Not on file ??? Drug Use: Not on file ??? Sexually Active: Not on file Other Topics Concern ??? Not on file Social History Narrative ??? No narrative on file No family history on file. Family history: Denies history of gynecologic cancer. Mother and 3 sisters had hysterectomies (not sure why). Mother- age 73, COPD/ lung cancer Father- 39 yo, Hodgkins Sister- 25 yo, alcohol poisoning 2 sisters- one alcoholic, other sister COPD ROS: Review of all other systems negative except for those mentioned above or indicated below: System Symptom Presence Constitutional Weight Loss Weight gain Fatigue x Eyes Vision changes ENT/Mouth Sinus problems Mouth sores Cardiovascular Chest pain CASTA[place]EDA Leg swelling x Heart palpitations x Respiratory Wheezing x Hemoptysis SOB X (asthma) Chronic cough x GI Nausea/vomiting Abdominal pain May be hip arthritis Musculoskeletal Muscle weakness x Skin/breast Pain in breast Discharge Masses Rash/ulcer Neurological Dizziness Numbness Trouble Walking Psychiatric Depression x Anxiety Endocrine Abnormal thirst Hot flashes Hematologic Frequent bruising no Blood clots (DVT / PE) Hospitalized for clot in leg (right after maria victoria) Prior problems w/ anesthesia no OBJECTIVE: Results for orders placed in visit on 12/31/13 POCT URINE DIPSTICK Component Value Range POC Sp [place] 1.010 1.002 - 1.030 POC pH, UA 5 5.0 - 8.5 POC Leuk, UA neg Negative - Negative POC Nitrite, UA neg Negative - Negative POC Protein, UA trace Negative - Negative mg/dL POC Glucose, UA norm Normal - Normal mg/dL POC Ketone, UA neg Negative - Negative POC Urobil, UA norm 0.2 - 1.0 mg/dL POC Bili, UA neg Negative - Negative POC Blood, UA neg Negative - Negative ale/uL Blood pressure 130/82, pulse 80, height 160 cm (5' 3), weight 110.451 kg (243 lb 8 oz). General: normal appearing female, pleasant mood, normal speech Skin: skin of abdomen/pelvis normal Respiratory: clear to auscultation bilaterally Neuro: no paraspinous tenderness; saddle sensory function (S2-4) intact in the pelvic area to touch Cardiac: regular rate and rhythm, no appreciated murmurs Gastrointestinal: no palpable masses/organomegaly, soft/nontender, no appreciable hernia Musculoskeletal: levator ani tone (0-5): 3, levator ani contraction (0-5): 4, absent levator tenderness; lower extremity motor 5/5 bilaterally Pelvic: Cough stress test (empty supine): positive External Genitalia: Vulva, Slater's and Bartholin glands normal, urethra without tenderness or mass Vagina: With Valsalva, the anterior vaginal wall comes 2 cm above the hymen, the posterior vagina wall comes to the level of the hymen, and the cervix/apex comes 5 cm above the hymen Atrophic epithelium (yes/no)?: yes Discharge?: none Cervix: Normal appearance Bimanual (uterus/adnexa): mobile, normal sized uterus POP Q Measurements: Aa -2 Ba -2 C -5 GH 4,4 PB 4,4 TVL 11 Ap 0 Bp 0 D -6 Impression: Ms. Garner is a .58 y.o. woman with: ?? Symptoms of mixed incontinence, urgency incontinence predominating. ?? Stae II, largely assymptomatic prolpase which is not likely impacting her incontinece in a tangible manner Recommendations: I reviewed the anatomy and physiology of prolapse and incontinence. We discussed options for management including: Continued observation, pelvic floor exercises (supervised or unsupervised), pessary and/or surgery. Based on the patients expressed goals for management I have recommended the following: ?? Patient will be started on Enablex 15 mg/d ?? Follow up visit in [facility] for bladder scan and symptom review DUANE WONG MD Division of Female Pelvic Medicine/Reconstructive Surgery CC: MONTY GUTIERREZ documented in this encounter Plan of Treatment Scheduled Orders Name Type Priority Associated Diagnoses Orde r Schedule Bladder Scanner PROCEDURE Routine Unspecified urinary incontinence Prolapse of vaginal maurice Ordered: 12/31/2013 documented as of this encounter Procedures Procedure Name Priority Date/Time Associated Diagnosis Comments POCT URINE DIPSTICK Routine 12/31/2013 Unspecified urinary incontinence Prolapse of vaginal maurice documented in this encounter Results * POCT urine dipstick (12/31/2013) POC Sp [place] 1.010 1.002 - 1.030 POC pH, UA 5 5.0 - 8.5 POC Leuk, UA neg Negative - Negative POC Nitrite, UA neg Negative - Negative POC Protein, UA trace Negative - Negative mg/dL POC Glucose, UA norm Normal - Normal mg/dL POC Ketone, UA neg Negative - Negative POC Urobil, UA norm 0.2 - 1.0 mg/dL POC Bili, UA neg Negative - Negative POC Blood, UA neg Negative - Negative ale/uL Duane Wong MD POINT OF CARE TEST O RDERABLES documented in this encounter Visit Diagnoses Diagnosis Unspecified urinary incontinence Prolapse of vaginal maurice Unspecified prolapse of vaginal maurice Mixed stress and urge urinary incontinence Mixed incontinence urge and stress (male)(female) documented in this encounter Care Teams Tool Turret Lathe Set Up Operator Relationship Specialty Start Date End Date Brunilda Hoyt APRN [address] [place] [address] PCP - General 11/23/10 1/17/16 documented as of this encounter
--- OUTSIDE RECORDS SUMMARY | 2024-02-21 21:44 | XMS_ITS | Encounter Summary ---
Author Organization [facility] [place] [address] Care Team Providers Care Cuprous Chloride Helper Name Role Phone Rocio Mo MD Primary Care Provider [phone] Encounter Details Date Type Department Care Team (Latest Contact Info) Description 07/25/2015 9:20 PM EST - 07/25/2015 11:59 PM EST Hospital Encounter Laboratory [facility] [place] [address] Discharge Disposition: Home Social History Tobacco Use Types Packs/Day Years Used Date Smoking Tobacco: Never Smokeless Tobacco: Never Comments:passive smoke expos ure Sex and Gender Information Value Date Recorded Sex Assigned at Not on file Gender Identity Not on file Sexual Orientation Not on file documented as of this encounter Medications at Time of Discharge Medication Sig Dispensed Refills Start Date End Date oxybutynin (DITROPAN-XL) 5 mg Tablet Extended Rel 24 hr Take 1 tablet by mouth daily. 90 tablet 6 04/19/2015 citalopram (CELEXA) 20 mg tablet Take 20 mg by mouth daily. levothyroxine (SYNTHROID) 25 mcg tablet Take 25 mcg by mouth daily. insulin glargine (LANTUS) 100 unit/mL injection 42 units, SQ, qpm 09/08/2008 insulin lispro (HUMALOG) 100 unit/mL injection 100 unit(s), SQ, as directed,with food 09/08/2008 montelukast (SINGULAIR) 10 mg tablet 09/08/2008 ALBUTEROL SULFATE INHL 2 puffs , Inh, q 6 hours prn 09/08/2008 lisinopril (PRINIVIL;ZESTRIL) 20 mg tablet 10mg, PO, Once daily 09/08/2008 aspirin (BABY ASPIRIN) 81 mg chewable tablet 09/08/2008 traZODone (DESYREL) 100 mg tablet 09/08/2008 pravastatin (PRAVACHOL) 40 mg tablet 09/08/2008 predniSONE (Deltasone) 20 mg Tablet as directed 07/19/2014 05/05/2021 amitriptyline (ELAVIL) 25 mg tablet Take 25 mg by mouth nightly. 05/05/2021 documented as of this encounter Plan of Treatment Not on file documented as of this encounter Visit Diagnoses Not on filedocumented in this encounter Care Teams Cuprous Chloride Helper Relationship Specialty Start Date End Date Rocio Mo MD [address] [place] [address] PCP - General Family Medicine 07/11/15 documented as of this encounter
--- OUTSIDE RECORDS SUMMARY | 2024-02-21 21:44 | XMS_ITS | Encounter Summary ---
Author Organization [facility] Address [address] [place] [address] Care Team Providers Care Seed Service Advisor Name Role Phone Unknown, Provider Primary Care Provider [phone] Encounter Details Date Type Department Care Team (Late st Contact Info) Description 08/03/2015 Results Only [facility] [phone] Georgi Mo MD [address] [place] [id number] Social History Tobacco Use Types Packs/Day Years [...] Diagnosis Comments PAP TEST- RESULT ONLY Routine 08/03/2015 0:00 EST documented in this encounter Results * PAP TEST- RESULT ONLY (08/03/2015 0:00 EST) Pathology Report: CYTOPATHOLOGY REPORT Reports generated via electronic interface contain original data; however they are lacking the format of the original report. Caution should be taken when reading/interpreti ng unformatted reports. Name: ? PREETI GARNER ? Accession #: ? [id number] ? : ? 1955 (Age: 60) ??F ?Collect Date: ? 08/03/2015 ? Location: ? [facility] ? Receive Date: ? 08/05/2015 ? Provider: GEORGI MO MD Copy to: ? Final Report SPECIMEN ADEQUACY ? Satisfactory for Evaluation - transformation zone component present GENERAL CATEGORIZATION ? Negative for Intraepithelial Lesion or Malignancy ?? 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 Roxana Amador, CT(ASCP) ? Report ??Date: 08/15/2015 10:07 HPV with Pap Test ? Date Ordered: ? 08/15/2015 ? Status: ?? Signed Out ?Date Complete: ? 08/17/2015 ? By: ??System Interface ? Date Reported: ? 08/17/2015 ? Interpretation RESULT: Negative for HPV. No E6 or E7 mRNA is detected from HPV types 16,18,31,33,35, 39,45,51,52,56,58, 59,66, and 68 by computer customer support specialist mediated amplification. Comments Document reviewed and electronically signed by: ? System Interface ? Report date: 08/17/2015 By the signature above, the attending physician certifies that he/she has personally conducted a gross and/or microscopic examination of the described specimens and rendered or confirmed the above diagnosis. End of Report [facility] 08/03/2015 08/05/2015 Georgi Mo MD PATHOLOGY ORDERABLE S [facility] [address] [place] [address] documented in this encounter Visit Diagnoses Not on filedocumented in this encounter Care Teams Seed Service Advisor Relationship Specialty Start Date End Date Unknown, Provider, PCP - General 04/28/15 documented as of this encounter
--- OUTSIDE RECORDS SUMMARY | 2024-02-21 21:44 | XMS_ITS | Clinical Summary ---
Author Organization [facility] [place] [address] Care Team Providers Care Telephone Lines Repairer Name Role Phone Rocio Mo MD Primary Care Provider [phone] Allergies Active Allergy Reactions Criticality Noted Date Comments Influenza Virus Vaccine, Specific 07/01/2015 Other reaction(s): NAUSEA/VOMITING Sulfamethoxazole-Trimethop rim CIS - Nausea/Vomiting Trimethoprim 07/01/2015 Other reaction(s): trimethoprim Medications Medication Sig Dispensed Refills Start Date End Date Status insulin glargine (LANTUS) 100 unit/mL injection 42 units, SQ, qpm 09/08/2008 Active insulin lispro (HUMALOG) 100 unit/mL injection 100 unit(s), SQ, as directed,with food 09/08/2008 Active montelukast (SINGULAIR) 10 mg tablet 09/08/2008 Active ALBUTEROL SULFATE INHL 2 puffs , Inh, q 6 hours prn 09/08/2008 Active lisinopril (PRINIVIL;ZESTRIL) 20 mg tablet 10mg, PO, Once daily 09/08/2008 Active aspirin (BABY ASPIRIN) 81 mg chewable tablet 09/08/2008 Active traZODone (DESYREL) 100 mg tablet 09/08/2008 Active pravastatin (PRAVACHOL) 40 mg tablet 09/08/2008 Active citalopram (CELEXA) 20 mg tablet Take 20 mg by mouth daily. Active levothyroxine (SYNTHROID) 25 mcg tablet Take 25 mcg by mouth daily. Active oxybutynin (DITROPAN-XL) 5 mg Tablet Extended Rel 24 hr Take 1 tablet by mouth daily. 90 tablet 6 04/19/2015 Active Jardiance 25 mg Tablet 04/05/2021 Active ketoconazole (Nizoral) 2 % Cream APPLY EXTERNALLY TO THE AFFECTED AREA OF FEET LESIONS TWICE DAILY UNTIL RASH IS GONE 03/20/2021 Active Myrbetriq 50 mg Tablet Sustained Release 24 hr 04/05/2021 Active Active Problems Problem Noted Date Diagnosed Date Seborrheic keratosis 07/25/2015 Solar lentigo 07/25/2015 CIS - Entered not Verified 08/11/2010 CIS - Diabetes Type II 06/24/1984 Overview (08/29/2010): complicated by non-proliferative retinopathy CIS - Asthma CIS - Depression Overview (08/29/2010): History of CIS - Fibromyalgia CIS - HTN CIS - Hyperlipidemia 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 CIS - Obesity CIS - Uterovaginal prolapse Family History Medical History Relation Comments Lymphoma Father Heart Defect Mother Lung Cancer Mother Relation Status Comments Father Mother Social History Tobacco Use Types Packs/Day Years Used Date Smoking Tobacco: Never Smokeless Tobacco: Never Comments:passive smoke expos ure Sex and Gender Information Value Date Recorded Sex Assigned at Not on file Gender Identity Not on file Sexual Orientation Not on file Last Filed Vital Signs Vital Sign Reading [...] Mass Index 39.33 05/05/2021 3:49 PM EST Plan of Treatment Health Maintenance Due Date Last Done Comments CT Colonography 1955 Colonoscopy 1955 Colorectal Cancer Screening 1955 FIT DNA 1955 FIT 1955 Sigmoidoscopy (10 year) with FIT yearly 1955 Sigmoidoscopy 1955 Hepatitis C Screening 1972 Tdap adult 1973 Tetanus vaccine 1973 Breast Cancer Share Decision Needed 1994 Breast Cancer screening 1994 Diabetes Screening (HgbA1C or Glucose) 1994 Zoster vaccine (1 of 2) 2004 Advance Directive 2009 Bone Density Scan 2019 Pneumoccocal Vaccine: 65+ (1 of 1 - PCV) 2019 Covid-19 Vaccine (1 - 2022-24 season) 2023 Influenza (Flu) vaccine (1 o f 1 - Influenza standard series) 02/23/2024 Care Teams Telephone Lines Repairer Relationship Specialty Start Date End Date Rocio Mo MD [address] [place], [place] [id number] PCP - General Family Medicine 07/11/15
--- OUTSIDE RECORDS SUMMARY | 2024-02-21 21:44 | XMS_ITS | Encounter Summary ---
Author Organization [facility] Address [address] [place] [address] Care Team Providers Care Embedded Linux Developer Name Role Phone Unknown, Provider Primary Care Provider [phone] Encounter Details Date Type Department Care Team (Late st Contact Info) Description 09/07/2021 Lab Requisition [facility] Pathology & Laboratory Medicine - [facility] [address] [place] [address] Outr Resulting Lab, Provider Social History Tobacco [...] Procedure Name Priority Date/Time Associated Diagnosis Comments HIV 1/2 ANTIGEN AND ANTIBODY, 4TH GENERATION Routine 09/06/2021 15:50 EDT documented in this encounter Results * HIV 1/2 ANTIGEN AND ANTIBODY, 4TH GENERATION (09/06/2021 15:50 EDT) HIV 1 and 2 Antibody/p24 Antigen, 4th Generation Negative Negative 09/08/2021 9:19 EDT [facility] Comment:If acute HIV-1 infec tion is suspected in a high risk patient, submit plasma specimen for HIV-1 RNA quantitation test. Blood VENOUS BLOOD / Unknown 09/06/2021 15:50 EDT 09/07/2021 17:16 EDT Narrative [facility] - 09/08/2021 9:19 EDT Fourth Generation assay performed on the Siemens InvenSenseaur XPT. Provider Outr Resulting Lab IMMUNOLOGY A ND SEROLOGY ORDERABLES [facility] [address] [place] [address] documented in this encounter Visit Diagnoses Not on filedocumented in this encounter Care Teams Embedded Linux Developer Relationship Specialty Start Date End Date Unknown, Provider, PCP - General 04/28/15 documented as of this encounter
--- OUTSIDE RECORDS SUMMARY | 2024-02-21 21:44 | XMS_ITS | Encounter Summary ---
Author Organization [facility] [place] [address] Care Team Providers Care Bird Tender Name Role Phone Rocio Mo MD Primary Care Provider [phone] Reason for Visit * Reason Comments Medication Refill Encounter Details Date Type Department Care Team (Late st Contact Info) Description 04/19/2015 Refill Obstetrics [place] [address] Lance Wong MD [facility] DR OBSTETRICS [place] [address] Social History Tobacco Use Types Packs/Day Years [...] on filedocumented in this encounter Care Teams Bird Tender Relationship Specialty Start Date End Date Rocio Mo MD [address] [place] [address] PCP - General Family Medicine 07/11/15 documented as of this encounter
--- OUTSIDE RECORDS SUMMARY | 2024-02-21 21:44 | XMS_ITS | Encounter Summary ---
Author Organization [facility] [place] [address] Care Team Providers Care Gut Cleaner Name Role Phone Dhruv Timmons APRN Primary Care Provider [phone] Encounter Details Date Type Department Care Team (Late st Contact Info) Description 04/19/2015 Orders Only Obstetrics [place] [address] Viviana Ma, RN Social History Tobacco Use Types Packs/Day Years [...] on filedocumented in this encounter Care Teams Gut Cleaner Relationship Specialty Start Date End Date Dhruv Timmons APRN [address] [place] [address] PCP - General 05/16/10 07/10/15 documented as of this encounter
--- OUTSIDE RECORDS SUMMARY | 2024-02-21 21:44 | XMS_ITS | Referral Summary ---
Author Organization [facility] Address [address] [place] [address] Care Team Providers Care Production Quality Manager Name Role Phone Unknown, Provider Primary Care Provider Social History Tobacco Use Types Packs/Day Years Used Date Smoking Tobacco: Never Assessed Sex and Gender Information Value Date Recorded Sex Assigned at Not on file Gender Identity Not on file Sexual Orientation Not on file Plan of Treatment Not on file Procedures Procedure Name Priority Date/Time Associated Diagnosis Comments HEPATITIS C AB W REFLEX TO HCV RNA BY PCR Routine 09/06/2021 15:50 EDT from Last 3 Months or Most Recently Relevant to Health Maintenance Results * HEPATITIS C AB W REFLEX TO HCV RNA BY PCR (09/06/2021 15:50 EDT) Hep C Antibody Negative Negative 09/08/2021 9:09 EDT [facility] Blood VENOUS BLOOD / Unknown 09/06/2021 15:50 EDT 09/07/2021 17:16 EDT Provider Outr Resulting Lab CHEMISTRY & BLOOD GAS ORDERABLES [facility] [address] [place] [address] from Last 3 Months or Most Recently Relevant to Health Maintenance Care Teams Production Quality Manager Relationship Specialty Start Date End Date Unknown, Provider, PCP - General 04/28/15
--- OUTSIDE RECORDS SUMMARY | 2024-02-21 21:44 | XMS_ITS | Encounter Summary ---
Author Organization [facility] Address [address] [place] [address] Care Team Providers Care Celery Cutter Name Role Phone Unknown, Provider Primary Care Provider Encounter Details Date Type Department Care Team (Late st Contact Info) Description 09/07/2021 Lab Requisition [facility] Pathology & Laboratory Medicine - [facility] [address] [place] [address] Outr Resulting Lab, Provider Social History Tobacco [...] RNA BY PCR Routine 09/06/2021 15:50 EDT documented in this encounter Results * HEPATITIS C AB W REFLEX TO HCV RNA BY PCR (09/06/2021 15:50 EDT) Hep C Antibody Negative Negative 09/08/2021 9:09 EDT [facility] Blood VENOUS BLOOD / Unknown 09/06/2021 15:50 EDT 09/07/2021 17:16 EDT Provider Outr Resulting Lab CHEMISTRY & BLOOD GAS ORDERABLES [facility] [address] [place] [address] documented in this encounter Visit Diagnoses Not on filedocumented in this encounter Care Teams Celery Cutter Relationship Specialty Start Date End Date Unknown, Provider, PCP - General 04/28/15 documented as of this encounter
--- OUTSIDE RECORDS SUMMARY | 2024-02-21 21:44 | XMS_ITS | Clinical Summary ---
Author Organization [facility] Address [address] [place] [address] Care Team Providers Care Associate Designer Name Role Phone Unknown, Provider Primary Care Provider [phone] Social History Tobacco Use Types Packs/Day Years Used Date Smoking Tobacco: Never Assessed Sex and Gender Information Value Date Recorded Sex Assigned at Not on file Gender Identity Not on file Sexual Orientation Not on file Plan of Treatment Health Maintenance Due Date Last Done Comments RSV Immunization ( o r 60+ Years) (1 - 1-dose 60+ series) 2014 Fall Risk Screening 2019 COVID-19 Vaccine ( season) 2023 Hepatitis C Screen Completed 09/06/2021 Procedures Procedure Name Priority Date/Time Associated Diagnosis Comments HEPATITIS C AB W REFLEX TO HCV RNA BY PCR Routine 09/06/2021 15:50 EDT from Last 3 Months or Most Recently Relevant to Health Maintenance Results * HEPATITIS C AB W REFLEX TO HCV RNA BY PCR (09/06/2021 15:50 EDT) Hep C Antibody Negative Negative 09/08/2021 9:09 EDT [facility] Blood VENOUS BLOOD / Unknown 09/06/2021 15:50 EDT 09/07/2021 17:16 EDT Provider Outr Resulting Lab CHEMISTRY & BLOOD GAS ORDERABLES [facility] [address] [place] [address] from Last 3 Months or Most Recently Relevant to Health Maintenance Care Teams Associate Designer Relationship Specialty Start Date End Date Unknown, ProviderMD [facility] - General 04/28/15
[2024-02-21 22:08] LABS: ALT 23 U/L (14-59); AST 10 U/L (15-37); Albumin 3.6 g/dL (3.4-5.0); Alkaline Phosphatase 88 U/L (46-116); Anion Gap 6.2 mmol/L (3-11); BUN 17 mg/dL (7-18); Bilirubin, Total 0.59 mg/dL (0.2-1.0); CO2 29.8 mmol/L (21.0-32.0); CREATININE 0.7 mg/dL (0.55-1.02); Calcium 9.3 mg/dL (8.5-10.1); Calculated LDL 160 mg/dL (<100); Chloride 103 mmol/L (98-107); Cholesterol 242 mg/dL (<200); Estimated GFR 93.56 (mL/min/1.73m2); Glucose 157 mg/dL (74-106); HDL Cholesterol 69 mg/dL (40-60); Potassium 4.3 mmol/L (3.5-5.1); Sodium 139 mmol/L (136-145); Total Protein 6.6 g/dL (6.4-8.2); Triglyceride 65 mg/dL (<150)
== END 2024-02-21 21:43 | disposition home or self-care (01) ==
LOC: LBN 21:42
PROVIDERS: PCP Nurse Practitioner Family; Visit Provider Nurse Practitioner Family
DX: E78.5 Hyperlipidemia, unspecified (principal); E11.8 Type 2 diabetes mellitus with unspecified complications; Z23 Encounter for immunization; Z12.39 Encounter for other screening for malignant neoplasm of breast
CPT/HCPCS: 80053; 80061

== ENCOUNTER 2024-03-06 00:44 | Outpatient (CLI) | payer MEDICARE, SELFPAY ==
--- NOTE | 2024-03-06 08:00 | DI.MAMMO_ITS ---
Exam(s) MAMMO SCREENING EXAM: MAMMO SCREENING CLINICAL HISTORY: screening,Z12.39 TECHNIQUE: Mammograms were interpreted according to the usual protocol including computer analysis w [employer] CAD system, tomosynthesis and C-view imaging. COMPARISON: 2015 through 2021 FINDINGS: The breasts are composed of scattered fibroglandular densities, Breast Density category B. No suspicious masses or suspicious microcalcifications are seen. No skin thickening or abnormal axillary lymph nodes are seen. There has been no significant change from prior exams. IMPRESSION: BI-RADS Category 1, Negative mammogram Yearly screening mammography is recommended. Breast Density - Category B, scattered fibroglandular densities. A negative radiographic report should not delay biopsy if a dominant or clinically suspicious mass is present. Up to ten percent of cancers are not identified on mammography. A negative report may reinforce clinical impression. Adenosis and dense breasts may obscure an underlying neoplasm. False positive reports average 6 to 10%. Patient will receive a letter notifying them of these results.
== END 2024-03-06 01:04 ==
LOC: DI 00:45
PROVIDERS: PCP Nurse Practitioner Family; Visit Provider Nurse Practitioner Family
DX: Z12.31 Encounter for screening mammogram for malignant neoplasm of breast (principal)
CPT/HCPCS: 77063; 77067

== ENCOUNTER 2025-02-24 11:17 | Outpatient (CLI) | payer MEDICARE, MEDICAID, SELFPAY ==
[2025-02-24 12:17] LABS: HCT 45.0 % (36.0-46.0); HGB 14.7 g/dL (11.2-15.7); MCH 29.5 pg (27.0-33.0); MCHC 32.7 % (32.0-36.0); MCV 90 fL (80-95); MPV 10.6 fL (8.0-11.0); Platelet Count 282 10^3/uL (130-400); RBC 4.98 10^6/uL (3.93-5.22); RDW 13.2 % (11.7-14.6); RDW-SD 43.8 fL; WBC 6.18 10^3/uL (4.4-10.8)
[2025-02-24 12:38] LABS: ALT 19 U/L (14-59); AST 11 U/L (15-37); Albumin 3.8 g/dL (3.4-5.0); Alkaline Phosphatase 90 U/L (46-116); Anion Gap 5.3 mmol/L (3-11); BUN 18 mg/dL (7-18); Bilirubin, Total 0.9 mg/dL (0.2-1.0); CO2 33.7 mmol/L (21.0-32.0); Calcium 9.8 mg/dL (8.5-10.1); Calculated LDL 106 mg/dL (<100); Chloride 100 mmol/L (98-107); Cholesterol 197 mg/dL (<200); Estimated GFR 79.22 (mL/min/1.73m2); Glucose 163 mg/dL (74-106); HDL Cholesterol 82 mg/dL (>or=50); Potassium 4.4 mmol/L (3.5-5.1); Sodium 139 mmol/L (136-145); TSH (W/Ref FT4) 3.10 uIU/mL (0.36-3.74); Total Protein 7.6 g/dL (6.4-8.2); Triglyceride 45 mg/dL (<150)
== END 2025-02-24 11:18 | disposition home or self-care (01) ==
LOC: LOS 11:17
PROVIDERS: PCP Nurse Practitioner Family; Referring Provider Nurse Practitioner Family; Visit Provider Nurse Practitioner Family
DX: E78.5 Hyperlipidemia, unspecified (principal); E03.9 Hypothyroidism, unspecified; K21.9 Gastro-esophageal reflux disease without esophagitis
CPT/HCPCS: 36415; 80053; 80061; 85027; 84443

== ENCOUNTER 2025-04-20 00:53 | Outpatient (CLI) | payer MEDICARE, SELFPAY ==
--- NOTE | 2025-04-20 06:30 | DI.DEXA_ITS ---
Exam(s) XR DEXA BONE DENSITY W/WO GRACY EXAM: XR DEXA BONE DENSITY W/WO GRACY CLINICAL HISTORY: screening for osteoporosis,POSTMENOPAUSAL STATUS,Z78.0 TECHNIQUE: Routine DEXA evaluation of the lumbar spine, hip, or forearm. COMPARISON: DX DEXA BONE DENSITY WITH GRACY from 08/20/2017 FINDINGS: Performed on a [employer] unit. Lateral image: No compression fracture evident. Lumbar Spine total T-score: -1.0 which is within normal limits. Previous reading in 2018 was -0.8 Hip total T-score:-0.4 which is within normal limits. Previous reading 2018 was 0.3. Independent reading at the level of the femoral neck yields T-score of -1.4 which is osteopenia range. Prior reading in 2018 at this level was -0.8 Forearm total T-score: -0.4 which is within normal limits. Prior reading in 2018 was 0.3. IMPRESSION: Compared to the prior study of July 2017 there is now an element of osteopenia at the femoral neck level indicating moderate risk for fracture at this level. The readings at the lumbar spine and wrist level remain within normal limits and therefore with low risk for fracture at these levels. Note: Any spine fracture indicates 5x risk for subsequent spine fracture and 2x risk for subsequent hip fracture. World Health Organization criteria for BMD interpretation classify patients: Normal...... T- Score at or above -1.0 Osteopenic... T- Score between -1.0 and -2.5 Osteoporosis... T-Score at or below -2.5
--- NOTE | 2025-04-20 08:39 | DI.MAMMO_ITS ---
Exam(s) MAMMO SCREENING EXAM: MAMMO SCREENING CLINICAL HISTORY: screening,Z12.39. TECHNIQUE: Bilateral full field digital CC and MLO mammographic images were obtained with 3D tomosynthesis and utilizing computer aided detection (CAD). COMPARISON: Prior mammograms were reviewed. FINDINGS: There has been no significant change in the appearance and distribution of the fibroglandular tissue. No CAD designations. There are no new spiculated masses nor malignant appearing microcalcification groups. There is no significant architectural distortion nor skin thickening-retraction. IMPRESSION: No radiographic evidence of malignancy. BI-RADS Category 1 - Negative Breast Density - Category B - There are scattered areas of fibroglandular density. Breast density Category C or D implies that the patient has dense breast tissue. Dense breast tissue can make it harder to find cancer on a mammogram. Dense breast tissue is also associated with an increased risk of breast cancer. This information about the result of the mammogram report was provided to the patient to raise their awareness. Use this report when you speak with the patient about their risks for breast cancer, which includes their family history. At that time, you may recommend additional screening tests (Ultrasound or MRI) as these tests may add significant information. A negative radiographic report should not delay biopsy if a dominant or clinically suspicious mass is present. Up to ten percent of cancers are not identified on mammography. A negative report may reinforce clinical impression. Adenosis and dense breasts may obscure an underlying neoplasm. False positive reports average 6 to 10%. Patient will receive a letter notifying them of these results.
== END 2025-04-20 01:13 ==
PROVIDERS: PCP Nurse Practitioner Family; Visit Provider Nurse Practitioner Family
DX: Z12.39 Encounter for other screening for malignant neoplasm of breast (principal); E03.9 Hypothyroidism, unspecified; Z78.0 Asymptomatic menopausal state
CPT/HCPCS: 77063; 77067; 77080